=== PATIENT | female | born 1950 | race Caucasian/White ===

== ENCOUNTER 2018-04-07 12:29 | Emergency (ER) | payer MEDICARE, OTHER, SELFPAY ==
--- NOTE | 2018-04-07 | DI.RAD.S_ITS ---
PROCEDURE: XR WRIST LT 2V INDICATIONS: POST CLOSED REDUCTION left wrist TECHNIQUE: 3 views of the wrist were acquired. COMPARISON: [facility], CR, XR WRIST LT MIN 3V, 04/07/2018, 12:55. FINDINGS: Bones: Improved alignment, status post reduction of distal radial and ulnar fractures. There is residual loss of the normal volar angulation of the distal radial articular surface Soft tissues: No suspicious soft tissue calcifications. IMPRESSION: Improved alignment. Dictated by: Clement Cota M.D. on 04/07/2018 at 14:55 Approved by: Clement Cota M.D. on 04/07/2018 at 14:56
[2018-04-07 12:32] VITALS: BP 173/104; PULSE 100; RESP 18; TEMP 36.3; O2SAT 100; BMI 19.3
--- NOTE | 2018-04-07 12:36 | ED_ITS ---
HPI - Fall <Rut Llanos PA-C - Last Filed: 04/07/18 21:29> General Chief Complaint: Extremity Injury, Upper Stated Complaint: LT WRIST FELL Time Seen by Provider: 04/07/18 12:35 Source: patient Mode of arrival: ambulatory Limitations: no limitations History of Present Illness HPI Narrative: This 67-year-old female, right handed, slipped on some ice in her driveway and fell onto her left hand and wrist ( hand and wrist were behind her). She has had pain and swelling since then and concern for fracture as she has a history of osteoporotic fractures including scaphoid fracture in that hand. She denies any head contusion, LOC, or other injury. She took Tylenol at home with some water, other than that last PO 8 a.m. today Related Data Home Medications Medication Instructions Recorded Confirmed carbamazepine 400 mg PO Q12H #0 09/24/16 pramipexole 0.5 mg PO #0 09/24/16 valsartan 160 mg PO QDAY #0 09/24/16 Previous Rx's Medication Instructions Recorded hydrocodone-acetaminophen [Central] 1 tab PO Q4-6H PRN #10 tab 04/07/18 Allergies Allergy/AdvReac Type Severity Reaction Status Date / Time clindamycin [CLINDAMYCIN] Allergy Unknown Verified 04/07/18 12:36 cyclobenzaprine Allergy Unknown Verified 04/07/18 12:36 [CYCLOBENZAPRINE] iodine [IODINE] Allergy Unknown Verified 04/07/18 12:36 Penicillins [PENICILLINS] Allergy Unknown Verified 04/07/18 12:36 phenytoin [PHENYTOIN] Allergy Unknown Verified 04/07/18 12:36 Review of Systems <Rut Llanos PA-C - Last Filed: 04/07/18 21:29> Review of Systems ROS Unobtainable: All systems reviewed & are unremarkable except as noted in HPI and below Exam <Rut Llanos PA-C - Last Filed: 04/07/18 21:29> Narrative Exam Narrative: GENERAL APPEARANCE: Patient sitting comfortably, in no distress. LUNGS: Clear to auscultation bilaterally. HEART: Rate and rhythm regular without murmur, normal S1 and S2, no S3 or S4. MUSCULOSKELETAL: Left posterior wrist there is moderate effusion at the joint line which is tender. She is not able to move the wrist secondary to tenderness. She has mild tenderness in the left ulnar groove, no tenderness elsewhere over the forearm. Left 5th finger has flexion deformity. She otherwise has full range of motion of the left hand fingers with superintendent general and strength intact against resistance. She has tenderness in the left snuffbox, no tenderness elsewhere over the metacarpals or fingers. DERMATOLOGIC: Ecchymoses and hematoma left posterior wrist at the joint line NEUROVASCULAR: Left hand fingers are warm and pink with brisk cap refill, sensation grossly intact Initial Vital Signs Initial Vital Signs: Vital Signs Temperature 97.3 F L 04/07/18 12:32 Pulse Rate 100 H 04/07/18 12:32 Respiratory Rate 18 04/07/18 12:32 Blood Pressure 173/104 H 04/07/18 12:32 Pulse Oximetry 100 04/07/18 12:32 <Rae James DO - Last Filed: 04/08/18 07:23> Initial Vital Signs Initial Vital Signs: Vital Signs Temperature 97.3 F L 04/07/18 12:32 Pulse Rate 100 H 04/07/18 12:32 Respiratory Rate 18 04/07/18 12:32 Blood Pressure 173/104 H 04/07/18 12:32 Pulse Oximetry 100 04/07/18 12:32 PFSH <Rut Llanos PA-C - Last Filed: 04/07/18 21:29> Medical History Epilepsy (Chronic) H/O: HTN (hypertension) (Chronic) Osteoporosis (Chronic) Surgical History Status post decompression of ulnar nerve (Resolved) Family History Other No pertinent family history in first degree relatives Social History Smoking Status: Former smoker Family History Other No pertinent family history in first degree relatives Social History Smoking Status: Former smoker Course <Rut Llanos PA-C - Last Filed: 04/07/18 21:29> Additional Information: Dr. Thompson came to ED to evaluate patient. She did a hematoma block on the wrist, reduced the fracture and placed a splint herself. The fracture appeared well aligned on x-ray. Patient was placed in a sling and reported feeling much more comfortable. She will follow up with Dr. Thompson in her office Orders Ordered: Discontinued Medications Hydrocodone Bitart/Acetaminophen (Central 5/325) 1 tab PO NOW ONE Stop: 04/07/18 13:26 Last Admin: 04/07/18 13:52 Dose: 1 tab Vital Signs - 8 hr 04/07/18 12:32 Temperature 97.3 F L Pulse Rate 100 H Respiratory Rate 18 Blood Pressure 173/104 H Pulse Oximetry 100 <Rae James DO - Last Filed: 04/08/18 07:23> Orders Ordered: Discontinued Medications Hydrocodone Bitart/Acetaminophen (Central 5/325) 1 tab PO NOW ONE Stop: 04/07/18 13:26 Last Admin: 04/07/18 13:52 Dose: 1 tab Vital Signs - 8 hr 04/07/18 12:32 Temperature 97.3 F L Pulse Rate 100 H Respiratory Rate 18 Blood Pressure 173/104 H Pulse Oximetry 100 MDM - Fall <Rut Llanos PA-C - Last Filed: 04/07/18 21:29> Imaging Data hand and wrist: Radiologist's impression: [address] [address] XRay Report Signed Patient: Luz Koch EMR#: [id number] : 1950cct:[id number] Age/Sex: 67 / FDate of Service: 04/07/18 Loc: ED Accession Number: [id number] Procedure: XR hand LT min 3V Ordering Provider: Rut Llanos P.A-C PROCEDURE: XR HAND LT MIN 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 COMPARISON: [facility], [place], XR WRIST LT MIN 3V, 04/07/2018, 12:55. FINDINGS: Bones: First CMC and triscaphe joint degeneration. Chronic appearing deformity of the scaphoid presumably from clinic reported prior scaphoid fracture. There is acute impacted distal radial fracture as well as ulnar styloid fracture, better characterized on the comparison wrist radiographs dated same day Soft tissues: No suspicious soft tissue calcifications. IMPRESSION: No definite acute scaphoid fracture although chronic deformity from remote trauma. Impacted distal radial and ulnar styloid tip fracture Dictated by: Clement Cota M.D. on 04/07/2018 at 13:18 Approved by: Clement Cota M.D. on 04/07/2018 at 13:20 Chart Viewer Diagnostics Hx 04/07/18 13:21 Clement Cota 04/07/18 13:19 CotaKendrickClement Elpidio Kochia Nitin 67, F1950 REG ER, ED - Main ED: R07 160.02cm 49.442kg BMI: 19.3kg/m? Extremity Injury, Upper Search Chart ONSET Today 12:32 Gloria Kochricia Nitin 67 F 1950 [place] [address] XRay Report Signed Patient: Luz Koch EMR#: [id number] : 1950cct:[id number] Age/Sex: 67 / FDate of Service: 04/07/18 Loc: ED Accession Number: [id number] Procedure: XR wrist LT min 3V Ordering Provider: Rut Llanos P.A-C PROCEDURE: XR WRIST LT MIN 3V INDICATIONS: fall w/ left wrist pain. TECHNIQUE: 4 views of the wrist were acquired. COMPARISON: None. FINDINGS: Bones: Impacted fracture of the distal radial metaphysis with intra-articular extension. There is also minimally displaced ulnar styloid fracture Associated circumferential soft tissue swelling. IMPRESSION: Impacted intra-articular distal radial metaphyseal fracture. Ulnar styloid fracture. Dictated by: Clement Cota M.D. on 04/07/2018 at 13:17 Approved by: Clement Cota M.D. on 04/07/2018 at 13:18 Discharge Plan Departure Patient Disposition: Home Clinical Impression: Fracture of radius and ulna Qualifiers: Encounter type: initial encounter Fracture type: closed Laterality: left Qualified Code(s): S52.92XA - Unspecified fracture of left forearm, initial encounter for closed fracture Discharge Date/Time: 04/07/18 14:56 Interventions: ED Discharge Assessment Last Done: 04/07/18 14:55 Instructions: DI for Distal Radius Fracture Activity Restrictions/Additional Instructions: you have breaks at the ends of both of the bones in your forearm, and the radius ( on the thumb side) was impacted. Dr. Camara has reduced this today, and the alignment looks good. She will want you to call tomorrow and follow-up in her office next week, so please let them know that she saw you in the emergency room today and wants you to follow up in the office this week. Return right away if you have any acutely worsening pain or problems with the splint in the interim. You can take the hydrocodone /acetaminophen if you needed, but remember it can make you sleepy. You can change back to Tylenol when your pain is better (you may wish to try Tylenol arthritis Strength or 8 hr which is a lower dose and longer lasting ). You can wear the arm sling as needed for comfort and support until you follow up. It is okay to take that off as well, but make sure you leave the splint on at all times and keep it dry. Prescriptions: New hydrocodone-acetaminophen [Central] 5-325 mg tablet 1 tab PO Q4-6H PRN (Reason: wrist fracture pain) Qty: 10 RF: 0 No Action pramipexole 0.5 MG tablet 0.5 mg PO Qty: 0 RF: 0 carbamazepine 400 MG tablet extended release 12 hr 400 mg PO Q12H Qty: 0 RF: 0 valsartan 160 MG tablet 160 mg PO QDAY Qty: 0 RF: 0 Referrals: Kiley Thompson MD [Physician] - <Rae James DO - Last Filed: 04/08/18 07:23> [facility] I was immediately available in the department for consultation. This documentation has been reviewed and I agree with assessment and plan. Supervised by Rae James DO
--- NOTE | 2018-04-07 12:39 | DI.RAD.S_ITS ---
PROCEDURE: XR WRIST LT MIN 3V INDICATIONS: fall w/ left wrist pain. TECHNIQUE: 4 views of the wrist were acquired. COMPARISON: None. FINDINGS: Bones: Impacted fracture of the distal radial metaphysis with intra-articular extension. There is also minimally displaced ulnar styloid fracture Associated circumferential soft tissue swelling. IMPRESSION: Impacted intra-articular distal radial metaphyseal fracture. Ulnar styloid fracture. Dictated by: Clement Cota M.D. on 04/07/2018 at 13:17 Approved by: Clement Cota M.D. on 04/07/2018 at 13:18
--- NOTE | 2018-04-07 12:57 | DI.RAD.S_ITS ---
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 COMPARISON: [facility], CR, XR WRIST LT MIN 3V, 04/07/2018, 12:55. FINDINGS: Bones: First CMC and triscaphe joint degeneration. Chronic appearing deformity of the scaphoid presumably from clinic reported prior scaphoid fracture. There is acute impacted distal radial fracture as well as ulnar styloid fracture, better characterized on the comparison wrist radiographs dated same day Soft tissues: No suspicious soft tissue calcifications. IMPRESSION: No definite acute scaphoid fracture although chronic deformity from remote trauma. Impacted distal radial and ulnar styloid tip fracture Dictated by: Clement Cota M.D. on 04/07/2018 at 13:18 Approved by: Clement Cota M.D. on 04/07/2018 at 13:20
[2018-04-07] MEDS: HYDROCODONE/ACET 5/325 TABLET 1 TAB PO (13:52)
--- NOTE | 2018-04-07 15:07 | PM.CN ---
History of Present Illness Date Patient Seen: 04/07/18 Time Patient Seen: 14:30 Chief complaint: LT WRIST FELL Reason for consult: Wrist fracture Requesting provider: Rut Llanos Narrative: Marcos is a 67-year-old female that is right-hand dominant. She presents to the ER with left wrist pain and deformity after falling on the ice. The patient had just come back from a trip to [place] for 3 weeks last night when she fell on the ice and sustained immediate pain ecchymosis and deformity of her non dominant wrist. Patient was seen in the emergency room and found to have a displaced distal radius fracture with dorsal angulation. 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 She has had previous ulnar nerve surgeries by Dr. Marie and Dr. Cabral. She also has a previous history of a distal pole scaphoid fracture on the left side. Patient denies new numbness and tingling today has no evidence of acute carpal tunnel syndrome. He denies injury elsewhere on her body. She denies fevers or chills PFSH Medical History Epilepsy (Chronic) H/O: HTN (hypertension) (Chronic) Osteoporosis (Chronic) Surgical History Status post decompression of ulnar nerve (Resolved) Family History Other No pertinent family history in first degree relatives Social History Smoking Status: Former smoker Family History Other No pertinent family history in first degree relatives Social History Smoking Status: Former smoker Meds Home Medications Medication Instructions Recorded Confirmed Type carbamazepine 400 mg PO Q12H #0 09/24/16 History pramipexole 0.5 mg PO #0 09/24/16 History valsartan 160 mg PO QDAY #0 09/24/16 History hydrocodone-acetaminophen [[place]] 1 tab PO Q4-6H PRN #10 tab 04/07/18 Rx Allergies Allergy/AdvReac Type Severity Reaction Status Date / Time clindamycin [CLINDAMYCIN] Allergy Unknown Verified 04/07/18 12:36 cyclobenzaprine Allergy Unknown Verified 04/07/18 12:36 [CYCLOBENZAPRINE] iodine [IODINE] Allergy Unknown Verified 04/07/18 12:36 Penicillins [PENICILLINS] Allergy Unknown Verified 04/07/18 12:36 phenytoin [PHENYTOIN] Allergy Unknown Verified 04/07/18 12:36 Review of Systems Review of Systems All systems reviewed & are unremarkable except as noted in HPI and below Exam Vital Signs (past 8 hours): - 04/07/18 12:32 Temperature 97.3 F L Pulse Rate 100 H Respiratory Rate 18 Blood Pressure 173/104 H Pulse Oximetry 100 Oxygen Delivery Method Room Air Narrative Exam Narrative: General examination: Patient is alert and oriented female in no acute distress. HEENT exam: Normocephalic atraumatic Respiratory exam: Unlabored to room air Cardiovascular exam: Regular rate and rhythm Abdomen exam: Benign Musculoskeletal examination: Right upper extremity and both lower extremities show no gross deformity and full range of motion. Sensation grossly intact to light touch and normal strength. Demonstrates active wrist flexion extension elbow wrist flexion extension and ankle motion of the bilateral lower extremities. Left upper extremity demonstrates a deformity noted at the wrist with a dorsal moderate hematoma. Sensation grossly intact to light touch mild swelling no erythema no signs or symptoms of infection. No evidence of open fracture. She demonstrates full flexion extension of the elbow. No pain about the shoulder. Brisk capillary refill Objective Imaging X-ray left wrist: My impression: X-ray left wrist pre reduction demonstrate a dorsally impacted distal radius fracture with approximately 25? of dorsal angulation. Does appear to be a nondisplaced fracture line into the joint surface. There is also a very small ulnar styloid fracture. There is a deformity at the distal scaphoid consistent with her known history of previous trauma and moderate arthritic changes throughout the carpus. Radiologist's impression: IMPRESSION: Impacted intra-articular distal radial metaphyseal fracture. Ulnar styloid fracture. Dictated by: Clement Cota M.D. on 04/07/2018 at 13:17 Approved by: Clement Cota M.D. on 04/07/2018 at 13:18 X-ray left wrist postreduction: My impression: X-ray left wrist AP lateral including a lateral during the reduction procedure demonstrate improved alignment of the impacted distal radius fracture with dorsal tilt reduced to less than 10? in the final in splint x-rays. Reduction x-ray appears approximately neutral angulation. Radiologist's impression: IMPRESSION: Improved alignment. Dictated by: Clement Cota M.D. on 04/07/2018 at 14:55 Approved by: Clement Cota M.D. on 04/07/2018 at 14:56 Assessment & Plan Assessment Narrative: 1. Left distal radius and ulnar fractures intra-articular with dorsal displacement Time Spent With Patient Time with patient: 25 - 35 minutes
--- NOTE | 2018-04-07 15:18 | PM.PROC.1 ---
Procedures Date/Time Date of procedure: 04/07/18 Time of procedure: 14:30 Orthopedic Fracture Reduction Time out performed: Yes Side: left Fracture reduction location: radius Analgesia: hematoma block Technique: direct manipulation Post-reduction neuro exam: intact Post-reduction vascular exam: intact Splint applied: Yes Patient tolerated procedure: well Additional comments: After a verbal consent was obtained the patient underwent a hematoma block of the left wrist with 10 cc of a 50 50 mixture of 0.5% Marcaine and 2% lidocaine. The patient was then hung in traction from an IV pole with a 6 lb of weight for approximately 10 min for ligamentoaxis. Following this the with direct manipulation and standard 3 point mold manipulation to reduce the distal radius fracture this was held in position and x-rays were obtained showing improved angulation of the radius to approximately neutral while holding of the wrist in flexion. The wrist was then splinted in a sugar-tong style splint and post reduction x-rays were obtained. The patient tolerated the procedure well.
== END 2018-04-07 14:56 | disposition home or self-care (01) ==
PROVIDERS: Emergency Provider Internal Medicine
DX: S52.92XA Unspecified fracture of left forearm, initial encounter for closed fracture (principal); W01.0XXA Fall on same level from slipping, tripping and stumbling without subsequent striking against object, initial encounter
CPT/HCPCS: 73100; 73110; 73130; 99282; 99283

== ENCOUNTER 2018-05-03 10:41 | Day surgery (SDC) | payer MEDICARE, OTHER, SELFPAY ==
[2018-05-02 07:41] VITALS: BMI 20.5
[2018-05-03 11:30] VITALS: BMI 19.8
[2018-05-03 11:42] VITALS: BP 155/97; PULSE 80; RESP 16; TEMP 36.4; O2SAT 98
[2018-05-03] MEDS: LACTATED RINGERS 1,000 ML 42 ML IV (11:56)
--- NOTE | 2018-05-03 12:50 | PM.PREOP ---
Pre-operative Note Interval Note History & Physical reviewed/Exam performed by Physician: Yes Changes to H&P: No
[2018-05-03] MEDS: CEFAZOLIN 2 GM/100 ML FROZ.PIGGY IV (12:55)
--- NOTE | 2018-05-03 13:00 | P.OP_ITS ---
Operative Date/Time/Diagnoses Date of procedure: 05/03/18 Time of procedure: 13:15 Pre-op diagnosis: 1. closed intra-articular fracture left distal radius S52.572 2. closed displaced fracture ulnar styloid left S52.612 Post-op diagnosis: same Procedure & Clinicians Procedure: open reduction internal fixation left distal radius fracture CPT code 81312 Closed treatment left ulnar styloid fracture Same procedure as scheduled: Yes Indications: the patient is a 67-year-old female with a left distal radius and ulnar styloid fractures. She had a loss of reduction and increased dorsal angulation of approximately 25? which was increased significantly from a x-ray 2 weeks ago that was in a cast. She has been indicated for open reduction internal fixation due to significant cosmetic deformity and range of motion reduction. The patient is very active and wishes to have surgery. We discussed the older lower demand patients often do well with non operatively treated distal radius fractures however the deformity would remain and loss of motion would be expected. The patient would like to proceed with surgery. Discussed risks associated with surgery including infection, hardware irritation, Malunion, nonunion, nerve irritation, damage to vessels and tendons and risks of anesthesia including stroke paralysis and . The patient understands and like to proceed with surgery. informed consent was signed in the office. Surgeon: Kiley Thompson Legal Support Assistant: April Kwon Anesthesia Type: General and Local Operative Notes Findings: Dorsally angulated left distal radius fracture, dorsal comminution. moderate soft callus formation, Dorsally partly healed fracture volarly. Closure Type: primary Specimen(s): none sent Prosthetic devices, grafts, tissues, transplants, or devices: [employer] narrow standard plate left Estimated Blood Loss (mL): 10 Blood products transfused: none Tourniquet time (min): 73 Procedure in detail: The patient sustained a left displaced distal radius and ulnar styloid fractures, she initially had a hematoma block reduction and we had adequate alignment in a splint at 1 week postoperative visit so this was overwrapped. The patient refers turned for additional followup she is noted to have collapse of her fracture increased dorsal angulation and evolving malunion. Patient was indicated for operative reduction and internal fixation restore volar alignment and stability and present motion loss. Risks benefits alternatives of procedure were discussed at length patient and expressed her understanding these included but were not limited to bleeding, infection, damage to nerves, prominent hardware, pain, malunion, nonunion, blood clots, pulmonary embolus, cardiovascular risks associated with general anesthesia. Informed consent was signed in the office. Patient was seen and site of surgery was marked in the preoperative area. The patient was then brought to the operating room by the anesthesia team and placed on the operative table in a standard fashion the supine position with a hand table on the left side. General anesthesia was administered. These were on the legs and all bony prominences were padded. A nonsterile brachial tourniquet was placed. A formal time-out procedure was performed confirming the patient's side and site of surgery and administration of appropriate preoperative antibiotics. All personnel agreed. Implants were present. After formal sterile prep and draping the extended FCR approach was marked out on the wrist. Esmarch was then utilized for exsanguination the tourniquet raised to 250 mm of mercury and stayed there for 73 min. Extended FCR approach was undertaken a sharp dissection was taken to the skin. FCR was exposed and the sheath was opened. Tendon was retracted ulnar to protect the palmar cutaneous branch of the median nerve. The floor of the FCR was then opened to expose the deep muscles. FPL was retracted ulnarly and the pronator quadratus was released on the radial border and reflected ulnar to expose the distal radius and the distal fracture. Fracture was nearly healed volarly. The brachioradialis was released and the radial sheath was released exposing the 1st extensor compartment tendons. These were retracted to allow access to the dorsal cortex. Retractor was used to protect the extensor tendons while a curette was used to clean the fracture callus from the dorsal of the distal radius. Additionally a blade was used volarly to her mobilize the distal fragment. Once this was completed palmar flexion was completed to her restore the volar angulation of the distal radius. Next a standard narrow plate from the [employer] set was fit to the distal radius this was secured to the shaft with a 3.5 screw in the oblong hole. The proximal distal location of the plate was adjusted using fluoroscopy imaging. Once this was selected K-wire was placed through the proximal K-wire hole in the plate. Then the shaft screw was secured. Next to the ulnar proximal screw was placed and secured with a fully threaded peg. Next a fully threaded peg was placed in the a radial styloid screw hole. This was checked on x-ray and adequate alignment was determined there for the rest of the distal site filled with smooth locking pegs. Attention was returned to the shaft and 2 more bicortical screws were placed in the shaft. Final x-rays were obtained in the AP and lateral planes in additionally flexion extension views were taken to confirm range of motion and additional views were taken to confirm no intra-articular penetration of the screws. we were satisfied with the alignment. The tourniquet was released hemostasis was achieved and the pronator quadratus was closed over the plate using a of 3 0 Vicryl suture deep. Subcutaneous suture was completed with 4 0 Monocryl 3 0 Vicryl and 3 O nylon. Sterile dressings and a volar splint were applied. No immediate complications from this procedure noted. All surgical counts were correct. The patient tolerated the procedure well was taken to the recovery room good condition. Complications: none Condition: stable Disposition: PACU Plan for aftercare: Maintain splint clean and dry. patient is encouraged to move the fingers to avoid stiffness and help with swelling reduction. Ibuprofen and Tylenol as needed for pain control. May do finger range of motion and elbow range of motion as tolerated. 2 lb lifting restriction ( Lift no more than a coffee cup). Return to clinic in 2 weeks for splint removal suture removal and placement of removable wrist brace. Start physical therapy/hand therapy at 2 weeks postoperatively to work on wrist hand and elbow range of motion. Maintain 2 lb weight limit.
--- NOTE | 2018-05-03 13:19 | SUR.OPER ---
Supine on padded OR bed, head on pillow, RIGHT arm secured on padded arm board at <90 degrees abduction, LEFT ARM ON STERILE ARMBOARD legs uncrossed, safety belt at thigh, tape over blanket over lower legs.
[2018-05-03] MEDS: BUPIVACAINE 0.25% (PF) VIAL 30 ML INJ (13:24)
[2018-05-03 15:02] VITALS: BP 142/91; PULSE 86; RESP 15; TEMP 36.1; O2SAT 96
[2018-05-03 15:05] VITALS: BP 129/83; PULSE 78; RESP 16; O2SAT 96
[2018-05-03 15:10] VITALS: BP 154/94; PULSE 85; RESP 16; O2SAT 96
[2018-05-03] MEDS: fentaNYL 100 MCG/2 ML INJ 50 MCG IV ×2 (15:19→15:27)
[2018-05-03 15:25] VITALS: BP 165/97; PULSE 84; RESP 17; O2SAT 96
[2018-05-03] MEDS: HYDROCODONE/ACET 5/325 TABLET 1 TAB PO (15:47)
[2018-05-03 15:48] VITALS: BP 158/96; PULSE 80; RESP 16; TEMP 36.9; O2SAT 96
== END 2018-05-03 16:07 | disposition home or self-care (01) ==
PROVIDERS: PCP Family Medicine; Visit Provider Orthopaedic Surgery Foot and Ankle Surgery
PROC: (CPT 25608; principal; 2018-05-03 12:30)
DX: S52.572A Other intraarticular fracture of lower end of left radius, initial encounter for closed fracture (principal); S52.612A Displaced fracture of left ulna styloid process, initial encounter for closed fracture; W00.9XXA Unspecified fall due to ice and snow, initial encounter; M81.0 Age-related osteoporosis without current pathological fracture
CPT/HCPCS: 25608; J0690; J1100; J2405; J2704; J3010

== ENCOUNTER 2018-05-23 17:32 | Inpatient (IN) | payer MEDICARE, OTHER, SELFPAY ==
--- NOTE | 2018-05-23 | DI.RAD.S_ITS ---
PROCEDURE: XR CHEST 1V INDICATIONS: LEFT HIP PAIN TECHNIQUE: One view of the chest was acquired. COMPARISON: None. FINDINGS: Surgical changes and devices: None. Lungs and pleura: Lungs are clear except for a mild interstitial prominence, but the inspiratory volume is reduced which accentuates the lung markings. No pleural effusions or pneumothorax. Mediastinum: Mediastinal contours appear normal. Heart size is normal. Bones and chest wall: No suspicious bony lesions. Overlying soft tissues appear unremarkable. IMPRESSION: Reduced inspiratory volume, what appears to be a very mild degree of interstitial prominence is present but no acute disease or evidence of underlying infection or neoplasm is found. Dictated by: Agapito Knutson M.D. on 05/23/2018 at 18:44 Approved by: Agapito Knutson M.D. on 05/23/2018 at 18:45
[2018-05-23 17:47] VITALS: BP 182/110; PULSE 112; RESP 16; TEMP 36.9; O2SAT 98; BMI 19.5
--- NOTE | 2018-05-23 17:49 | DI.RAD.S_ITS ---
PROCEDURE: XR HIP W PEL IF DONE LT 2V INDICATIONS: pain fall TECHNIQUE: 2 views of the hip were acquired. COMPARISON: None. FINDINGS: Bones: No dislocations. No suspicious bony lesions. The visualized pelvic ring appears intact. There is a intertrochanteric left hip fracture, without additional injury to the pelvis. The left symphysis pubis is seen and on and may be slightly distorted. Soft tissues: No suspicious soft tissue calcifications or masses. Impression: Acute intertrochanteric left hip fracture, possible fracture the symphysis pubis on the left. A pelvic CT appears scheduled and would more accurately assess the area of the symphysis pubis. IMPRESSION: Dictated by: Agapito Knutson M.D. on 05/23/2018 at 18:36 Approved by: Agapito Knutson M.D. on 05/23/2018 at 18:38
[2018-05-23] MEDS: MORPHINE 2 MG/ML INJ IV (18:08)
--- NOTE | 2018-05-23 18:11 | DI.CT.S_ITS ---
PROCEDURE: CT PEL WO CON INDICATIONS: fracture left hip and pelvis TECHNIQUE: Noncontrast 3 mm axial sections acquired through the bony pelvis, with coronal and sagittal reformatting. COMPARISON: [facility], , L-SPINE 2-3 VIEWS, 09/01/2010, 15:51. FINDINGS: Image quality: Excellent. Bones: Definite acute intertrochanteric left hip fracture, angulated and mildly impacted. There is a distortion of the symphysis pubis on the left, and in this clinical circumstance it may reflect acute trauma but also could represent sequela of old fracture. Soft tissues: No hematoma found. IMPRESSION: Acute intertrochanteric left hip fracture. Possible acute versus subacute or chronic left symphysis pubis fracture-please correlate clinically. A point tenderness is currently present exactly at that site acute fracture would be presumed. Please note that MR scanning can easily differentiate between chronic versus acute injuries of the osseous structures of the pelvis. Dictated by: Agapito Knutson M.D. on 05/23/2018 at 18:58 Approved by: Agapito Knutson M.D. on 05/23/2018 at 19:00
[2018-05-23 18:53] VITALS: BP 172/101; PULSE 114; RESP 18; O2SAT 98
--- NOTE | 2018-05-23 19:25 | ED.FALL ---
HPI - Fall <BALTAZAR Barnhart - Last Filed: 05/23/18 22:04> General Chief Complaint: Fall Stated Complaint: GLF Time Seen by Provider: 05/23/18 17:49 Source: patient and EMS Mode of arrival: EMS Limitations: no limitations History of Present Illness HPI Narrative: 67-year-old female with history of hypertension and is a nonsmoker here for complaint of pain into her left hip. She had a ground level fall where she tripped over 1 of her rugs landing on her left hip area. She states that the pain is limited to her left hip/left upper leg area. She denies any head injury. She denies any abdominal pain. No other concerns or complaints at this timeframe. She is brought in by ambulance due to increased pain with ambulation. She has difficulty ambulating due to discomfort. MD complaint: fall Related Data Home Medications Medication Instructions Recorded Confirmed carbamazepine 400 mg PO Q12H #0 09/24/16 05/23/18 irbesartan 150 mg PO DAILY 05/03/18 05/23/18 Previous Rx's Medication Instructions Recorded hydrocodone-acetaminophen [[place]] 1 tab PO Q4-6H PRN #10 tab 04/07/18 Allergies Allergy/AdvReac Type Severity Reaction Status Date / Time clindamycin [CLINDAMYCIN] Allergy Unknown Gastrointestinal Verified 05/23/18 17:51 Upset, colitis cyclobenzaprine Allergy Unknown Unknown Verified 05/23/18 17:51 [CYCLOBENZAPRINE] iodine [IODINE] Allergy Unknown Hives Verified 05/23/18 17:51 Penicillins [PENICILLINS] Allergy Unknown Hives Verified 05/23/18 17:51 phenytoin [PHENYTOIN] Allergy Unknown Seizure Verified 05/23/18 17:51 Review of Systems <BALTAZAR Barnhart - Last Filed: 05/23/18 22:04> Constitutional Denies chills, Denies fever(s), Denies lethargy and Denies weakness Eyes Denies change in vision, Denies eye discharge, Denies irritation and Denies loss of vision ENT Ears, Nose, Mouth, and Throat: Denies change in voice, Denies neck pain and Denies sore throat Cardiovascular Denies chest pain, Denies irregular heart rhythm, Denies lightheadedness, Denies palpitations, Denies dyspnea, Denies dyspnea on exertion and Denies orthopnea Respiratory Denies cough, Denies dyspnea, Denies dyspnea on exertion and Denies wheezing Gastrointestinal Gastrointestinal: Denies abdominal pain, Denies change in bowel habits, Denies diarrhea, Denies nausea and Denies vomiting Genitourinary Denies hematuria, Denies flank pain, Denies urinary incontinence and Denies urinary urgency Musculoskeletal Denies neck pain Comments: Pain to left hip area after fall Integumentary/Breasts Denies pruritus, Denies erythema, Denies rash and Denies wounds Neurologic Denies loss of vision and Denies weakness Endocrine Denies palpitations Hematologic/Lymphatic Denies easy bruising Allergic/Immunologic Denies wheezing Exam <BALTAZAR Barnhart - Last Filed: 05/23/18 22:04> Initial Vital Signs Initial Vital Signs: Vital Signs Temperature 98.4 F 05/23/18 17:47 Pulse Rate 112 H 05/23/18 17:47 Respiratory Rate 16 05/23/18 17:47 Blood Pressure 182/110 H 05/23/18 17:47 Pulse Oximetry 98 05/23/18 17:47 Const General: cooperative and well developed Nutritional Appearance: well nourished Orientation: alert, awake, oriented x3 and not confused [facility] Mouth: oral mucosae normal and moist mucous membranes Eyes Conjunctivae: conjunctivae normal Sclera: sclerae normal Pupils: PERRL EOM: EOM intact bilaterally Resp Effort & Inspection: normal respiratory effort, able to speak in complete sentences, no respiratory distress and no use of accessory muscles Auscultation: clear to auscultation bilaterally, no rales, no rhonchi and no wheezes Cardio Rate: regular rate Rhythm: regular rhythm Heart Sounds: no click, no gallops, no murmurs and no rubs Pulses: normal peripheral pulses Skin General: no rashes or lesions noted, No jaundice and No petechiae Neuro General: alert, oriented x3, gait normal and no focal motor deficits Speech: speech normal Extrem Other: Left hip with no significant signs of trauma. No ecchymosis. No deformities. No erythema. No open lesions. Distal sensation is intact. Distal range of motion is intact. Distal pulses are intact. <Shahid Santos DO - Last Filed: 05/24/18 00:49> Initial Vital Signs Initial Vital Signs: Vital Signs Temperature 98.4 F 05/23/18 17:47 Pulse Rate 112 H 05/23/18 17:47 Respiratory Rate 16 05/23/18 17:47 Blood Pressure 182/110 H 05/23/18 17:47 Pulse Oximetry 98 05/23/18 17:47 PFSH <BALTAZAR Barnhart - Last Filed: 05/23/18 22:04> Medical History History of patellar fracture (Acute) History of pelvic fracture (Acute) History of wrist fracture (Acute) Osteoporosis with pathological fracture of multiple sites (Acute) Former smoker (Acute) HTN (hypertension) (Acute) Epilepsy (Chronic) Osteoporosis (Chronic) Surgical History H/O decompression of ulnar nerve (Acute) History of carpal tunnel release (Acute) Status post decompression of ulnar nerve (Resolved) Family History Other No pertinent family history in first degree relatives Social History household members: none Smoking Status: Former smoker alcohol intake: current Family History Mother Congestive heart failure Hypertension Father Congestive heart failure Sister Hypertension Scoliosis Other No pertinent family history in first degree relatives Social History household members: none Smoking Status: Former smoker alcohol intake: current Course <BALTAZAR Barnhart - Last Filed: 05/23/18 22:04> Orders Ordered: ED Orders 05/23/18 17:49 XR hip w pel if done LT 2V Stat 05/23/18 18:11 CT pelvis wo con Stat 05/23/18 19:32 XR femur LT min 2V Stat 05/23/18 23:20 Consult to Discharge Planning Routine Consult to Occupational Therapy Evaluate & Treat Consult to Physical Therapy Evaluate & Treat Consult to Physician Routine 05/23/18 23:50 Carbamazepine Tegretol Level Urgent Complete Blood Count AUTO DIFF Urgent Comprehensive Metabolic Panel Urgent 05/24/18 Basic Metabolic Panel Routine Complete Blood Count AUTO DIFF Routine Partial Thromboplastin Time Routine Prothrombin Time INR Routine Acetaminophen (Tylenol) 650 mg PO Q6HR PRN PRN Reason: As Needed for Fever/Mild Pain Bisacodyl (Dulcolax) 10 mg PO DAILY PRN PRN Reason: Constipation Carbamazepine (Tegretol Xr) 400 mg PO Q12H [facility] Last Admin: 05/24/18 00:34 Dose: Not Given Sodium Chloride (Normal Saline 0.9%) 1,000 mls @ 100 mls/hr IV CONT [facility] Last Admin: 05/24/18 00:33 Dose: 100 mls/hr Irbesartan (Avapro) 150 mg PO DAILY [facility] Morphine Sulfate (Morphine) 2 mg IV Q4HR PRN PRN Reason: Pain, Moderate (4-6) Morphine Sulfate (Morphine) 4 mg IV Q4HR PRN PRN Reason: Pain, Severe (7-10) Last Admin: 05/24/18 00:33 Dose: 4 mg Ondansetron HCl (Zofran) 4 mg IV Q8HR PRN PRN Reason: Nausea And Vomiting Pantoprazole Sodium (Protonix) 20 mg PO 0600 [facility] Last Admin: 05/24/18 00:36 Dose: Not Given Discontinued Medications Carbamazepine (Tegretol) 400 mg PO NOW ONE Stop: 05/23/18 21:18 Last Admin: 05/23/18 21:47 Dose: 400 mg Sodium Chloride (Normal Saline 0.9%) 1,000 mls @ 1,000 mls/hr IV BOLUS ONE Stop: 05/23/18 22:30 Last Admin: 05/23/18 21:40 Dose: 1,000 mls/hr Morphine Sulfate (Morphine) 2 mg IV NOW ONE Stop: 05/23/18 17:50 Last Admin: 05/23/18 18:08 Dose: 2 mg Morphine Sulfate (Morphine Sulfate) 4 mg IV NOW ONE Stop: 05/23/18 19:33 Last Admin: 05/23/18 19:40 Dose: 4 mg Vital Signs - 8 hr 05/23/18 17:47 05/23/18 18:53 05/23/18 20:51 Temperature 98.4 F 97.5 F L Pulse Rate 112 H 114 H 107 H Respiratory Rate 16 18 15 Blood Pressure 182/110 H Blood Pressure [Right Arm] 172/101 H 149/94 H Pulse Oximetry 98 98 95 05/23/18 21:50 05/24/18 00:00 Temperature 98.5 F 98.3 F Pulse Rate 113 H 106 H Respiratory Rate 18 18 Blood Pressure 157/99 H 153/84 H Blood Pressure [Right Arm] Pulse Oximetry 97 <Shahid Santos, DO - Last Filed: 05/24/18 00:49> Orders Ordered: ED Orders 05/23/18 17:49 XR hip w pel if done LT 2V Stat 05/23/18 18:11 CT pelvis wo con Stat 05/23/18 19:32 XR femur LT min 2V Stat 05/23/18 23:20 Consult to Discharge Planning Routine Consult to Occupational Therapy Evaluate & Treat Consult to Physical Therapy Evaluate & Treat Consult to Physician Routine 05/23/18 23:50 Carbamazepine Tegretol Level Urgent Complete Blood Count AUTO DIFF Urgent Comprehensive Metabolic Panel Urgent 05/24/18 Basic Metabolic Panel Routine Complete Blood Count AUTO DIFF Routine Partial Thromboplastin Time Routine Prothrombin Time INR Routine Acetaminophen (Tylenol) 650 mg PO Q6HR PRN PRN Reason: As Needed for Fever/Mild Pain Bisacodyl (Dulcolax) 10 mg PO DAILY PRN PRN Reason: Constipation Carbamazepine (Tegretol Xr) 400 mg PO Q12H [facility] Last Admin: 05/24/18 00:34 Dose: Not Given Sodium Chloride (Normal Saline 0.9%) 1,000 mls @ 100 mls/hr IV CONT [facility] Last Admin: 05/24/18 00:33 Dose: 100 mls/hr Irbesartan (Avapro) 150 mg PO DAILY [facility] Morphine Sulfate (Morphine) 2 mg IV Q4HR PRN PRN Reason: Pain, Moderate (4-6) Morphine Sulfate (Morphine) 4 mg IV Q4HR PRN PRN Reason: Pain, Severe (7-10) Last Admin: 05/24/18 00:33 Dose: 4 mg Ondansetron HCl (Zofran) 4 mg IV Q8HR PRN PRN Reason: Nausea And Vomiting Pantoprazole Sodium (Protonix) 20 mg PO 0600 [facility] Last Admin: 05/24/18 00:36 Dose: Not Given Discontinued Medications Carbamazepine (Tegretol) 400 mg PO NOW ONE Stop: 05/23/18 21:18 Last Admin: 05/23/18 21:47 Dose: 400 mg Sodium Chloride (Normal Saline 0.9%) 1,000 mls @ 1,000 mls/hr IV BOLUS ONE Stop: 05/23/18 22:30 Last Admin: 05/23/18 21:40 Dose: 1,000 mls/hr Morphine Sulfate (Morphine) 2 mg IV NOW ONE Stop: 05/23/18 17:50 Last Admin: 05/23/18 18:08 Dose: 2 mg Morphine Sulfate (Morphine Sulfate) 4 mg IV NOW ONE Stop: 05/23/18 19:33 Last Admin: 05/23/18 19:40 Dose: 4 mg Vital Signs - 8 hr 05/23/18 17:47 05/23/18 18:53 05/23/18 20:51 Temperature 98.4 F 97.5 F L Pulse Rate 112 H 114 H 107 H Respiratory Rate 16 18 15 Blood Pressure 182/110 H Blood Pressure [Right Arm] 172/101 H 149/94 H Pulse Oximetry 98 98 95 05/23/18 21:50 05/24/18 00:00 Temperature 98.5 F 98.3 F Pulse Rate 113 H 106 H Respiratory Rate 18 18 Blood Pressure 157/99 H 153/84 H Blood Pressure [Right Arm] Pulse Oximetry 97 MDM - Fall <BALTAZAR Barnhart - Last Filed: 05/23/18 22:04> Lab Data Result diagrams: 05/23/18 23:50 05/23/18 23:50 Lab Results 05/23/18 05/23/18 Range/Units 23:50 23:50 WBC 6.2 (4.5-11.0) X10^3/uL RBC 3.35 L (4.0-5.2) X10^6/uL Hgb 11.4 L (12.0-16.0) g/dL Hct 32.3 L (36-46) % MCV 96.3 (80-100) fL MCH 34.0 (26-34) PG MCHC 35.3 (30-36) % RDW 11.8 (11.6-14.8) % Plt Count 250 (150-400) X10^3/uL Neut % (Auto) 85.9 H (50-75) % Lymph % (Auto) 7.3 L (25-40) % Reynolds % (Auto) 6.3 (3-14) % Eos % (Auto) 0.1 L (2-4) % Baso % (Auto) 0.4 (0-2) % Neut # (Auto) 5300 (9089-4370) /uL Lymph # (Auto) 500 L (4301-7555) /uL Reynolds # (Auto) 400 (0-900) /uL Eos # (Auto) 0 (0-450) /uL Baso # (Auto) 0 (0-100) /uL Sodium 122 L (137-145) mmol/L Potassium 4.0 (3.4-5.1) mmol/L Chloride 88 L (98-107) mmol/L Carbon Dioxide 26 (22-32) mmol/L BUN 10 (7-17) mg/dL Creatinine 0.40 L (0.52-1.04) mg/dL Estimated GFR > 60.0 (>60) mL/min BUN/Creatinine Ratio 25.0 H (6-22) Glucose 139 H (80-110) mg/dL Calcium 8.9 (8.4-10.2) mg/dL Total Bilirubin 0.5 (0.2-1.3) mg/dL AST 27 (14-36) IU/L ALT 26 (9-52) IU/L Alkaline Phosphatase 66 (38-126) U/L Total Protein 7.0 (6.3-8.2) g/dL Albumin 4.2 (3.5-5.0) g/dL Globulin 2.8 (1.7-4.1) g/dL Albumin/Globulin Ratio 1.5 (1.0-2.8) Imaging Data Femur x-ray : Radiologist's impression: [address] [address] XRay Report Signed Patient: Luz Koch EMR#: [id number] : 3Acct:[id number] Age/Sex: 67 / FDate of Service: 05/23/18 Loc: ED Accession Number: [id number] Procedure: XR femur LT min 2V Ordering Provider: Librado Knapp PROCEDURE: XR FEMUR LT MIN 2V INDICATIONS: Pain to left femur ground after ground level fall TECHNIQUE: 3 views of the femur were acquired. COMPARISON: None. FINDINGS: Bones: No dislocations. No suspicious bony lesions. There is an intertrochanteric left hip fracture, and severe arthritis at the left knee but no fracture distally. Soft tissues: No suspicious soft tissue calcifications or masses. IMPRESSION: Acute intertrochanteric left hip fracture, severe osteoarthritis with [id number] articulation at the lateral compartment of the left knee. Dictated by: Agapito Knutson M.D. on 05/23/2018 at 20:26 Approved by: Agapito Knutson M.D. on 05/23/2018 at 20:27 CT hip and pelvis : Radiologist's impression: [address] [address] [address] Scan Report Signed Patient: Luz Koch EMR#: [id number] : 3Acct:[id number] Age/Sex: 67 / FDate of Service: 05/23/18 Loc: ED Accession Number: [id number] Procedure: CT pelvis wo con Ordering Provider: Nola Dobbs D.O. PROCEDURE: CT PEL WO CON INDICATIONS: fracture left hip and pelvis TECHNIQUE: Noncontrast 3 mm axial sections acquired through the bony pelvis, with coronal and sagittal reformatting. COMPARISON: [facility], , L-SPINE 2-3 VIEWS, 09/01/2010, 15:51. FINDINGS: Image quality: Excellent. Bones: Definite acute intertrochanteric left hip fracture, angulated and mildly impacted. There is a distortion of the symphysis pubis on the left, and in this clinical circumstance it may reflect acute trauma but also could represent sequela of old fracture. Soft tissues: No hematoma found. IMPRESSION: Acute intertrochanteric left hip fracture. Possible acute versus subacute or chronic left symphysis pubis fracture-please correlate clinically. A point tenderness is currently present exactly at that site acute fracture would be presumed. Please note that MR scanning can easily differentiate between chronic versus acute injuries of the osseous structures of the pelvis. Dictated by: Agapito Knutson M.D. on 05/23/2018 at 18:58 Approved by: Agapito Knutson M.D. on 05/23/2018 at 19:00 Hip x-ray : Radiologist's impression: [address] [address] XRay Report Signed Patient: Luz Koch EMR#: [id number] : 3Acct:[id number] Age/Sex: 67 / FDate of Service: 05/23/18 Loc: ED Accession Number: [id number] Procedure: XR hip w pel if done LT 2V Ordering Provider: Nola Dobbs D.O. PROCEDURE: XR HIP W PEL IF DONE LT 2V INDICATIONS: pain fall TECHNIQUE: 2 views of the hip were acquired. COMPARISON: None. FINDINGS: Bones: No dislocations. No suspicious bony lesions. The visualized pelvic ring appears intact. There is a intertrochanteric left hip fracture, without additional injury to the pelvis. The left symphysis pubis is seen and on and may be slightly distorted. Soft tissues: No suspicious soft tissue calcifications or masses. Impression: Acute intertrochanteric left hip fracture, possible fracture the symphysis pubis on the left. A pelvic CT appears scheduled and would more accurately assess the area of the symphysis pubis. IMPRESSION: Dictated by: Agapito Knutson M.D. on 05/23/2018 at 18:36 Approved by: Agapito Knutson M.D. on 05/23/2018 at 18:38 [facility] Narrative Medical decision making narrative: Imaging of the left hip shows an inner trochanter fracture to the left femur area. Discussed case with orthopedics Dr. Patino who consulted and will see patient tomorrow for surgery. Requested admission under medicine until then. She is admitted to inpatient services. Discussed case with BALTAZAR Altman who accepted patient. <Shahid Santos, DO - Last Filed: 05/24/18 00:49> Lab Data Lab Results 05/23/18 05/23/18 Range/Units 23:50 23:50 WBC 6.2 (4.5-11.0) X10^3/uL RBC 3.35 L (4.0-5.2) X10^6/uL Hgb 11.4 L (12.0-16.0) g/dL Hct 32.3 L (36-46) % MCV 96.3 (80-100) fL MCH 34.0 (26-34) PG MCHC 35.3 (30-36) % RDW 11.8 (11.6-14.8) % Plt Count 250 (150-400) X10^3/uL Neut % (Auto) 85.9 H (50-75) % Lymph % (Auto) 7.3 L (25-40) % Reynolds % (Auto) 6.3 (3-14) % Eos % (Auto) 0.1 L (2-4) % Baso % (Auto) 0.4 (0-2) % Neut # (Auto) 5300 (8371-2454) /uL Lymph # (Auto) 500 L (2815-5199) /uL Reynolds # (Auto) 400 (0-900) /uL Eos # (Auto) 0 (0-450) /uL Baso # (Auto) 0 (0-100) /uL Sodium 122 L (137-145) mmol/L Potassium 4.0 (3.4-5.1) mmol/L Chloride 88 L (98-107) mmol/L Carbon Dioxide 26 (22-32) mmol/L BUN 10 (7-17) mg/dL Creatinine 0.40 L (0.52-1.04) mg/dL Estimated GFR > 60.0 (>60) mL/min BUN/Creatinine Ratio 25.0 H (6-22) Glucose 139 H (80-110) mg/dL Calcium 8.9 (8.4-10.2) mg/dL Total Bilirubin 0.5 (0.2-1.3) mg/dL AST 27 (14-36) IU/L ALT 26 (9-52) IU/L Alkaline Phosphatase 66 (38-126) U/L Total Protein 7.0 (6.3-8.2) g/dL Albumin 4.2 (3.5-5.0) g/dL Globulin 2.8 (1.7-4.1) g/dL Albumin/Globulin Ratio 1.5 (1.0-2.8) Discharge Plan Departure Patient Disposition: Admitted As Inpatient Clinical Impression: Trochanteric fracture of left femur Qualifiers: Encounter type: initial encounter Fracture type: closed Qualified Code(s): S72.102A - Unspecified trochanteric fracture of left femur, initial encounter for closed fracture Discharge Date/Time: 05/23/18 21:45 Interventions: ED Discharge Assessment Last Done: 05/23/18 21:45 Referrals: Pamela Dennison MD [Primary Care Provider] - Admit Date/Time: 05/23/18 21:35 Admit Provider: Chadwick Altman
--- NOTE | 2018-05-23 19:32 | DI.RAD.S_ITS ---
PROCEDURE: XR FEMUR LT MIN 2V INDICATIONS: Pain to left femur ground after ground level fall TECHNIQUE: 3 views of the femur were acquired. COMPARISON: None. FINDINGS: Bones: No dislocations. No suspicious bony lesions. There is an intertrochanteric left hip fracture, and severe arthritis at the left knee but no fracture distally. Soft tissues: No suspicious soft tissue calcifications or masses. IMPRESSION: Acute intertrochanteric left hip fracture, severe osteoarthritis with [id number] articulation at the lateral compartment of the left knee. Dictated by: Agapito Knutson M.D. on 05/23/2018 at 20:26 Approved by: Agapito Knutson M.D. on 05/23/2018 at 20:27
[2018-05-23] MEDS: MORPHINE 5 MG/ML INJ 4 MG IV (19:40)
--- NOTE | 2018-05-23 20:35 | PC.NURSE ---
PT visitor at bedside out of room concerned about wait time and when pt is going to see a DR. [place]
[2018-05-23 20:51] VITALS: BP 149/94; PULSE 107; RESP 15; TEMP 36.4; O2SAT 95
--- NOTE | 2018-05-23 20:57 | PC.NURSE ---
2030 Pt visitor at bedside stepped out of room stating shes concerned that no Dr has been in room to see pt. AN update was explained that the pt primary provider today is BALTAZAR Valentin which has already been seeing pt. Pt then stated she concerned that he has not been in the room in quite some time and update was provided that not all radiology results have been received and is what he is waiting on to come in room to update pt. Aria Bertrand and Charge nurse aware of situation.
--- NOTE | 2018-05-23 21:36 | ED_ITS ---
HPI - Fall <BALTAZAR Barnhart - Last Filed: 05/23/18 22:04> General Chief Complaint: Fall Stated Complaint: GLF Time Seen by Provider: 05/23/18 17:49 Source: patient and EMS Mode of arrival: EMS Limitations: no limitations History of Present Illness HPI Narrative: 67-year-old female with history of hypertension and is a nonsmoker here for complaint of pain into her left hip. She had a ground level fall where she tripped over 1 of her rugs landing on her left hip area. She states that the pain is limited to her left hip/left upper leg area. She denies any head injury. She denies any abdominal pain. No other concerns or complaints at this timeframe. She is brought in by ambulance due to increased pain with ambulation. She has difficulty ambulating due to discomfort. MD complaint: fall Related Data Home Medications Medication Instructions Recorded Confirmed carbamazepine 400 mg PO Q12H #0 09/24/16 05/23/18 irbesartan 150 mg PO DAILY 05/03/18 05/23/18 Previous Rx's Medication Instructions Recorded hydrocodone-acetaminophen [[place]] 1 tab PO Q4-6H PRN #10 tab 04/07/18 Allergies Allergy/AdvReac Type Severity Reaction Status Date / Time clindamycin [CLINDAMYCIN] Allergy Unknown Gastrointestinal Verified 05/23/18 17:51 Upset, colitis cyclobenzaprine Allergy Unknown Unknown Verified 05/23/18 17:51 [CYCLOBENZAPRINE] iodine [IODINE] Allergy Unknown Hives Verified 05/23/18 17:51 Penicillins [PENICILLINS] Allergy Unknown Hives Verified 05/23/18 17:51 phenytoin [PHENYTOIN] Allergy Unknown Seizure Verified 05/23/18 17:51 Review of Systems <BALTAZAR Barnhart - Last Filed: 05/23/18 22:04> Constitutional Denies chills, Denies fever(s), Denies lethargy and Denies weakness Eyes Denies change in vision, Denies eye discharge, Denies irritation and Denies loss of vision ENT Ears, Nose, Mouth, and Throat: Denies change in voice, Denies neck pain and Denies sore throat Cardiovascular Denies chest pain, Denies irregular heart rhythm, Denies lightheadedness, Denies palpitations, Denies dyspnea, Denies dyspnea on exertion and Denies orthopnea Respiratory Denies cough, Denies dyspnea, Denies dyspnea on exertion and Denies wheezing Gastrointestinal Gastrointestinal: Denies abdominal pain, Denies change in bowel habits, Denies diarrhea, Denies nausea and Denies vomiting Genitourinary Denies hematuria, Denies flank pain, Denies urinary incontinence and Denies u rinary urgency Musculoskeletal Denies neck pain Comments: Pain to left hip area after fall Integumentary/Breasts Denies pruritus, Denies erythema, Denies rash and Denies wounds Neurologic Denies loss of vision and Denies weakness Endocrine Denies palpitations Hematologic/Lymphatic Denies easy bruising Allergic/Immunologic Denies wheezing Exam <BALATZAR Barnhart - Last Filed: 05/23/18 22:04> Initial Vital Signs Initial Vital Signs: Vital Signs Temperature 98.4 F 05/23/18 17:47 Pulse Rate 112 H 05/23/18 17:47 Respiratory Rate 16 05/23/18 17:47 Blood Pressure 182/110 H 05/23/18 17:47 Pulse Oximetry 98 05/23/18 17:47 Const General: cooperative and well developed Nutritional Appearance: well nourished Orientation: alert, awake, oriented x3 and not confused HENAK Mouth: oral mucosae normal and moist mucous membranes Eyes Conjunctivae: conjunctivae normal Sclera: sclerae normal Pupils: PERRL EOM: EOM intact bilaterally Resp Effort & Inspection: normal respiratory effort, able to speak in complete sentences, no respiratory distress and no use of accessory muscles Auscultation: clear to auscultation bilaterally, no rales, no rhonchi and no wheezes Cardio Rate: regular rate Rhythm: regular rhythm Heart Sounds: no click, no gallops, no murmurs and no rubs Pulses: normal peripheral pulses Skin General: no rashes or lesions noted, No jaundice and No petechiae Neuro General: alert, oriented x3, gait normal and no focal motor deficits Speech: speech normal Extrem Other: Left hip with no significant signs of trauma. No ecchymosis. No deformities. No erythema. No open lesions. Distal sensation is intact. Distal range of motion is intact. Distal pulses are intact. <Shahid Santos DO - Last Filed: 05/24/18 00:49> Initial Vital Signs Initial Vital Signs: Vital Signs Temperature 98.4 F 05/23/18 17:47 Pulse Rate 112 H 05/23/18 17:47 Respiratory Rate 16 05/23/18 17:47 Blood Pressure 182/110 H 05/23/18 17:47 Pulse Oximetry 98 05/23/18 17:47 PFSH <BALTAZAR Barnhart - Last Filed: 05/23/18 22:04> Medical History History of patellar fracture (Acute) History of pelvic fracture (Acute) History of wrist fracture (Acute) Osteoporosis with pathological fracture of multiple sites (Acute) Former smoker (Acute) HTN (hypertension) (Acute) Epilepsy (Chronic) Osteoporosis (Chronic) Surgical History H/O decompression of ulnar nerve (Acute) History of carpal tunnel release (Acute) Status post decompression of ulnar nerve (Resolved) Family History Other No pertinent family history in first degree relatives Social History household members: none Smoking Status: Former smoker alcohol intake: current Family History Mother Congestive heart failure Hypertension Father Congestive heart failure Sister Hypertension Scoliosis Other No pertinent family history in first degree relatives Social History household members: none Smoking Status: Former smoker alcohol intake: current Course <BALTAZAR Barnhart - Last Filed: 05/23/18 22:04> Orders Ordered: ED Orders 05/23/18 17:49 XR hip w pel if done LT 2V Stat 05/23/18 18:11 CT pelvis wo con Stat 05/23/18 19:32 XR femur LT min 2V Stat 05/23/18 23:20 Consult to Discharge Planning Routine Consult to Occupational Therapy Evaluate & Treat Consult to Physical Therapy Evaluate & Treat Consult to Physician Routine 05/23/18 23:50 Carbamazepine Tegretol Level Urgent Complete Blood Count AUTO DIFF Urgent Comprehensive Metabolic Panel Urgent 05/24/18 Basic Metabolic Panel Routine Complete Blood Count AUTO DIFF Routine Partial Thromboplastin Time Routine Prothrombin Time INR Routine Acetaminophen (Tylenol) 650 mg PO Q6HR PRN PRN Reason: As Needed for Fever/Mild Pain Bisacodyl (Dulcolax) 10 mg PO DAILY PRN PRN Reason: Constipation Carbamazepine (Tegretol Xr) 400 mg PO Q12H [facility] Last Admin: 05/24/18 00:34 Dose: Not Given Sodium Chloride (Normal Saline 0.9%) 1,000 mls @ 100 mls/hr IV CONT [facility] Last Admin: 05/24/18 00:33 Dose: 100 mls/hr Irbesartan (Avapro) 150 mg PO DAILY [facility] Morphine Sulfate (Morphine) 2 mg IV Q4HR PRN PRN Reason: Pain, Moderate (4-6) Morphine Sulfate (Morphine) 4 mg IV Q4HR PRN PRN Reason: Pain, Severe (7-10) Last Admin: 05/24/18 00:33 Dose: 4 mg Ondansetron HCl (Zofran) 4 mg IV Q8HR PRN PRN Reason: Nausea And Vomiting Pantoprazole Sodium (Protonix) 20 mg PO 0600 [facility] Last Admin: 05/24/18 00:36 Dose: Not Given Discontinued Medications Carbamazepine (Tegretol) 400 mg PO NOW ONE Stop: 05/23/18 21:18 Last Admin: 05/23/18 21:47 Dose: 400 mg Sodium Chloride (Normal Saline 0.9%) 1,000 mls @ 1,000 mls/hr IV BOLUS ONE Stop: 05/23/18 22:30 Last Admin: 05/23/18 21:40 Dose: 1,000 mls/hr Morphine Sulfate (Morphine) 2 mg IV NOW ONE Stop: 05/23/18 17:50 Last Admin: 05/23/18 18:08 Dose: 2 mg Morphine Sulfate (Morphine Sulfate) 4 mg IV NOW ONE Stop: 05/23/18 19:33 Last Admin: 05/23/18 19:40 Dose: 4 mg Vital Signs - 8 hr 05/23/18 17:47 05/23/18 18:53 05/23/18 20:51 Temperature 98.4 F 97.5 F L Pulse Rate 112 H 114 H 107 H Respiratory Rate 16 18 15 Blood Pressure 182/110 H Blood Pressure [Right Arm] 172/101 H 149/94 H Pulse Oximetry 98 98 95 05/23/18 21:50 05/24/18 00:00 Temperature 98.5 F 98.3 F Pulse Rate 113 H 106 H Respiratory Rate 18 18 Blood Pressure 157/99 H 153/84 H Blood Pressure [Right Arm] Pulse Oximetry 97 <Shahid Santos, DO - Last Filed: 05/24/18 00:49> Orders Ordered: ED Orders 05/23/18 17:49 XR hip w pel if done LT 2V Stat 05/23/18 18:11 CT pelvis wo con Stat 05/23/18 19:32 XR femur LT min 2V Stat 05/23/18 23:20 Consult to Discharge Planning Routine Consult to Occupational Therapy Evaluate & Treat Consult to Physical Therapy Evaluate & Treat Consult to Physician Routine 05/23/18 23:50 Carbamazepine Tegretol Level Urgent Complete Blood Count AUTO DIFF Urgent Comprehensive Metabolic Panel Urgent 05/24/18 Basic Metabolic Panel Routine Complete Blood Count AUTO DIFF Routine Partial Thromboplastin Time Routine Prothrombin Time INR Routine Acetaminophen (Tylenol) 650 mg PO Q6HR PRN PRN Reason: As Needed for Fever/Mild Pain Bisacodyl (Dulcolax) 10 mg PO DAILY PRN PRN Reason: Constipation Carbamazepine (Tegretol Xr) 400 mg PO Q12H [facility] Last Admin: 05/24/18 00:34 Dose: Not Given Sodium Chloride (Normal Saline 0.9%) 1,000 mls @ 100 mls/hr IV CONT [facility] Last Admin: 05/24/18 00:33 Dose: 100 mls/hr Irbesartan (Avapro) 150 mg PO DAILY [facility] Morphine Sulfate (Morphine) 2 mg IV Q4HR PRN PRN Reason: Pain, Moderate (4-6) Morphine Sulfate (Morphine) 4 mg IV Q4HR PRN PRN Reason: Pain, Severe (7-10) Last Admin: 05/24/18 00:33 Dose: 4 mg Ondansetron HCl (Zofran) 4 mg IV Q8HR PRN PRN Reason: Nausea And Vomiting Pantoprazole Sodium (Protonix) 20 mg PO 0600 [facility] Last Admin: 05/24/18 00:36 Dose: Not Given Discontinued Medications Carbamazepine (Tegretol) 400 mg PO NOW ONE Stop: 05/23/18 21:18 Last Admin: 05/23/18 21:47 Dose: 400 mg Sodium Chloride (Normal Saline 0.9%) 1,000 mls @ 1,000 mls/hr IV BOLUS ONE Stop: 05/23/18 22:30 Last Admin: 05/23/18 21:40 Dose: 1,000 mls/hr Morphine Sulfate (Morphine) 2 mg IV NOW ONE Stop: 05/23/18 17:50 Last Admin: 05/23/18 18:08 Dose: 2 mg Morphine Sulfate (Morphine Sulfate) 4 mg IV NOW ONE Stop: 05/23/18 19:33 Last Admin: 05/23/18 19:40 Dose: 4 mg Vital Signs - 8 hr 05/23/18 17:47 05/23/18 18:53 05/23/18 20:51 Temperature 98.4 F 97.5 F L Pulse Rate 112 H 114 H 107 H Respiratory Rate 16 18 15 Blood Pressure 182/110 H Blood Pressure [Right Arm] 172/101 H 149/94 H Pulse Oximetry 98 98 95 05/23/18 21:50 05/24/18 00:00 Temperature 98.5 F 98.3 F Pulse Rate 113 H 106 H Respiratory Rate 18 18 Blood Pressure 157/99 H 153/84 H Blood Pressure [Right Arm] Pulse Oximetry 97 MDM - Fall <BALTAZAR Barnhart - Last Filed: 05/23/18 22:04> Lab Data Result diagrams: 05/23/18 23:50 05/23/18 23:50 Lab Results 05/23/18 05/23/18 Range/Units 23:50 23:50 WBC 6.2 (4.5-11.0) X10^3/uL RBC 3.35 L (4.0-5.2) X10^6/uL Hgb 11.4 L (12.0-16.0) g/dL Hct 32.3 L (36-46) % MCV 96.3 (80-100) fL MCH 34.0 (26-34) PG MCHC 35.3 (30-36) % RDW 11.8 (11.6-14.8) % Plt Count 250 (150-400) X10^3/uL Neut % (Auto) 85.9 H (50-75) % Lymph % (Auto) 7.3 L (25-40) % [place] % (Auto) 6.3 (3-14) % Eos % (Auto) 0.1 L (2-4) % Baso % (Auto) 0.4 (0-2) % Neut # (Auto) 5300 (4218-6881) /uL Lymph # (Auto) 500 L (0934-2673) /uL [place] # (Auto) 400 (0-900) /uL Eos # (Auto) 0 (0-450) /uL Baso # (Auto) 0 (0-100) /uL Sodium 122 L (137-145) mmol/L Potassium 4.0 (3.4-5.1) mmol/L Chloride 88 L (98-107) mmol/L Carbon Dioxide 26 (22-32) mmol/L BUN 10 (7-17) mg/dL Creatinine 0.40 L (0.52-1.04) mg/dL Estimated GFR > 60.0 (>60) mL/min BUN/Creatinine Ratio 25.0 H (6-22) Glucose 139 H (80-110) mg/dL Calcium 8.9 (8.4-10.2) mg/dL Total Bilirubin 0.5 (0.2-1.3) mg/dL AST 27 (14-36) IU/L ALT 26 (9-52) IU/L Alkaline Phosphatase 66 (38-126) U/L Total Protein 7.0 (6.3-8.2) g/dL Albumin 4.2 (3.5-5.0) g/dL Globulin 2.8 (1.7-4.1) g/dL Albumin/Globulin Ratio 1.5 (1.0-2.8) Imaging Data Femur x-ray : Radiologist's impression: [address] [address] XRay Report Signed Patient: Luz Koch EMR#: [id number] : 3Acct:[id number] Age/Sex: 67 / FDate of Service: 05/23/18 Loc: ED Accession Number: [id number] Procedure: XR femur LT min 2V Ordering Provider: Librado Knapp PROCEDURE: XR FEMUR LT MIN 2V INDICATIONS: Pain to left femur ground after ground level fall TECHNIQUE: 3 views of the femur were acquired. COMPARISON: None. FINDINGS: Bones: No dislocations. No suspicious bony lesions. There is an intertrochanteric left hip fracture, and severe arthritis at the left knee but no fracture distally. Soft tissues: No suspicious soft tissue calcifications or masses. IMPRESSION: Acute intertrochanteric left hip fracture, severe osteoarthritis with [id number] articulation at the lateral compartment of the left knee. Dictated by: Agapito Knutson M.D. on 05/23/2018 at 20:26 Approved by: Agapito Knutson M.D. on 05/23/2018 at 20:27 CT hip and pelvis : Radiologist's impression: [address] [address] [address] Scan Report Signed Patient: Luz Koch EMR#: [id number] : 3Acct:[id number] Age/Sex: 67 / FDate of Service: 05/23/18 Loc: ED Accession Number: [id number] Procedure: CT pelvis wo con Ordering Provider: Nola Dobbs D.O. PROCEDURE: CT PEL WO CON INDICATIONS: fracture left hip and pelvis TECHNIQUE: Noncontrast 3 mm axial sections acquired through the bony pelvis, with coronal and sagittal reformatting. COMPARISON: [facility], , L-SPINE 2-3 VIEWS, 09/01/2010, 15:51. FINDINGS: Image quality: Excellent. Bones: Definite acute intertrochanteric left hip fracture, angulated and mildly impacted. There is a distortion of the symphysis pubis on the left, and in this clinical circumstance it may reflect acute trauma but also could represent sequela of old fracture. Soft tissues: No hematoma found. IMPRESSION: Acute intertrochanteric left hip fracture. Possible acute versus subacute or chronic left symphysis pubis fracture-please correlate clinically. A point tenderness is currently present exactly at that site acute fracture would be presumed. Please note that MR scanning can easily differentiate between chronic versus acute injuries of the osseous structures of the pelvis. Dictated by: Agapito Knutson M.D. on 05/23/2018 at 18:58 Approved by: Agapito Knutson M.D. on 05/23/2018 at 19:00 Hip x-ray : Radiologist's impression: [address] [address] XRay Report Signed Patient: Luz Koch EMR#: [id number] : 3Acct:[id number] Age/Sex: 67 / FDate of Service: 03/28/19 Loc: ED Accession Number: [id number] Procedure: XR hip w pel if done LT 2V Ordering Provider: Nola Dobbs D.O. PROCEDURE: XR HIP W PEL IF DONE LT 2V INDICATIONS: pain fall TECHNIQUE: 2 views of the hip were acquired. COMPARISON: None. FINDINGS: Bones: No dislocations. No suspicious bony lesions. The visualized pelvic ring appears intact. There is a intertrochanteric left hip fracture, without additional injury to the pelvis. The left symphysis pubis is seen and on and may be slightly distorted. Soft tissues: No suspicious soft tissue calcifications or masses. Impression: Acute intertrochanteric left hip fracture, possible fracture the symphysis pubis on the left. A pelvic CT appears scheduled and would more accurately assess the area of the symphysis pubis. IMPRESSION: Dictated by: Agapito Knutson M.D. on 05/23/2018 at 18:36 Approved by: Agapito Knutson M.D. on 05/23/2018 at 18:38 [facility] Narrative Medical decision making narrative: Imaging of the left hip shows an inner trochanter fracture to the left femur area. Discussed case with orthopedics Dr. Patino who consulted and will see patient tomorrow for surgery. Requested admission under medicine until then. She is admitted to inpatient services. Discussed case with BALTAZAR lAtman who accepted patient. <Shahid Santos, - Last Filed: 05/24/18 00:49> Lab Data Lab Results 05/23/18 05/23/18 Range/Units 23:50 23:50 WBC 6.2 (4.5-11.0) X10^3/uL RBC 3.35 L (4.0-5.2) X10^6/uL Hgb 11.4 L (12.0-16.0) g/dL Hct 32.3 L (36-46) % MCV 96.3 (80-100) fL MCH 34.0 (26-34) PG MCHC 35.3 (30-36) % RDW 11.8 (11.6-14.8) % Plt Count 250 (150-400) X10^3/uL Neut % (Auto) 85.9 H (50-75) % Lymph % (Auto) 7.3 L (25-40) % [place] % (Auto) 6.3 (3-14) % Eos % (Auto) 0.1 L (2-4) % Baso % (Auto) 0.4 (0-2) % Neut # (Auto) 5300 (3359-3958) /uL Lymph # (Auto) 500 L (3903-5426) /uL [place] # (Auto) 400 (0-900) /uL Eos # (Auto) 0 (0-450) /uL Baso # (Auto) 0 (0-100) /uL Sodium 122 L (137-145) mmol/L Potassium 4.0 (3.4-5.1) mmol/L Chloride 88 L (98-107) mmol/L Carbon Dioxide 26 (22-32) mmol/L BUN 10 (7-17) mg/dL Creatinine 0.40 L (0.52-1.04) mg/dL Estimated GFR > 60.0 (>60) mL/min BUN/Creatinine Ratio 25.0 H (6-22) Glucose 139 H (80-110) mg/dL Calcium 8.9 (8.4-10.2) mg/dL Total Bilirubin 0.5 (0.2-1.3) mg/dL AST 27 (14-36) IU/L ALT 26 (9-52) IU/L Alkaline Phosphatase 66 (38-126) U/L Total Protein 7.0 (6.3-8.2) g/dL Albumin 4.2 (3.5-5.0) g/dL Globulin 2.8 (1.7-4.1) g/dL Albumin/Globulin Ratio 1.5 (1.0-2.8) Discharge Plan Departure Patient Disposition: Admitted As Inpatient Clinical Impression: Trochanteric fracture of left femur Qualifiers: Encounter type: initial encounter Fracture type: closed Qualified Code(s): S72.102A - Unspecified trochanteric fracture of left femur, initial encounter for closed fracture Discharge Date/Time: 05/23/18 21:45 Interventions: ED Discharge Assessment Last Done: 05/23/18 21:45 Referrals: Pamela Dennison MD [Primary Care Provider] - Admit Date/Time: 05/23/18 21:35 Admit Provider: Chadwick Altman
[2018-05-23] MEDS: SODIUM CHLORIDE 0.9% 1,000 ML 1000 ML IV (21:40)
[2018-05-23] MEDS: carBAMazepine 200 MG TABLET 400 MG PO (21:47)
[2018-05-23 21:50] VITALS: BP 157/99; PULSE 113; RESP 18; TEMP 36.9
[2018-05-23 21:57] VITALS: BMI 19.5
--- NOTE | 2018-05-23 22:26 | P.CONS_ITS ---
History of Present Illness Date Patient Seen: 05/23/18 Time Patient Seen: 21:02 Chief complaint: GLF Reason for consult: Left hip fracture Requesting provider: Barbara Dennis Narrative: This is an unfortunate 67-year-old female with a history of severe osteoporosis with a history of multiple fractures. She recently sustained a left distal radius fracture which was treated by Dr. Alicea. She also has a history of left patella fracture treated by Dr. Marie. She has known osteoporosis and did have treatment with Fosamax in the past. She also has a history of spine to multiple spontaneous pelvic fractures. she fell today and noted the acute onset of left hip pain and was transported to [facility] for evaluation. she is accompanied by supportive neighbor. She is . [facility] Medical History Former smoker (Acute) HTN (hypertension) (Acute) Epilepsy (Chronic) Osteoporosis (Chronic) Surgical History History of carpal tunnel release (Acute) Status post decompression of ulnar nerve (Resolved) Family History Other No pertinent family history in first degree relatives Social History household members: none Smoking Status: Former smoker alcohol intake: current Family History Other No pertinent family history in first degree relatives Social History household members: none Smoking Status: Former smoker alcohol intake: current Meds Home Medications Medication Instructions Recorded Confirmed Type carbamazepine 400 mg PO Q12H #0 09/24/16 05/23/18 History hydrocodone-acetaminophen [[place]] 1 tab PO Q4-6H PRN #10 tab 04/07/18 05/23/18 Rx irbesartan 150 mg PO DAILY 05/03/18 05/03/18 History Allergies Allergy/AdvReac Type Severity Reaction Status Date / Time clindamycin [CLINDAMYCIN] Allergy Unknown Gastrointestinal Verified 05/23/18 17:51 Upset, colitis cyclobenzaprine Allergy Unknown Unknown Verified 05/23/18 17:51 [CYCLOBENZAPRINE] iodine [IODINE] Allergy Unknown Hives Verified 05/23/18 17:51 Penicillins [PENICILLINS] Allergy Unknown Hives Verified 05/23/18 17:51 phenytoin [PHENYTOIN] Allergy Unknown Seizure Verified 05/23/18 17:51 Review of Systems Review of Systems She has a known seizure disorder but she was not lightheaded or short of breath prior to her fall. She has had a seizure disorder for about 30 years but notes that it is well controlled and she has not had a recent seizure. She denies a history of recent chest pain headaches heart palpitations respiratory problems or GI problems. 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 She is not currently on Fosamax but she has been in the past. Exam Vital Signs (past 8 hours): - 05/23/18 17:47 05/23/18 18:53 05/23/18 20:51 Temperature 98.4 F 97.5 F L Pulse Rate 112 H 114 H 107 H Respiratory Rate 16 18 15 Blood Pressure 182/110 H Blood Pressure [Right Arm] 172/101 H 149/94 H Pulse Oximetry 98 98 95 Oxygen Delivery Method Room Air Narrative Exam Narrative: HEENT is benign, she is alert she is oriented her heads atraumatic her neck is supple her lungs are clear cor regular rate and rhythm abdomen soft and benign her left upper extremity is remarkable for a left wrist brace which is in place on their some slight swelling in the fingers it is not severe she has good range of motion into her left shoulder and elbow. Her left lower extremity is remarkable for obvious shortening of the left hip with some 80 duction of the leg she is able to fire her toe flexors and extensors and has a warm foot with palpable dorsalis pedis and posterior tibial pulses. She has dense numbness in bilateral lower extremities in a stocking distribution. Assessment & Plan Assessment & Plan narrative: Her x-rays show a left intertrochanteric hip fracture with significant deformity. I reviewed her left femur films her AP pelvis and lateral of the left hip as well as her CT scan and I had an extensive discussion with the patient. Her fracture pattern is intertrochanteric with some extension below the level of the greater trochanter. I think she is best treated with open reduction internal fixation with a cephalomedullary nail. I did consider the possibility of cemented hemiarthroplasty but she has comminution of her trochanter with minimal extension into the subtrochanteric region.
--- NOTE | 2018-05-23 22:52 | PC.NURSE ---
Pt arrived from the ER @ 2595. Awake, alert/oriented. Had a fall at home and admitted w/FX left hip. Pt states that six weeks ago she fell on the ice and Fx left wrist Had surgery on that wrist two weeks ago. IV infusing @ 21cc/hr ruma BALDWIN see. Call light w/in reach. bed alarm on for pt safety. Awaiting orders
[2018-05-24] VITALS (16 sets, daily range): BP systolic 101–172; BP diastolic 62–97; PULSE 82–106; RESP 12–24; TEMP 36.2–37.1; O2SAT 94–100
--- NOTE | 2018-05-24 | DI.RAD.S_ITS ---
PROCEDURE: XR HIP W PEL IF DONE LT 2V INDICATIONS: POST OPERATIVE LEFT HIP ORIF TECHNIQUE: AP pelvis with lateral view(s) of the left hip(s). COMPARISON: [facility], [place], XR HIP W PEL IF DONE LT 2V, 05/24/2018, 20:16. FINDINGS: Patient is immediate postop period is expected appearance post ORIF of a trochanteric fracture of the left hip. Overall alignment is near anatomic. There is no evidence of hardware failure or loosening. IMPRESSION: Expected immediate postoperative appearance, status post ORIF of a trochanteric fracture. Dictated by: Chase Sifuentes M.D. on 05/25/2018 at 9:12 Approved by: Chase Sifuentes M.D. on 05/25/2018 at 9:13
--- NOTE | 2018-05-24 | DI.RAD.S_ITS ---
PROCEDURE: XR HIP W PEL IF DONE LT 2V INDICATIONS: LEFT HIP FRACTURE TECHNIQUE: 3 operative views of the hip were acquired. COMPARISON: [facility], [place], XR HIP W PEL IF DONE LT 2V, 05/23/2018, 17:52. FINDINGS: 3 fluoroscopic images demonstrate performance of ORIF of a trochanteric fracture. There is no radiographic evidence of complications. IMPRESSION: Performance of ORIF of a trochanter fracture of the left hip. Dictated by: Chase Sifuentes M.D. on 05/25/2018 at 9:10 Approved by: Chase Sifuentes M.D. on 05/25/2018 at 9:11
[2018-05-24 00:04] LABS: Add Manual Diff / Slide Review NO; Basophils Absolute Auto 0 /uL (0-100); Basophils Percent Auto 0.4 % (0-2); Eosinophils Absolute Auto 0 /uL (0-450); Eosinophils Percent Auto 0.1 % (2-4); Hematocrit 32.3 % (36-46); Hemoglobin 11.4 g/dL (12.0-16.0); Lymphocytes Absolute Auto 500 /uL (1100-4500); Lymphocytes Percent Auto 7.3 % (25-40); Mean Corpuscular HGB Conc 35.3 % (30-36); Mean Corpuscular Volume 96.3 fL (80-100); Monocytes Absolute Auto 400 /uL (0-900); Monocytes Percent Auto 6.3 % (3-14); Neutrophils Absolute Auto 5300 /uL (1500-7000); Neutrophils Percent Auto 85.9 % (50-75); Platelet Count 250 X10^3/uL (150-400); Red Blood Cell Count 3.35 X10^6/uL (4.0-5.2); Red Cell Distribution Width 11.8 % (11.6-14.8); White Blood Cell Count 6.2 X10^3/uL (4.5-11.0)
[2018-05-24 00:17] LABS: Alanine Aminotransferase 26 IU/L (9-52); Albumin 4.2 g/dL (3.5-5.0); Albumin Globulin Ratio 1.5 (1.0-2.8); Alkaline Phosphatase 66 U/L (38-126); Aspartate Aminotransferase 27 IU/L (14-36); Bilirubin Total 0.5 mg/dL (0.2-1.3); Blood Urea Nitrogen 10 mg/dL (7-17); Calcium 8.9 mg/dL (8.4-10.2); Carbon Dioxide 26 mmol/L (22-32); Chloride 88 mmol/L (98-107); Estimated Glomerular Filt Rate > 60.0 mL/min (>60); Globulin 2.8 g/dL (1.7-4.1); Glucose 139 mg/dL (80-110); HEMOLYSIS < 15 (0-50); Sodium 122 mmol/L (137-145)
[2018-05-24] MEDS: MORPHINE 4 MG/ML INJ IV ×4 (00:33→16:48)
[2018-05-24] MEDS: SODIUM CHLORIDE 0.9% 1,000 ML 100 ML IV ×3 (00:33→19:07)
--- NOTE | 2018-05-24 00:53 | P.HP_ITS ---
History of Present Illness Date Patient Seen: 05/23/18 Time Patient Seen: 23:30 Chief complaint: GLF Narrative: This is a 67-year-old female patient with a history of severe osteoporosis, epilepsy and hypertension who presents to the ER today with left hip pain. the patient reports that her shoes were rubbing on her feet so she changed to flip flops and subsequently tripped on a rug sustaining a ground level fall onto her left hip. She had immediate pain and was nonambulatory following the event. She has sharp left hip pain with movement and dull aching at rest with shortening and external rotation. She also reports left knee pain on the lateral aspect. She denies striking her head, loss of consciousness, neck or back pain. the patient has sustained multiple pathological fractures including left wrist and stress fractures the pelvis and a patellar fracture. She does endorse a history of seizures for which she is taking carbamazepine. Her last seizure was 8 years ago which occurred related to an interaction with medication which dropped her Tegretol level. The patient reports no recent illness including fevers or chills, head congestion or sore throat. She has had no shortness of breath or cough. She denies chest pain or abdominal pain. She has no nausea vomiting, constipation or diarrhea. Imaging in the ER demonstrates a displaced intertrochanteric fracture of left hip. Chest x-ray was completed which shows normal cardiac silhouette but demonstrates in terstitial prominence but no mention of pulmonary vascular congestion or edema. No labs are drawn. Patient History Medical History History of patellar fracture (Acute) History of pelvic fracture (Acute) History of wrist fracture (Acute) Osteoporosis with pathological fracture of multiple sites (Acute) Former smoker (Acute) HTN (hypertension) (Acute) Epilepsy (Chronic) Osteoporosis (Chronic) Surgical History H/O decompression of ulnar nerve (Acute) History of carpal tunnel release (Acute) Status post decompression of ulnar nerve (Resolved) Family History Other No pertinent family history in first degree relatives Social History household members: none Smoking Status: Former smoker alcohol intake: current Family & Social History Family History Mother Congestive heart failure Hypertension Father Congestive heart failure Sister Hypertension Scoliosis Other No pertinent family history in first degree relatives Social History: household members none Prior Living Arrangements House Safety & Behavioral: Feels Safe in Current Yes Environment Been Physically Hurt or No Threatened By a Person Suicidal Ideation Description None Suicide Plan Description No Plan Tobacco & Substance use: Smoking Status Former smoker alcohol intake current alcohol intake frequency 0-2 drinks per day Substance Use Type does not use Comment: The patient lives alone in a single family home which is multilevel. Her parents are both with the father been having histor of cardiac disease and congestive heart failure and her mother hypertension and congestive heart failure. She has an older sister with scoliosis and hypertension. Smoking: Patient reports smoking 1 pack per day for 5 years when she was in her 20s Alcohol: Patient reports drinking a glass of wine most days Substance use: Patient denies recreation pharmaceuticals, herbal or cannabis products Advanced directives: Patient wishes to be a full code and designates her friend Jessy Galeano to be her surrogate decision maker. Meds Home Medications Medication Instructions Recorded Confirmed Type carbamazepine 400 mg PO Q12H #0 09/24/16 05/23/18 History hydrocodone-acetaminophen [[place]] 1 tab PO Q4-6H PRN #10 tab 04/07/18 05/23/18 Rx irbesartan 150 mg PO DAILY 05/03/18 05/23/18 History Allergies Allergy/AdvReac Type Severity Reaction Status Date / Time clindamycin [CLINDAMYCIN] Allergy Unknown Gastrointestinal Verified 05/23/18 17:51 Upset, colitis cyclobenzaprine Allergy Unknown Unknown Verified 05/23/18 17:51 [CYCLOBENZAPRINE] iodine [IODINE] Allergy Unknown Hives Verified 05/23/18 17:51 Penicillins [PENICILLINS] Allergy Unknown Hives Verified 05/23/18 17:51 phenytoin [PHENYTOIN] Allergy Unknown Seizure Verified 05/23/18 17:51 Review of Systems Review of Systems All systems reviewed & are unremarkable except as noted in HPI and below Exam Vital Signs (past 8 hours): - 05/23/18 17:47 05/23/18 18:53 05/23/18 20:51 Temperature 98.4 F 97.5 F L Pulse Rate 112 H 114 H 107 H Respiratory Rate 16 18 15 Blood Pressure 182/110 H Blood Pressure [Right Arm] 172/101 H 149/94 H Pulse Oximetry 98 98 95 05/23/18 21:50 Temperature 98.5 F Pulse Rate 113 H Respiratory Rate 18 Blood Pressure 157/99 H Blood Pressure [Right Arm] Pulse Oximetry Oxygen Delivery Method Room Air Narrative Exam Narrative: GENERAL APPEARANCE: well developed, slender, well nourished, BMI of 19.6, laying semi recumbent in moderate pain HEAD: Normocephalic, atraumatic, no scalp lesions. EYES: Wears contacts or glasses, pupils equal, round, reactive to light and accommodation, sclera non-icteric, extraocular movement intact . EARS: normal external structures, no ear pain NOSE: sinuses non tender to percussion, no rhinorrhea ORAL CAVITY: mucosa moist without lesions or exudate, palate normal, tongue in midline. THROAT: normal, no erythema, no exudate, pharynx normal, uvula midline. Twelve lead EKG, personally reviewed: Sinus tachycardia with ventricular rate of 106, no evidence of [place] or ischemia, no ectopy or block noted. prn full is 142 milliseconds, QRS interval is 80 milliseconds, QTC is 382 milliseconds. NECK/THYROID: neck supple, no jugular venous distention, no carotid bruit, no thyromegaly, trachea midline. LYMPH NODES: no cervical or supraclavicular lymphadenopathy. SKIN: warm and dry, no suspicious lesions, no rashes, good turgor. HEART: Slightly tachycardic rate with regular rhythm, S1-S2 without murmur, rubs, gallops, brisk capillary refill, no edema LUNGS: clear to auscultation bilaterally, no coarseness crackles or wheezing, no cough present CHEST: Symmetrical movement, no accessory muscle use, no pain to AP and lateral compression. ABDOMEN: Soft, no distention, no epigastric or abdominal tenderness on palpation, no guarding or peritoneal signs, no organomegaly, no flank or suprapubic tenderness BACK: nontender to palpation EXTREMITIES: Pain over left greater trochanter without evidence of bruising, mild effusion left knee with pain on palpation of the lateral joint line, patient unable to move the left leg related pain, right leg strength is 5/5, bilateral lower extremities are well perfused. NEUROLOGIC: AAO x4, no focal neurologic deficits, cranial nerves II-XII grossly intact , patient with slight numbness and tingling bilateral feet. PSYCH: alert, cognitive function intact, good eye contact, stable mood with congruent affect Objective Labs Result Diagrams: 05/23/18 23:50 05/23/18 23:50 Labs: Laboratory Results - last 24 hr 05/23/18 05/23/18 23:50 23:50 WBC 6.2 RBC 3.35 L Hgb 11.4 L Hct 32.3 L MCV 96.3 MCH 34.0 MCHC 35.3 RDW 11.8 Plt Count 250 Neut % (Auto) 85.9 H Lymph % (Auto) 7.3 L [place] % (Auto) 6.3 Eos % (Auto) 0.1 L Baso % (Auto) 0.4 Neut # (Auto) 5300 Lymph # (Auto) 500 L [place] # (Auto) 400 Eos # (Auto) 0 Baso # (Auto) 0 Sodium 122 L Potassium 4.0 Chloride 88 L Carbon Dioxide 26 BUN 10 Creatinine 0.40 L Estimated GFR > 60.0 BUN/Creatinine Ratio 25.0 H Glucose 139 H Calcium 8.9 Total Bilirubin 0.5 AST 27 ALT 26 Alkaline Phosphatase 66 Total Protein 7.0 Albumin 4.2 Globulin 2.8 Albumin/Globulin Ratio 1.5 Assessment & Plan Assessment & Plan narrative: 1. Pathological fracture left hip related to osteoporosis, acute -patient with intertrochanteric fracture left hip -Dr. Patino has been consulted was planning to take the patient to surgery tomorrow. -pain is managed with morphine 2-4 mg every 4 hours as needed -no labs were completed in the ER, CBC and CMP are ordered now with BMP and repeat CBC in the morning -will also obtain preoperative PT PTT and 12 lead EKG as noted above 2. Severe osteoporosis, chronic -patient with multiple pathological fractures including wrist patella and pelvis -Patient previously on Fosamax for 13 years which was discontinued 3 years ago for lack of improvement -patient takes calcium and vitamin-D supplementation -patient would be a likely candidate for Denosumab therapy 3. Epilepsy, chronic -seizure disorder has been well controlled on carbamazepine 400 mg twice daily -last seizure was 8 years ago triggered by medication interaction reducing her Tegretol level 4. Essential hypertension, chronic -patient with elevated blood pressure 182/110 upon arrival to the ER improved to 150 7/90 upon arrival to the floor both likely elevated in pain response -patient reports blood pressures been adequately controlled with irbesartan 150 mg daily which will be continued
--- NOTE | 2018-05-24 02:02 | PC.NURSE ---
Attempted to place jacobo with 2 RN's [address] due to anatomy. Provider notified. Pt agreeable to bedpan use.
[2018-05-24 06:09] LABS: WBC Urine None Seen (0-5/HPF)
[2018-05-24 06:18] LABS: Add Manual Diff / Slide Review NO; Basophils Absolute Auto 0 /uL (0-100); Basophils Percent Auto 0.7 % (0-2); Eosinophils Absolute Auto 0 /uL (0-450); Eosinophils Percent Auto 0.3 % (2-4); Hematocrit 32.5 % (36-46); Hemoglobin 11.2 g/dL (12.0-16.0); Lymphocytes Absolute Auto 1200 /uL (1100-4500); Lymphocytes Percent Auto 26.5 % (25-40); Mean Corpuscular HGB Conc 34.5 % (30-36); Mean Corpuscular Hemoglobin 33.7 PG (26-34); Mean Corpuscular Volume 97.6 fL (80-100); Monocytes Absolute Auto 500 /uL (0-900); Monocytes Percent Auto 11.7 % (3-14); Neutrophils Absolute Auto 2700 /uL (1500-7000); Neutrophils Percent Auto 60.8 % (50-75); Platelet Count 245 X10^3/uL (150-400); Red Blood Cell Count 3.32 X10^6/uL (4.0-5.2); Red Cell Distribution Width 12.2 % (11.6-14.8); White Blood Cell Count 4.4 X10^3/uL (4.5-11.0)
[2018-05-24 06:21] LABS: Prothrombin Time 11.1 SECONDS (10.1-12.7)
[2018-05-24 06:24] LABS: PTT Partial Thromboplastin Tim 33 SECONDS (26.4-36.2)
[2018-05-24 06:29] LABS: Blood Urea Nitrogen 8 mg/dL (7-17); Calcium 8.9 mg/dL (8.4-10.2); Carbon Dioxide 27 mmol/L (22-32); Chloride 92 mmol/L (98-107); Estimated Glomerular Filt Rate > 60.0 mL/min (>60); Glucose 119 mg/dL (80-110); HEMOLYSIS < 15 (0-50); Potassium 4.5 mmol/L (3.4-5.1); Sodium 126 mmol/L (137-145)
[2018-05-24] MEDS: MORPHINE 2 MG/ML INJ IV ×2 (06:46→14:42)
[2018-05-24 07:28] LABS: Appearance Urine UA CLEAR; Bilirubin Urine UA NEGATIVE (NEGATIVE); Color Urine UA YELLOW; Glucose Urine UA NEGATIVE (Negative); Ketones Urine UA 1+ (NEGATIVE); Leukocyte Esterase Urine UA NEGATIVE (NEGATIVE); Nitrite Urine UA NEGATIVE (Negative); Occult Blood Urine UA TRACE-INTACT (Negative); Protein Urine UA NEGATIVE (Negative); Urobilinogen Urine UA 0.2 E.U./dL (0.2); pH Urine UA 6.5 (4.5-8.0)
[2018-05-24 07:52] LABS: RBC Urine 0-1/HPF (0-5/HPF)
[2018-05-24 07:53] LABS: Bacteria Urine Occasional (0-1); Culture Indicated Urine Cult Not Indicated
--- NOTE | 2018-05-24 09:00 | PT.IPTN ---
Surgery Performed Operation Date: 05/24/18 16:00 <No data on this case meets the specified criteria> Physical Therapy Treatment Note M3 PT-IP Subjective Start: 05/24/18 12:25 Freq: NEEDED Status: Active Protocol: Document 05/24/18 09:00 DLM (Rec: 05/24/18 12:27 DLM [id number]) Subjective Physical Therapy Visit Type Type Patient Unavailable Notes Physical Therapy order received and chart reviewed. Noted the plan is for surgery today for left hip fracture. Will hold physical therapy evaluation until after surgery
[2018-05-24] MEDS: carBAMazepine XR 100 MG TAB 400 MG PO ×3 (09:02→20:35)
[2018-05-24 09:31] LABS: Other Crystals Urine Other Crystals:
--- NOTE | 2018-05-24 09:55 | OT.IP.TRT ---
Surgery Performed Operation Date: 05/24/18 16:00 <No data on this case meets the specified criteria> Occupational Therapy Treatment Note M3 OT- IP Subjective and Pain Start: 05/24/18 09:52 Freq: Status: Active Protocol: Document 05/24/18 09:52 CGR (Rec: 05/24/18 09:55 CGR [id number]) OT- Subjective Occupational Therapy Visit Type Notes Chart reviewed, pt planned for ORIF on 05/24 after GLF with acute L hip intertorchanteric fx. Will hold and continue to follow s/p sx.
--- NOTE | 2018-05-24 12:20 | CM.DPC ---
DCP Cont: Faxed referral to [facility], Attn: Kaylie at fax # [phone]. Fax confirmation scanned in. Rhonda Talbot, [employer]
--- NOTE | 2018-05-24 14:53 | PC.NURSE ---
SHIFT SUMMARY: PATIENT PLEASANT AND COOPERATIVE. MORPHINE IVP PRN FOR PAIN. TOLERATES WELL. CONTINUES TO PREFER BEDPAN OVER RE-ATTEMPT AT [place] INSERTION. VOIDING WELL. VSS, SAT UPPER 90'S RA ALL SHIFT. CLARIFIED PO MEDS TO GIVE VS HOLD W/ DR. BIANCHI THIS AM. IRBESARTAN HELD, TEGRATOL GIVEN. NPO SINCE MN.
--- NOTE | 2018-05-24 15:03 | CM.DPNOTE ---
Reviewed chart and spoke w/ Ortho EMMA Bergeron this morning; Pt is going to the OR this afternoon for repair of a hip fx sustained after GLF. Pt just had wrist fx repair two weeks ago and cannot bear weight on left wrist. Pt will need SNF and is agreeable. Reviewed DCP options w/pt this morning; provided Medicare SNF choice list. Pt requests [facility] as first SNF choice at this time. Referral faxed to [facility] by BHARTI Ellis Specialist, Kaylie has accepted for admission after 3 nights in the hospital. Following closely. Will plan to update pt Sunday. ENDY Angel
--- NOTE | 2018-05-24 19:26 | P.OP_ITS ---
Operative Date/Time/Diagnoses Date of procedure: 05/24/18 Time of procedure: 19:51 Pre-op diagnosis: left intertrochanteric fracture Post-op diagnosis: same Procedure & Clinicians Procedure: im nail left intertroch Same procedure as scheduled: Yes Indications: This 67-year-old female with known severe severe osteoporosis who fell and sustained a left hip fracture. she is brought to the operating room for repair is indicated. Surgeon: Gabby Patino Click Yes if Unassisted: Yes Anesthesia Type: General and Spinal Operative Notes Findings: Soft bone, good reduction, some comminution. Closure Type: primary Specimen(s): none sent Prosthetic devices, grafts, tissues, transplants, or devices: neil natural nail 11.5 Applied: implant(s) Estimated Blood Loss (mL): 200 Blood products transfused: none Procedure in detail: Patient brought to the operating room. She underwent induction of anesthesia. She was carefully transferred to the [place] fracture table and meticulously position. a time-out was performed confirming the left hip. She was given IV antibiotics. Her left lower extremities prepped draped standard sterile fashion. her fracture was meticulously reduced by combination of longitudinal traction as well as reduction maneuver to realign the proximal femur. the reduction was confirmed with fluoroscopic image AP and lateral. a lateral skin incision was made dissection was carried out through skin and subcutaneous tissues. fascia was incised. A pin was placed in the greater trochanter. It was advanced down into the greater trochanter. The proximal trochanter was reamed and then a guidewire was placed into the canal. hemostasis was achieved with Bovie cautery. The canal was reamed up to a 13 mm. A short neil natural nail was inserted. a guide pin was then placed in the center of the femoral head close to the articular surface. It was carefully measured and reamed. The screw was inserted without difficulty and compression was carefully performed in order to compact the fracture. the locking screw was then placed into the nail to allow sliding but not rotation. the guide was used to drill across the femur and 2 locking screws were placed. Final images confirmed acceptable reduction and position of the hardware. the wounds were meticulously irrigated with normal saline. Marcaine and Exparel were injected. Fascia was closed with interrupted Vicryl. skin was closed with skin chuy. The wound was dressed sterilely. Complications: none Condition: stable Disposition: Acute Care Plan for aftercare: OOB with therapy. partial weight bearing left lower extremity. D/C to SNF when stable.
--- NOTE | 2018-05-24 19:28 | PM.PN.1 ---
Subjective Date Patient Seen: 05/24/18 Interval history: Delightful female with a history of osteoporosis, multiple fractures here following a GLF with a Left Intertrochanteric Fracture. Patient notes morphine controlling her pain well. She denies shortness of breath or diarrhea. Of note she was previously on fosamax but discontinued after several additional fractures. Patient has plans to follow up with Endocrinology as an outpatient for evaluation and definitive treatment of her osteoporosis. She is awaiting surgical repair. Exam Vital Signs (past 8 hours): - 05/24/18 15:00 05/24/18 15:10 Temperature 98.8 F Pulse Rate 89 Respiratory Rate 16 Blood Pressure 135/80 Pulse Oximetry 99 99 Oxygen Delivery Method Room Air Oxygen Flow Rate 0 Narrative Exam Narrative: Pleasant female Lungs: clear to auscultation CV; RRR nl Sl S2 Abd: soft/ non tender/ non distended Ext: Left leg internally rotated and shorter than right, no edema Objective Labs Result Diagrams: 05/24/18 06:01 05/24/18 06:01 Labs: Laboratory Results - last 24 hr 05/23/18 05/23/18 05/24/18 23:50 23:50 06:00 WBC 6.2 RBC 3.35 L Hgb 11.4 L Hct 32.3 L MCV 96.3 MCH 34.0 MCHC 35.3 RDW 11.8 Plt Count 250 Neut % (Auto) 85.9 H Lymph % (Auto) 7.3 L [place] % (Auto) 6.3 Eos % (Auto) 0.1 L Baso % (Auto) 0.4 Neut # (Auto) 5300 Lymph # (Auto) 500 L [place] # (Auto) 400 Eos # (Auto) 0 Baso # (Auto) 0 PT INR APTT Sodium 122 L Potassium 4.0 Chloride 88 L Carbon Dioxide 26 BUN 10 Creatinine 0.40 L Estimated GFR > 60.0 BUN/Creatinine Ratio 25.0 H Glucose 139 H Calcium 8.9 Total Bilirubin 0.5 AST 27 ALT 26 Alkaline Phosphatase 66 Total Protein 7.0 Albumin 4.2 Globulin 2.8 Albumin/Globulin Ratio 1.5 Urine Color Yellow Urine Appearance Clear Urine pH 6.5 Ur Specific [place] 1.010 Urine Protein Negative Urine Glucose (UA) Negative Urine Ketones 1+ H Urine Occult Blood Trace-intact Urine Nitrate Negative Urine Bilirubin Negative Urine Urobilinogen 0.2 Ur Leukocyte Esterase Negative Urine RBC 0-1/hpf Urine WBC None seen Other Crystals Other crystals: Urine Bacteria Occasional (0-1) Ur Culture Indicated? Cult not indicated 05/24/18 05/24/18 05/24/18 06:01 06:01 06:01 WBC 4.4 L RBC 3.32 L Hgb 11.2 L Hct 32.5 L MCV 97.6 MCH 33.7 MCHC 34.5 RDW 12.2 Plt Count 245 Neut % (Auto) 60.8 D Lymph % (Auto) 26.5 [place] % (Auto) 11.7 Eos % (Auto) 0.3 L Baso % (Auto) 0.7 Neut # (Auto) 2700 Lymph # (Auto) 1200 [place] # (Auto) 500 Eos # (Auto) 0 Baso # (Auto) 0 PT 11.1 INR 1.0 APTT 33 Sodium 126 L Potassium 4.5 Chloride 92 L Carbon Dioxide 27 BUN 8 Creatinine 0.40 L Estimated GFR > 60.0 BUN/Creatinine Ratio 20.0 Glucose 119 H Calcium 8.9 Total Bilirubin AST ALT Alkaline Phosphatase Total Protein Albumin Globulin Albumin/Globulin Ratio Urine Color Urine Appearance Urine pH Ur Specific [place] Urine Protein Urine Glucose (UA) Urine Ketones Urine Occult Blood Urine Nitrate Urine Bilirubin Urine Urobilinogen Ur Leukocyte Esterase Urine RBC Urine WBC Other Crystals Urine Bacteria Ur Culture Indicated? Assessment & Plan (1) Trochanteric fracture of left femur: Problem details: Acute intertrochanteric fracture following GLF, secondary to osteoporosis, present on admission Anticipate definitive surgical repair tonight Qualifiers: Encounter type: initial encounter Fracture healing: Fracture type: closed Open fracture type: Qualified Code(s): S72.102A - Unspecified trochanteric fracture of left femur, initial encounter for closed fracture Current visit: Yes Status: Acute (2) Osteoporosis: Problem details: patient will continue VIt D/Calcium. She needs to start a bisphosphonate as well. Patient to follow up as an outpatient for further evaluation Present, on admission Current visit: Yes Status: Acute (3) Seizure disorder: Problem details: continue tegretol Current visit: Yes Status: Acute (4) Hypertension: Problem details: Chronic, will hold her irbesartan pending surgery and resume tomorrow Current visit: Yes Status: Acute (5) Hyponatremia: Problem details: Hyponatremia, acute, present on admission Will correct with fluids, consider fluid restriction postoperatively if still present Current visit: Yes Status: Acute
[2018-05-24] MEDS: ONDANSETRON 4 MG/2 ML INJ IV (20:37)
[2018-05-24] MEDS: LACTATED RINGERS 1,000 ML 42 ML IV ×2 (20:38→22:55)
[2018-05-24] MEDS: CEFAZOLIN 2 GM/100 ML FROZ.PIGGY IV (20:49)
--- NOTE | 2018-05-24 21:30 | PC.NURSE ---
Evening Shift Note Pt A&O, VSS, pt complaining of pain and nausea. This RN attempted to give pt Morphine and Zofran for nausea and pain around 2044. Pt also requesting to take her home Tegretol. At this moment RN from surgery arrived to floor to medicinal plant picker pt. Asked RN if okay to give pain and nausea and medication. Unable to give pt pain medication d/t possibility of consent for surgery changing and pt needing to revise and again sign consent. Pain medication open and wasted w/ RN on floor. Zofran given to surgery RN to give to pt but not scanned on APR. Pt Tegretol accidently scanned but not given. This RN attempted to undo unscheduled administration of med on APR but administration visible on APR. Tegretol given to surgery RN to give prior to surgery. RN from surgery administered medication to pt and also experiencing same situation on APR. called and expressed it as an IT issue not a pharmacy issue. Pt left to OR w/o questions or concerns.
--- NOTE | 2018-05-24 21:34 | SUR.OPER ---
Head on pillow. Supine on fracture table with bilateral legs secured in traction. Arms across chest, secured with sheet.
[2018-05-24] MEDS: BUPIVACAINE 0.5% W/ EPI (PF) VIAL 30 ML INJ (22:25)
--- NOTE | 2018-05-24 23:43 | SUR.HOLD ---
2031 400mg po tegretol given as scheduled order- unable to document this in the EMR.
--- NOTE | 2018-05-24 23:44 | SUR.PHASEI ---
pt transferred to room, no c/o pain or nausea, IV saline locked, left hip dressing remains dry and intact, foot warm with palpable pedal pulses. bedside report and hand off of care to INDERJIT Fletcher.
[2018-05-25] VITALS (9 sets, daily range): BP systolic 100–159; BP diastolic 52–90; PULSE 86–102; RESP 16–18; TEMP 36.6–37.4; O2SAT 95–100
[2018-05-25] MEDS: ASPIRIN EC 81 MG TABLET PO ×3 (00:30→20:16)
[2018-05-25] MEDS: DOCUSATE 100 MG CAPSULE PO ×3 (00:30→20:16)
[2018-05-25] MEDS: LACTATED RINGERS 1,000 ML 125 ML IV (00:30)
--- NOTE | 2018-05-25 01:05 | PC.NURSE ---
2335-Pt. came back from PACU awake, alert & denies any pain. LLE still numb & RLE also numb, baseline BLE neuropathy. Denies any pain & 1 liter of SPO2 98-100%. Turned of oxygen RA sat. 95-97%. Will cont. POC & monitor.
[2018-05-25] MEDS: ACETAMINOPHEN 325 MG TABLET 650 MG PO (04:50)
--- NOTE | 2018-05-25 05:10 | PC.NURSE ---
Voided 300 cc using the bed gil, bladder scanned 106 cc noted. C/O pain when moving to used the bed gil medicated with 650 mg. of Tylenol. Tried to give her Percocet, but she changed her mind & declined narcotic. Will cont. POC & monitor.
[2018-05-25] MEDS: PANTOPRAZOLE 20 MG TABLET PO ×2 (05:39→09:47)
[2018-05-25] MEDS: CEFAZOLIN 1 GM/50 ML FROZ.PIGGY IV (05:39)
[2018-05-25 05:45] LABS: Add Manual Diff / Slide Review NO; Basophils Absolute Auto 0 /uL (0-100); Basophils Percent Auto 0.5 % (0-2); Eosinophils Absolute Auto 0 /uL (0-450); Eosinophils Percent Auto 0.9 % (2-4); Hematocrit 27.3 % (36-46); Hemoglobin 9.3 g/dL (12.0-16.0); Lymphocytes Absolute Auto 900 /uL (1100-4500); Mean Corpuscular Hemoglobin 33.4 PG (26-34); Mean Corpuscular Volume 98.2 fL (80-100); Monocytes Absolute Auto 500 /uL (0-900); Monocytes Percent Auto 11.6 % (3-14); Neutrophils Absolute Auto 3200 /uL (1500-7000); Platelet Count 182 X10^3/uL (150-400); Red Blood Cell Count 2.79 X10^6/uL (4.0-5.2); Red Cell Distribution Width 11.7 % (11.6-14.8); White Blood Cell Count 4.7 X10^3/uL (4.5-11.0)
[2018-05-25 06:11] LABS: Blood Urea Nitrogen 4 mg/dL (7-17); Calcium 8.4 mg/dL (8.4-10.2); Carbon Dioxide 27 mmol/L (22-32); Chloride 95 mmol/L (98-107); Estimated Glomerular Filt Rate > 60.0 mL/min (>60); Glucose 106 mg/dL (80-110); HEMOLYSIS < 15 (0-50); Potassium 4.2 mmol/L (3.4-5.1); Sodium 128 mmol/L (137-145)
--- NOTE | 2018-05-25 06:49 | PC.NURSE ---
0539 Cefazolin 1 gm. was scanned but it not registered in the E-MAR. It was documented in the medication review will report to day INDERJIT.
--- NOTE | 2018-05-25 06:52 | P.PN_ITS ---
Subjective Date Patient Seen: 05/25/18 Interval history: Luz Koch is a 67-year-old female with a past medical history significant for severe osteoporosis, epilepsy and hypertension who presented for left hip pain after ground level fall and admitted for left hip fracture now status post ORIF. The patient is standing at bedside with physical therapy. She denies significant pain. Her pain is well controlled on narcotics. She denies headache, cough, shortness of breath, chest pain, abdominal pain, nausea, vomiting, fever, chills, dysuria, diarrhea or constipation. She is voiding without difficulty. She has not yet had a bowel movement since admission. She is up ambulating with assistance and PT. Exam Vital Signs (past 8 hours): - 05/24/18 22:53 05/24/18 22:58 05/24/18 23:03 Temperature 97.2 F L Pulse Rate 84 87 92 H Respiratory Rate 12 15 12 Blood Pressure 113/73 121/73 132/79 Pulse Oximetry 94 94 98 05/24/18 23:08 05/24/18 23:17 05/24/18 23:35 Temperature 98.4 F Pulse Rate 82 83 86 Respiratory Rate 15 12 16 Blood Pressure 129/83 141/87 H 162/97 H Pulse Oximetry 94 96 99 05/25/18 00:05 05/25/18 00:35 05/25/18 01:45 Temperature 98.4 F 98.4 F 99.3 F Pulse Rate 86 97 H 102 H Respiratory Rate 16 16 16 Blood Pressure 159/89 H 151/90 H 119/67 Pulse Oximetry 100 97 95 05/25/18 03:00 Temperature 99.3 F Pulse Rate 97 H Respiratory Rate 16 Blood Pressure 143/84 H Pulse Oximetry 100 Oxygen Delivery Method Nasal Cannula Oxygen Flow Rate 1 Narrative Exam Narrative: General: Older female standing in room and in no acute distress, well- developed, well-nourished, appropriately interactive. HEENT: Normocephalic, atraumatic. External ears without defect. Pupils equal, round, and reactive to light. Anicteric sclerae, moist conjunctivae, and no lid lag. Neck: Supple with full range of motion. No lymphadenopathy or thyromegaly. Cardiovascular: Regular rhythm, mild tachycardia, without murmurs, rubs, or gallops appreciated. Pulmonary: Clear to auscultation bilaterally without crackles, wheezes, or rhonchi. Normal respiratory effort with no use of accessory muscles. Abdomen: Soft, bowel sounds present, nontender, nondistended. No hepatosplenomegaly or masses appreciated. Extremities: No clubbing, cyanosis, or edema. Left hip with dressing in place C/D/I. Skin: Normal temperature, turgor, and texture; no rash, ulcers, or subcutaneous nodules appreciated. Neurological: Cranial nerves grossly intact. Psychiatric: Normal mood and affect. Alert and oriented to person, place, and time. Objective Labs Result Diagrams: 05/25/18 05:02 05/25/18 05:02 Labs: Laboratory Results - last 24 hr 05/24/18 05/25/18 05/25/18 06:00 05:02 05:02 WBC 4.7 RBC 2.79 L Hgb 9.3 L Hct 27.3 L MCV 98.2 MCH 33.4 MCHC 34.0 RDW 11.7 Plt Count 182 Neut % (Auto) 68.0 Lymph % (Auto) 19.0 L [place] % (Auto) 11.6 Eos % (Auto) 0.9 L Baso % (Auto) 0.5 Neut # (Auto) 3200 Lymph # (Auto) 900 L [place] # (Auto) 500 Eos # (Auto) 0 Baso # (Auto) 0 Sodium 128 L Potassium 4.2 Chloride 95 L Carbon Dioxide 27 BUN 4 L Creatinine 0.40 L Estimated GFR > 60.0 BUN/Creatinine Ratio 10.0 Glucose 106 Calcium 8.4 Urine Color Yellow Urine Appearance Clear Urine pH 6.5 Ur Specific [place] 1.010 Urine Protein Negative Urine Glucose (UA) Negative Urine Ketones 1+ H Urine Occult Blood Trace-intact Urine Nitrate Negative Urine Bilirubin Negative Urine Urobilinogen 0.2 Ur Leukocyte Esterase Negative Urine RBC 0-1/hpf Urine WBC None seen Other Crystals Other crystals: Urine Bacteria Occasional (0-1) Ur Culture Indicated? Cult not indicated Assessment & Plan Assessment & Plan narrative: Luz Koch is a 67-year-old female with a past medical history significant for severe osteoporosis, epilepsy and hypertension who presented for left hip pain after ground level fall and admitted for left hip fracture now status post ORIF. 1. Acute pathological fracture of left hip status post ORIF, secondary to osteoporosis, present on admission. Active. -Patient with intertrochanteric fracture left hip after GLF. -Dr. Patino has been consulted and we appreciate her time and care of the patient. Now status post ORIF. Continue postoperative pain and management per Ortho. -Continue PT and OT. 2. Severe osteoporosis, chronic, present on admission. Active. -Likely secondary to chronic antiepileptic therapy. -Patient with multiple pathological fractures including wrist, patella and pelvis. Patient previously on Fosamax for 13 years which was discontinued 3 years ago for lack of improvement. Patient takes calcium and vitamin-D supplementation -Patient is a candidate for Prolia or Forteo outpatient. 3. Epilepsy, chronic, present on admission. Stable. -Seizure disorder has been well controlled on carbamazepine 400 mg twice daily which is continued. -Last seizure was 8 years ago triggered by medication interaction reducing her Tegretol level. 4. Hypertension, chronic, present on admission. Stable. -Patient with hypertension with BP 182/110 secondary to pain response. -Continue irbesartan 150 mg daily. Disposition: Patient likely to discharge to group home facility once we have placement.
[2018-05-25] MEDS: IRBESARTAN 150 MG TABLET PO (09:47)
[2018-05-25] MEDS: carBAMazepine XR 100 MG TAB 400 MG PO ×2 (09:48→18:59)
[2018-05-25] MEDS: HYDROCODONE/ACET 5/325 TABLET 1 TAB PO ×4 (10:08→20:00)
--- NOTE | 2018-05-25 10:59 | P.PN_ITS ---
Subjective Date Patient Seen: 05/25/18 Time Patient Seen: 10:55 Interval history: Pain mild to moderate depend on activity level. Left knee soreness. No fever chills. No nausea vomiting. Otherwise without complaints. Exam Vital Signs (past 8 hours): - 05/25/18 03:00 05/25/18 08:00 Temperature 99.3 F 97.8 F Pulse Rate 97 H 100 H Respiratory Rate 16 18 Blood Pressure 143/84 H 112/52 L Pulse Oximetry 100 100 Oxygen Delivery Method Nasal Cannula Oxygen Flow Rate 1 Narrative Exam Narrative: Pleasant 67-year-old female sitting comfortably in bedside chair in no apparent distress. sensation is grossly intact distal left lower extremity. Motor functions intact distal left lower extremity. Left leg is warm and dry. the dressing is clean, dry and intact. mild generalized tenderness about the left knee. There may be a trace effusion. No erythema or ecchymosis noted. minimal pain with gentle range of motion. Objective Labs Result Diagrams: 05/25/18 05:02 05/25/18 05:02 Labs: Laboratory Results - last 24 hr 05/25/18 05/25/18 05:02 05:02 WBC 4.7 RBC 2.79 L Hgb 9.3 L Hct 27.3 L MCV 98.2 MCH 33.4 MCHC 34.0 RDW 11.7 Plt Count 182 Neut % (Auto) 68.0 Lymph % (Auto) 19.0 L [place] % (Auto) 11.6 Eos % (Auto) 0.9 L Baso % (Auto) 0.5 Neut # (Auto) 3200 Lymph # (Auto) 900 L [place] # (Auto) 500 Eos # (Auto) 0 Baso # (Auto) 0 Sodium 128 L Potassium 4.2 Chloride 95 L Carbon Dioxide 27 BUN 4 L Creatinine 0.40 L Estimated GFR > 60.0 BUN/Creatinine Ratio 10.0 Glucose 106 Calcium 8.4 PROCEDURE: XR FEMUR LT MIN 2V INDICATIONS: Pain to left femur ground after ground level fall TECHNIQUE: 3 views of the femur were acquired. COMPARISON: None. FINDINGS: Bones: No dislocations. No suspicious bony lesions. There is an intertrochanteric left hip fracture, and severe arthritis at the left knee but no fracture distally. Soft tissues: No suspicious soft tissue calcifications or masses. IMPRESSION: Acute intertrochanteric left hip fracture, severe osteoarthritis with boneon- bone articulation at the lateral compartment of the left knee. Assessment & Plan Post-op Postoperative Procedures Operation Date: 05/24/18 16:00 Actual Procedures Side Surgeon p ORIF Hip/Intramedullary Pako (proximal screws in head) Left Gabby Patino MD postop day 1 status post IM nail left intertrochanteric fracture. mobilize with physical therapy. Partial weight-bearing left lower extremity. Discharge to group home facility when medically stable per hospitalist.
--- NOTE | 2018-05-25 11:01 | PT.IIE ---
Current Diagnoses Hypo-osmolality and hyponatremia (05/23/18) Epilepsy, unspecified, not intractable, without status epilepticus (05/23/18) Essential (primary) hypertension (05/23/18) Other osteoporosis with current pathological fracture, left femur, initial encounter for fracture (05/23/18) Age-related osteoporosis without current pathological fracture (05/23/18) Unspecified trochanteric fracture of left femur, initial encounter for closed fracture (05/23/18) Surgery Performed Operation Date: 05/24/18 16:00 Actual Procedures p ORIF Hip/Intramedullary Pako (proximal screws in head)(Left) - Gabby Patino MD Surgical History (Last Reviewed 05/24/18 @ 00:34 by BALTAZAR Vu) H/O decompression of ulnar nerve (Acute) History of carpal tunnel release (Acute) Status post decompression of ulnar nerve (Resolved) Medical History (Last Reviewed 05/24/18 @ 00:34 by BALTAZAR Vu) History of patellar fracture (Acute) History of pelvic fracture (Acute) History of wrist fracture (Acute) Osteoporosis with pathological fracture of multiple sites (Acute) Former smoker (Acute) HTN (hypertension) (Acute) Epilepsy (Chronic) Osteoporosis (Chronic) Physical Therapy Inpatient Evaluation/Re-Eval M1 PT/OT-IP Prior Functional Status Start: 05/24/18 12:25 Freq: NEEDED Status: Active Protocol: Document 05/25/18 11:01 DLM (Rec: 05/25/18 13:22 DLM [id number]) Medical Review Prior Functional Status Medical History Reviewed Yes Diet/Fluid Consistency Regular Communication WNL Mobility and Gait Independent without device, hx of falls, ambulates community distances Activities of Daily Living and IADL's Independent at baseline, some difficulty since left wrist fx 6 weeks ago due to immobilized, she is right hand dominant Prior Functional Level (Other details) she drives, active in community Social History Household Members none Living Arrangements House Number of Stairs To Enter/Railing? 7 down, one rail Home Equipment Four Wheel Walker Quad Cane Employment Status Retired Additional Social History Comment she has stairs in multiple locations at her house, 7 steps is the minimum for her to enter the house M2 PT-IP Current Condition Start: 05/24/18 12:25 Freq: NEEDED Status: Active Protocol: Document 05/25/18 11:01 DLM (Rec: 05/25/18 13:22 [facility] [id number]) Physical Therapy Current Condition Current Condition Evaluation Date 05/25/18 Treatment Diagnosis left hip ORIF 05/24/18, fall with fx, impaired gait Onset Date 05/23/18 Precautions Brace left wrist splinted, ORIF left wrist 05/03/18 Other Precautions Limited weight bearing left wrist due to ORIF but no specific orders seen in chart. Partial weight bearing left hip following sx with IM nail 05/24/18. Weight Bearing Status Weight Bearing Status Partial Weight Bearing M3 PT-IP Subjective Start: 05/24/18 12:25 Freq: NEEDED Status: Active Protocol: Document 05/25/18 11:01 DL (Rec: 05/25/18 13:22 [facility] [id number]) Subjective Physical Therapy Visit Type Type Initial Evaluation Visit Start Time 10:10 Visit Stop Time 11:01 Total Visit Minutes 51 Number of STEWARD/STEWARDESS Visits 0 Physical Therapy Visit Comments Patient Comments She plans to go to [facility] at discharge for SNF rehab Patient Goals get better Therapy Pain Assessment Pain When Pain Assessed After Treatment Pain Present Pain Present Pain Reported Location Left Hip Intensity 2 Scale Used Numeric (1 - 10) Description Aching Pain Behaviors Facial Grimacing Guarding Pain Management Techniques Apply Cold Re-positioning M4 PT-IP Mobility and Gait Start: 05/24/18 12:25 Freq: NEEDED Status: Active Protocol: Document 05/25/18 11:01 DLM (Rec: 05/25/18 13:22 [facility] [id number]) PT-Bed Mobility Assessment Supine to Sit Supine to Sit Minimal Assistance Sit to Supine Sit to Supine Minimal Assistance Scooting Scooting to Edge of Bed Contact Guard Assistance PT-Transfer Assessment Sit to and From Stand Sit to and from Stand Contact Guard Assistance Minimal Assistance Use of Upper Extremities Equipment Transfer Assistive Device Gait Belt Platform Walker Transfers Transfer Destination Chair Bedside Commode Transfer Technique Stand Step Pivot Transfer Ability Level of Assist Contact Guard Assistance Minimal Assistance Use of Upper Extremities Comments Mobility Comments pt up to bedside commode to urinate then got up to recliner, pt left up in recliner with her Sister visiting and her call light close Gait Assessment Gait Gait Assistance Required: Minimum Assistance Distance (Feet) 2 Able to Maintain Weight Bearing Status Yes During Gait Assistive Devices Assistive Device Gait Belt Platform Walker Gait Deviations General Gait Pattern Antalgic Flexed Trunk Factors Limiting Gait Function Factors Limiting Gait Function Decreased Activity Tolerance Decreased Strength Pain Comments Gait Comments platform set up in the left side of FWW to manage her left wrist Stair Climbing Assessment Comments Stair Climbing Comments pt unable today PT-Balance Assessment Sitting Balance and Reactions Static Sitting Balance Ability Good Dynamic Sitting Balance Ability Good Standing Balance and Reactions Static Standing Balance Ability Fair Dynamic Standing Balance Ability Fair Device Used Platform FWW M5 PT-IP Objective Assessments Start: 05/24/18 12:25 Freq: NEEDED Status: Active Protocol: Document 05/25/18 11:01 DL (Rec: 05/25/18 13:22 [facility] [id number]) Orientation Orientation/Cognition Level of Alertness Alert Orientation Name Age Birthday Month Date Year Day of Week Place Situation Language Function Ability No Deficits Noted Safety Awareness Understands Safety Issues Memory Description No Deficits Noted Gross Range of Motion Upper Extremity ROM Assessment Left Impaired Impairments left wrist splinted and not tested due to ORIF 05/03/18 Lower Extremity ROM Assessment Left Impaired Impairments pain in left hip and knee areas which limits her motion Strength Upper Extremity Strength Assessment Left Impaired Wrist not tested due to ORIF Hand not tested, moves fingers actively Lower Extremity Strength Assessment Left Impaired Hip needs assist to move LE with pain Knee ext 2+/5 Ankle DF 4-/5 Comments Strength Comments strength limited by post-op pain Coordination Assessment Gross Coordination Gross Coordination WNL Sensation Assessment Sensation Gross Sensation Right LE Impaired Left LE Impaired Sensation Description Numbness Comments Sensation Comments hx of numbness in feet due to neuropathy Muscle Tone Muscle Tone WNL Yes M6 PT-IP Treatment Start: 05/24/18 12:25 Freq: NEEDED Status: Active Protocol: Document 05/25/18 11:01 DL (Rec: 05/25/18 13:22 [facility] [id number]) Physical Therapy Treatment Exercises Exercises Ankle Pumps Education Education Provided Precautions Weight Bearing Status Safety M7 PT-IP Assessment and Plan Start: 05/24/18 12:25 Freq: NEEDED Status: Active Protocol: Document 05/25/18 11:01 DLM (Rec: 05/25/18 13:22 [facility] [id number]) PT Summary Assessment and Plan Potential Rehabilitation Potential Good Status of Condition at Evaluation Evolving Summary Impairments Pain ROM Strength Balance Bed Mobility Transfers Gait Activity Tolerance Goals Bed Mobility Goal Contact Guard Assistance Transfer Goal Contact Guard Assistance Front Wheeled Walker Gait Goal Contact Guard Assistance Minimal Assistance Front Wheel Walker Gait Distance 30 feet Other Goals All mobility with platform FWW with platform for left UE, partial weight bearing left LE for gait Days to Meet Goals 4 Frequency of Treatment Frequency Of Treatment Twice a Day Treatment Plan Physical Therapy Treatment Plan Bed Mobility Training Transfer Training Gait Training Therapeutic Exercise Post Op Education Discharge Planning Hot or Cold Pack Other Recommendations and Next Treatment monitor left knee, pt voiced Focus concerns she twisted left knee when she fell (PA is aware) Recommendations To Nursing Amount of Assist Needed 1 Person Assist Discharge Recommendations PT Discharge Recommendations SNF Rehab
--- NOTE | 2018-05-25 14:46 | PT.IPTN ---
Current Diagnoses Hypo-osmolality and hyponatremia (05/23/18) Epilepsy, unspecified, not intractable, without status epilepticus (05/23/18) Essential (primary) hypertension (05/23/18) Other osteoporosis with current pathological fracture, left femur, initial encounter for fracture (05/23/18) Age-related osteoporosis without current pathological fracture (05/23/18) Unspecified trochanteric fracture of left femur, initial encounter for closed fracture (05/23/18) Surgery Performed Operation Date: 05/24/18 16:00 Actual Procedures p ORIF Hip/Intramedullary Pako (proximal screws in head)(Left) - Gabby Patino MD Physical Therapy Treatment Note M2 PT-IP Current Condition Start: 05/24/18 12:25 Freq: NEEDED Status: Active Protocol: Document 05/25/18 11:01 DLM (Rec: 05/25/18 13:22 DLM [id number]) Physical Therapy Current Condition Current Condition Evaluation Date 05/25/18 Treatment Diagnosis left hip ORIF 05/24/18, fall with fx, impaired gait Onset Date 05/23/18 Precautions Brace left wrist splinted, ORIF left wrist 05/03/18 Other Precautions Limited weight bearing left wrist due to ORIF but no specific orders seen in chart. Partial weight bearing left hip following sx with IM nail 05/24/18. Weight Bearing Status Weight Bearing Status Partial Weight Bearing M3 PT-IP Subjective Start: 05/24/18 12:25 Freq: NEEDED Status: Active Protocol: Document 05/25/18 14:39 SA (Rec: 05/25/18 14:46 SA [id number]) Subjective Physical Therapy Visit Type Type Treatment Note Visit Start Time 13:50 Visit Stop Time 14:20 Total Visit Minutes 30 Number of PLUMBING FOREMAN Visits 1 Physical Therapy Visit Comments Patient Comments Pt reports her L knee is more painful than L hip right now, agreeable to work with PT. Patient Goals D/C to SNF prior to home. Therapy Pain Assessment Pain When Pain Assessed During Mobility Pain Present Pain Present Pain Reported Location Left Hip Intensity 2 Scale Used Numeric (1 - 10) Description Aching Pain Behaviors Facial Grimacing Guarding Pain Management Techniques Apply Cold Re-positioning M4 PT-IP Mobility and Gait Start: 05/24/18 12:25 Freq: NEEDED Status: Active Protocol: Document 05/25/18 14:39 SA (Rec: 03/30/19 14:46 [id number]) PT-Bed Mobility Assessment Sit to Supine Sit to Supine Minimal Assistance Scooting Scooting to Edge of Bed Standby Assistance Scooting Up and Down in Bed Standby Assistance PT-Transfer Assessment Sit to and From Stand Sit to and from Stand Contact Guard Assistance 1 Person Assistance Equipment Transfer Assistive Device Gait Belt Platform Walker Orthotic/Prosthetic Devices or Brace: No Transfers Transfer Destination Bed Toilet Transfer Technique Stand Step Pivot Transfer Ability Level of Assist Contact Guard Assistance 1 Person Assistance Comments Mobility Comments Stnd pivot txs to BSC and back to bed with PFW and CGA, slow gaurded movements. Sit to supine with Min A. Gait Assessment Gait Gait Assistance Required: Contact Guard Assist 1 Person Assist Distance (Feet) 30 Able to Maintain Weight Bearing Status Yes During Gait Assistive Devices Assistive Device Gait Belt Platform Walker Gait Deviations General Gait Pattern Antalgic Flexed Trunk Factors Limiting Gait Function Factors Limiting Gait Function Decreased Activity Tolerance Decreased Strength Pain Comments Gait Comments Gait training in room: around bed to BSC and window and back to bed with PFW and CGA. Pt able to maintain partial WBing status well with PFW. Stair Climbing Assessment Comments Stair Climbing Comments pt unable today PT-Balance Assessment Sitting Balance and Reactions Static Sitting Balance Ability Good Dynamic Sitting Balance Ability Good Standing Balance and Reactions Static Standing Balance Ability Fair Dynamic Standing Balance Ability Fair Device Used Platform FWW M5 PT-IP Objective Assessments Start: 05/24/18 12:25 Freq: NEEDED Status: Active Protocol: Document 05/25/18 11:01 DL (Rec: 05/25/18 13:22 DL [id number]) Orientation Orientation/Cognition Level of Alertness Alert Orientation Name Age Birthday Month Date Year Day of Week Place Situation Language Function Ability No Deficits Noted Safety Awareness Understands Safety Issues Memory Description No Deficits Noted Gross Range of Motion Upper Extremity ROM Assessment Left Impaired Impairments left wrist splinted and not tested due to ORIF 05/03/18 Lower Extremity ROM Assessment Left Impaired Impairments pain in left hip and knee areas which limits her motion Strength Upper Extremity Strength Assessment Left Impaired Wrist not tested due to ORIF Hand not tested, moves fingers actively Lower Extremity Strength Assessment Left Impaired Hip needs assist to move LE with pain Knee ext 2+/5 Ankle DF 4-/5 Comments Strength Comments strength limited by post-op pain Coordination Assessment Gross Coordination Gross Coordination WNL Sensation Assessment Sensation Gross Sensation Right LE Impaired Left LE Impaired Sensation Description Numbness Comments Sensation Comments hx of numbness in feet due to neuropathy Muscle Tone Muscle Tone WNL Yes M6 PT-IP Treatment Start: 05/24/18 12:25 Freq: NEEDED Status: Active Protocol: Document 05/25/18 14:39 SA (Rec: 05/25/18 14:46 [id number]) Physical Therapy Treatment Exercises Exercises Ankle Pumps Education Education Provided Precautions Weight Bearing Status Safety M7 PT-IP Assessment and Plan Start: 05/24/18 12:25 Freq: NEEDED Status: Active Protocol: Document 05/25/18 14:39 SA (Rec: 05/25/18 14:46 [id number]) PT Summary Assessment and Plan Summary Assessment Summary Pt with limited activity tolerance, partial WBing and wrist splint requiring use of platform walker. Would benefit from continued therapy at SNF prior to returning home to improve strength, balance and functional mobility as she lives alone. Frequency of Treatment Frequency Of Treatment Twice a Day Treatment Plan Physical Therapy Treatment Plan Bed Mobility Training Transfer Training Gait Training Therapeutic Exercise Post Op Education Discharge Planning Hot or Cold Pack Other Recommendations and Next Treatment monitor left knee, pt voiced Focus concerns she twisted left knee when she fell (PA is aware) Recommendations To Nursing Amount of Assist Needed 1 Person Assist Discharge Recommendations PT Discharge Recommendations SNF Rehab
--- NOTE | 2018-05-25 16:25 | OT.IP.EVAL ---
Current Diagnoses Hypo-osmolality and hyponatremia (05/23/18) Epilepsy, unspecified, not intractable, without status epilepticus (05/23/18) Essential (primary) hypertension (05/23/18) Other osteoporosis with current pathological fracture, left femur, initial encounter for fracture (05/23/18) Age-related osteoporosis without current pathological fracture (05/23/18) Unspecified trochanteric fracture of left femur, initial encounter for closed fracture (05/23/18) Surgery Performed Operation Date: 05/24/18 16:00 Actual Procedures p ORIF Hip/Intramedullary Pako (proximal screws in head)(Left) - Gabby Patino MD Past Medical History (Last Reviewed 05/24/18 @ 00:34 by BALTAZAR Vu) History of patellar fracture (Acute) History of pelvic fracture (Acute) History of wrist fracture (Acute) Osteoporosis with pathological fracture of multiple sites (Acute) Former smoker (Acute) HTN (hypertension) (Acute) Epilepsy (Chronic) Osteoporosis (Chronic) Surgical History (Last Reviewed 05/24/18 @ 00:34 by BALTAZAR Vu) H/O decompression of ulnar nerve (Acute) History of carpal tunnel release (Acute) Status post decompression of ulnar nerve (Resolved) Occupational Therapy Inpatient Evaluation/Re-Eval M1 PT/OT-IP Prior Functional Status Start: 05/24/18 12:25 Freq: NEEDED Status: Active Protocol: Document 05/25/18 16:16 CGR (Rec: 05/25/18 16:25 CGR [id number]) Medical Review Prior Functional Status Medical History Reviewed Yes Diet/Fluid Consistency Regular Communication WNL Mobility and Gait Independent without device, hx of falls, ambulates community distances Activities of Daily Living and IADL's Independent at baseline, some difficulty since left wrist fx 6 weeks ago due to immobilized, she is right hand dominant Prior Functional Level (Other details) she drives, active in community Social History Household Members none Living Arrangements House Number of Stairs To Enter/Railing? 7 down, one rail Home Environment Standard Height Toilet Walk in Shower Home Equipment Four Wheel Walker Quad Cane Raised Toilet Seat w/Armrests Employment Status Retired Additional Social History Comment she has stairs in multiple locations at her house, 7 steps is the minimum for her to enter the house M2 OT-IP Current Condition Start: 05/24/18 09:52 Freq: Status: Active Protocol: Document 05/25/18 16:16 CGR (Rec: 05/25/18 16:25 CGR [id number]) Occupational Therapy Current Condition Current Condition Evaluation Date 05/25/18 Treatment Diagnosis GLF with L hip fx. now s/p IM nailing to the L hip Diagnosis Onset Date sx performed 05/24 Weight Bearing Status Weight Bearing Status Partial Weight Bearing M3 OT- IP Subjective and Pain Start: 05/24/18 09:52 Freq: Status: Active Protocol: Document 05/25/18 16:16 CGR (Rec: 05/25/18 16:25 CGR [id number]) OT- Subjective Occupational Therapy Visit Type Type Initial Evaluation Visit Start Time 14:30 Visit Stop Time 15:18 Total Visit Minutes 48 Occupational Therapy Visit Comments Patient Comments Pt agreeable to OT services. OT Pain Assessment Pain When Pain Assessed At Rest Pain Present Pain Present Pain Reported Location Left Hip Intensity 2 Scale Used Numeric (1 - 10) Description Aching Pain Behaviors Guarding Management Techniques Re-positioning Timing of Activity with Medications M4 OT- IP ADL's Start: 05/24/18 09:52 Freq: Status: Active Protocol: Document 05/25/18 16:16 CGR (Rec: 05/25/18 16:25 CGR [id number]) OT JUD-Bzly-Abpwebm General Evaluation Self-Feeding Ability Independent OT ADL-Grooming General Evaluation Grooming Ability Standby Assistance Areas Needing Assistance Combing/Brushing Hair Face Washing Comments OT Grooming Comments Standing at sink OT ADL-Oral Care General Eval Oral Care Ability Standby Assistance Areas of Assistance Brushing Teeth Comments Oral Care Comments Standing at sink OT ADL-Dressing Comments OT Dressing Comments Not performed d/t increasing pain OT ADL-Toileting General Evaluation Toileting Ability Standby Assistance Devices Toileting Assistive Devices Commode M5 OT- IP IADL's Start: 05/24/18 09:52 Freq: Status: Active Protocol: Document 05/25/18 16:16 CGR (Rec: 05/25/18 16:25 CGR [id number]) OT-Instrumental Activities of Daily Living Home Safety Awareness Awareness of Need for Assistance at Home Good Awareness Ability to Problem Solve Emergency Able to Problem Solve Situations M6 OT- IP Functional Cognition Start: 05/24/18 09:52 Freq: Status: Active Protocol: Document 05/25/18 16:16 CGR (Rec: 05/25/18 16:25 CGR [id number]) Cognitive Factors Limiting Selfcare Function Cognitive Ability Level of Alertness Alert Patient Orientation Name Age Birthday Month Date Year Day of Week Place Situation Attention Span Ability Capable of Focused Attention Ability to Follow Commands Able to Follow Multi-Step Commands Memory Description No Deficits Noted Safety Awareness No Deficits Noted Problem Solving Ability No deficits Noted Executive Function Ability No Deficits Noted Abstract Thinking Ability No Deficits Noted OT- Vision and Hearing OT- Hearing Assessment OT- Hearing Assessment WFL OT- Vision Assessment Visual Acuity Glasses All The Time Contact Lenses Visual Attentiveness WFL Occular Pursuits WFL Visual Convergence WFL Visual Castellanos WFL Diplopia Absent Visual Spacial Neglect Not Applicable M7 OT- IP Mobility and Balance Start: 05/24/18 09:52 Freq: Status: Active Protocol: Document 05/25/18 16:16 CGR (Rec: 05/25/18 16:25 CGR [id number]) OT- Bed Mobility Assessment Supine to Sit Supine to Sit Assist Minimal Assistance Sit to Supine Sit to Supine Assist Minimal Assistance Scooting Scooting to Edge of Bed Minimal Assistance Scooting Up and Down in Bed Contact Guard Assistance OT-Transfer Assessment Sit to and From Stand Sit to and from Stand Contact Guard Assistance Transfers Transfer Ability Contact Guard Assistance Technique Transfer Destination Bed Bedside Commode Devices Transfer Assistive Devices Front Wheeled Walker Orthotic/Prosthetic Devices or Brace: No Comments Mobility Comments with platform for the E OT- Gait Assessment Gait Gait Assistance Required: Contact Guard Assist Assistive Devices Assistive Device Front Wheeled Walker Comments Gait Ability Comments with platform for E OT- Balance Assessment Sitting Balance and Reactions Static Sitting Balance Ability Normal Dynamic Sitting Balance Ability Normal Standing Balance and Reactions Static Standing Balance Ability Good Dynamic Standing Balance Ability Good M8 OT- IP Objective Assessments Start: 05/24/18 09:52 Freq: Status: Active Protocol: Document 05/25/18 16:16 CGR (Rec: 05/25/18 16:25 CGR [id number]) OT Gross Range of Motion Upper Extremity Range of Motion Assessment Within Functional Limits OT Strength Upper Extremity Strength Assessment Within Functional Limits Comments Strength Comments L hand and wrist strength not tested d/t recetn fx and sx. OT- Coordination Assessment Upper Extremity Finger to Nose Test Within Functional Limits Finger Tapping Test Within Functional Limits OT Sensation Assessment Comments Summary Comments WFL, notes numbness to radial nerve patern on L hand. Pt states this is fci. Edema Edema Present Edema Comments Noted to LLE and compression glove to the LUE to decrease swelling. 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
[2018-05-25] MEDS: SODIUM CHLORIDE 0.9% 1,000 ML 100 ML IV (17:30)
[2018-05-25] MEDS: MAGNESIUM HYDROXIDE 30 ML UDC PO (20:16)
--- NOTE | 2018-05-25 23:08 | PC.NURSE ---
Shift note: Luz resting in bed, requests staff to let me sleep after she took last dose of pain medication. She reports I feel really wiped out, up with PT/OT at 1530 but has requested to use bedpan since then and has not wanted to get OOB. Denies nausea, tolerating general diet. Left hip with bulky drsg CDI, CMS intact, tonight reporting increased pain to operative leg and requested to have that SCD off for a while. SCD removed. IVF changed to NS per new order by Dr Downey, IV flushing & infusing with no difficulty. Pt remains Ox3, using call button appropriately, now sleeping. Requesting to be woken up at midnight when next pain meds are due, pain mgmt teaching given. Alarm active for safety for high risk.
--- NOTE | 2018-05-26 | DI.RAD.S_ITS ---
PROCEDURE: XR KNEE LT 1TO2V INDICATIONS: GLF, large effusion, h/o patella fx TECHNIQUE: The 2 views of the knee were acquired. COMPARISON: [facility], , KNEE 3V LEFT, 02/18/2016, 13:02. FINDINGS: Bones: Moderate tricompartment osteoarthritis is seen. No gross acute left knee fracture or dislocation is seen. No significant patellar subluxation. No suspicious bony lesions. Soft tissues: Large suprapatellar joint effusion is seen.. No suspicious soft tissue calcifications. IMPRESSION: Large left knee joint effusion. Mild to moderate tricompartment osteoarthritis. No definite acute fracture or dislocation. Dictated by: Eh Camara M.D. on 05/26/2018 at 12:37 Approved by: Eh Camara M.D. on 05/26/2018 at 12:39
[2018-05-26] MEDS: HYDROCODONE/ACET 5/325 TABLET 1 TAB PO ×2 (00:13→02:50)
[2018-05-26] MEDS: CEFAZOLIN 1 GM/50 ML FROZ.PIGGY IV (00:41)
[2018-05-26 03:24] VITALS: BP 145/86; PULSE 89; RESP 16; TEMP 37.2; O2SAT 100
[2018-05-26] MEDS: SODIUM CHLORIDE 0.9% 1,000 ML 100 ML IV (04:12)
[2018-05-26 06:06] LABS: BUN Creatinine Ratio 12.5 (6-22); Blood Urea Nitrogen 5 mg/dL (7-17); Calcium 7.7 mg/dL (8.4-10.2); Carbon Dioxide 28 mmol/L (22-32); Chloride 97 mmol/L (98-107); Estimated Glomerular Filt Rate > 60.0 mL/min (>60); Glucose 94 mg/dL (80-110); HEMOLYSIS < 15 (0-50); Magnesium 2.2 mg/dL (1.6-2.3); Potassium 4.2 mmol/L (3.4-5.1); Sodium 130 mmol/L (137-145)
[2018-05-26] MEDS: PANTOPRAZOLE 20 MG TABLET PO (06:13)
[2018-05-26] MEDS: HYDROCODONE/ACET 5/325 TABLET 2 TAB PO ×4 (06:31→21:12)
[2018-05-26] MEDS: carBAMazepine XR 100 MG TAB 400 MG PO ×2 (06:52→18:57)
--- NOTE | 2018-05-26 08:06 | PM.PN.1 ---
Subjective Date Patient Seen: 05/26/18 Interval history: Luz Koch is a 67-year-old female with a past medical history significant for severe osteoporosis, epilepsy and hypertension who presented for left hip pain after ground level fall and admitted for left hip fracture now status post ORIF. The patient is resting in bed comfortably. She endorses significant pain last night after physical therapy that is now controlled with narcotics. She also points out that her left knee is significantly swollen limiting her mobility. She is somewhat emotionally labile. Reassured her that she will have good and bad days in regard to physical therapy and to take it a day at a time and at her own pace. She denies headache, cough, shortness of breath, chest pain, abdominal pain, nausea, vomiting, fever, chills, dysuria, diarrhea or constipation. She is voiding without difficulty. She has not yet had a bowel movement since admission. She is up ambulating with assistance and PT. Exam Vital Signs (past 8 hours): - 05/26/18 03:24 Temperature 98.9 F Pulse Rate 89 Respiratory Rate 16 Blood Pressure 145/86 H Pulse Oximetry 100 Oxygen Delivery Method Room Air Oxygen Flow Rate 1 Narrative Exam Narrative: General: Older female lying in bed and in no acute distress, well-developed, well-nourished, appropriately interactive. HEENT: Normocephalic, atraumatic. External ears without defect. Pupils equal, round, and reactive to light. Anicteric sclerae, moist conjunctivae, and no lid lag. Neck: Supple with full range of motion. No lymphadenopathy or thyromegaly. Cardiovascular: Regular rhythm, mild tachycardia, without murmurs, rubs, or gallops appreciated. Pulmonary: Clear to auscultation bilaterally without crackles, wheezes, or rhonchi. Normal respiratory effort with no use of accessory muscles. Abdomen: Soft, bowel sounds present, nontender, nondistended. No hepatosplenomegaly or masses appreciated. Extremities: No clubbing, cyanosis, or edema. Left hip with dressing in place C/D/I no surrounding erythema. Large effusion of left knee. Skin: Normal temperature, turgor, and texture; no rash, ulcers, or subcutaneous nodules appreciated. Neurological: Cranial nerves grossly intact. Psychiatric: Normal mood and affect. Alert and oriented to person, place, and time. Objective Labs Result Diagrams: 05/25/18 05:02 05/26/18 05:25 Labs: Laboratory Results - last 24 hr 05/26/18 05:25 Sodium 130 L Potassium 4.2 Chloride 97 L Carbon Dioxide 28 BUN 5 L Creatinine 0.40 L Estimated GFR > 60.0 BUN/Creatinine Ratio 12.5 Glucose 94 Calcium 7.7 L Magnesium 2.2 Assessment & Plan Assessment & Plan narrative: Luz Koch is a 67-year-old female with a past medical history significant for severe osteoporosis, epilepsy and hypertension who presented for left hip pain after ground level fall and admitted for left hip fracture now status post ORIF. 1. Acute pathological fracture of left hip status post ORIF, secondary to osteoporosis, present on admission. Active. -Patient with intertrochanteric fracture left hip after GLF. -Dr. Patino has been consulted and we appreciate her time and care of the patient. Now status post ORIF. Continue postoperative pain and management per Ortho. -Continue PT and OT. 2. Acute traumatic large left knee effusion, present on admission. Active. -Patient reports decreased mobility due to large left knee effusion. -Ordered left knee x-ray which demonstrates large effusion without patellar or other fracture. -Discussed with Dr. Patino who will possibly drain the effusion. 3. Severe osteoporosis, chronic, present on admission. Active. -Likely secondary to chronic antiepileptic therapy. -Patient with multiple pathological fractures including wrist, patella and pelvis. Patient previously on Fosamax for 13 years which was discontinued 3 years ago for lack of improvement. Patient takes calcium and vitamin-D supplementation -Recommend Prolia or Forteo outpatient. 4. Epilepsy, chronic, present on admission. Stable. -Seizure disorder has been well controlled on carbamazepine 400 mg twice daily which is continued. -Last seizure was 8 years ago triggered by medication interaction reducing her Tegretol level. -Carbamazepine level pending. 5. Hypertension, chronic, present on admission. Stable. -Patient with hypertension with BP 182/110 secondary to pain response. -Continue irbesartan 150 mg daily. Disposition: [facility].
[2018-05-26] MEDS: IRBESARTAN 150 MG TABLET PO (09:09)
[2018-05-26] MEDS: ASPIRIN EC 81 MG TABLET PO ×2 (09:09→21:13)
[2018-05-26] MEDS: DOCUSATE 100 MG CAPSULE PO ×2 (09:09→21:13)
[2018-05-26 09:45] VITALS: BP 134/85; PULSE 97; RESP 20; TEMP 36.7; O2SAT 99
--- NOTE | 2018-05-26 11:08 | PM.PN.1 ---
Exam Vital Signs (past 8 hours): - 05/26/18 03:24 05/26/18 09:45 Temperature 98.9 F 98.1 F Pulse Rate 89 97 H Respiratory Rate 16 20 Blood Pressure 145/86 H 134/85 Pulse Oximetry 100 99 Oxygen Delivery Method Room Air Oxygen Flow Rate 1 Objective Labs Result Diagrams: 05/25/18 05:02 05/26/18 05:25 Labs: Laboratory Results - last 24 hr 05/26/18 05:25 Sodium 130 L Potassium 4.2 Chloride 97 L Carbon Dioxide 28 BUN 5 L Creatinine 0.40 L Estimated GFR > 60.0 BUN/Creatinine Ratio 12.5 Glucose 94 Calcium 7.7 L Magnesium 2.2 Assessment & Plan Assessment & Plan narrative: Patient is admitted after surgery. Patient has been stable and progressing with physical therapy. Patient is neurovascularly intact on exam. Patient has no signs or symptoms of DVT. Patient's dressing is clean dry and intact. L hip dressing clean and dry. Continue mobility training. Possible discharge tomorrow.
--- NOTE | 2018-05-26 11:11 | PT.IPTN ---
Current Diagnoses Hypo-osmolality and hyponatremia (05/23/18) Epilepsy, unspecified, not intractable, without status epilepticus (05/23/18) Essential (primary) hypertension (05/23/18) Other osteoporosis with current pathological fracture, left femur, initial encounter for fracture (05/23/18) Age-related osteoporosis without current pathological fracture (05/23/18) Unspecified trochanteric fracture of left femur, initial encounter for closed fracture (05/23/18) Surgery Performed Operation Date: 05/24/18 16:00 Actual Procedures p ORIF Hip/Intramedullary Pako (proximal screws in head)(Left) - Gabby Patino MD Physical Therapy Treatment Note M2 PT-IP Current Condition Start: 05/24/18 12:25 Freq: NEEDED Status: Active Protocol: Document 05/25/18 11:01 DLM (Rec: 05/25/18 13:22 DLM [id number]) Physical Therapy Current Condition Current Condition Evaluation Date 05/25/18 Treatment Diagnosis left hip ORIF 05/24/18, fall with fx, impaired gait Onset Date 05/23/18 Precautions Brace left wrist splinted, ORIF left wrist 05/03/18 Other Precautions Limited weight bearing left wrist due to ORIF but no specific orders seen in chart. Partial weight bearing left hip following sx with IM nail 05/24/18. Weight Bearing Status Weight Bearing Status Partial Weight Bearing M3 PT-IP Subjective Start: 05/24/18 12:25 Freq: NEEDED Status: Active Protocol: Document 05/26/18 11:11 DLM (Rec: 05/26/18 13:14 DLM [id number]) Subjective Physical Therapy Visit Type Type Treatment Note Visit Start Time 10:30 Visit Stop Time 11:11 Total Visit Minutes 41 Number of WINDOW SASH INSTALLER Visits 0 Physical Therapy Visit Comments Patient Comments She was very tired and sore last night, left wrist was sore also Patient Goals Go to SNF then home. Therapy Pain Assessment Pain When Pain Assessed During Mobility Pain Present Pain Present Pain Reported Location Left Hip Intensity 5 Scale Used Numeric (1 - 10) Description Aching Pain Behaviors Facial Grimacing Guarding Pain Management Techniques Apply Cold Re-positioning M4 PT-IP Mobility and Gait Start: 05/24/18 12:25 Freq: NEEDED Status: Active Protocol: Document 05/26/18 11:11 DLM (Rec: 05/26/18 13:14 [facility] [id number]) PT-Bed Mobility Assessment Supine to Sit Supine to Sit Standby Assistance Scooting Scooting to Edge of Bed Independent PT-Transfer Assessment Sit to and From Stand Sit to and from Stand Contact Guard Assistance Use of Upper Extremities Equipment Transfer Assistive Device Gait Belt Platform Walker Transfers Transfer Destination Chair Transfer Technique Stand Step Pivot Transfer Ability Level of Assist Contact Guard Assistance 1 Person Assistance Comments Mobility Comments cuing to avoid pushing with left wrist Gait Assessment Gait Gait Assistance Required: Contact Guard Assist 1 Person Assist Distance (Feet) 20 Able to Maintain Weight Bearing Status Yes During Gait Assistive Devices Assistive Device Gait Belt Platform Walker Gait Deviations General Gait Pattern Antalgic Flexed Trunk Factors Limiting Gait Function Factors Limiting Gait Function Decreased Activity Tolerance Decreased Strength Pain Comments Gait Comments Gait training in room, very cuing for UE support on platform FWW to manage partial weight bearing Stair Climbing Assessment Comments Stair Climbing Comments pt unable today PT-Balance Assessment Sitting Balance and Reactions Static Sitting Balance Ability Good Dynamic Sitting Balance Ability Good Standing Balance and Reactions Static Standing Balance Ability Good Dynamic Standing Balance Ability Fair Device Used Platform FWW M5 PT-IP Objective Assessments Start: 05/24/18 12:25 Freq: NEEDED Status: Active Protocol: Document 05/25/18 11:01 [facility] (Rec: 05/25/18 13:22 [facility] [id number]) Orientation Orientation/Cognition Level of Alertness Alert Orientation Name Age Birthday Month Date Year Day of Week Place Situation Language Function Ability No Deficits Noted Safety Awareness Understands Safety Issues Memory Description No Deficits Noted Gross Range of Motion Upper Extremity ROM Assessment Left Impaired Impairments left wrist splinted and not tested due to ORIF 05/03/18 Lower Extremity ROM Assessment Left Impaired Impairments pain in left hip and knee areas which limits her motion Strength Upper Extremity Strength Assessment Left Impaired Wrist not tested due to ORIF Hand not tested, moves fingers actively Lower Extremity Strength Assessment Left Impaired Hip needs assist to move LE with pain Knee ext 2+/5 Ankle DF 4-/5 Comments Strength Comments strength limited by post-op pain Coordination Assessment Gross Coordination Gross Coordination WNL Sensation Assessment Sensation Gross Sensation Right LE Impaired Left LE Impaired Sensation Description Numbness Comments Sensation Comments hx of numbness in feet due to neuropathy Muscle Tone Muscle Tone WNL Yes M6 PT-IP Treatment Start: 05/24/18 12:25 Freq: NEEDED Status: Active Protocol: Document 05/26/18 11:11 DLM (Rec: 05/26/18 13:14 DLM [id number]) Physical Therapy Treatment Exercises Exercises Ankle Pumps Gluteal Sets Quad Sets Seated Knee Flexion/Extension Education Education Provided Precautions Weight Bearing Status Safety Other Treatments Other Treatment Performed edema in left thigh and knee M7 PT-IP Assessment and Plan Start: 05/24/18 12:25 Freq: NEEDED Status: Active Protocol: Document 05/26/18 11:11 DLM (Rec: 05/26/18 13:14 DLM [id number]) PT Summary Assessment and Plan Summary Impairments Pain ROM Strength Balance Bed Mobility Transfers Gait Activity Tolerance Progress Towards Goals Progressing Toward Goals Assessment Summary Shanda is alert and motivated to participate in physical therapy. She needs reminders to avoid pushing with left wrist during functional mobility. She is able to use PWB on left LE during gait with platform fWW with verbal cues. She is concerned about being able to manage her pain. Edema continues in left knee as well as thigh area today. Continue to plan for SNF rehab at discharge. Goals Bed Mobility Goal Contact Guard Assistance Transfer Goal Contact Guard Assistance Front Wheeled Walker Gait Goal Contact Guard Assistance Minimal Assistance Front Wheel Walker Gait Distance 30 feet Other Goals All mobility with platform FWW with platform for left UE, partial weight bearing left LE for gait Days to Meet Goals 4 Frequency of Treatment Frequency Of Treatment Twice a Day Treatment Plan Physical Therapy Treatment Plan Bed Mobility Training Transfer Training Gait Training Therapeutic Exercise Post Op Education Discharge Planning Hot or Cold Pack Other Recommendations and Next Treatment monitor left knee, pt voiced Focus concerns she twisted left knee when she fell ([place] is aware) Recommendations To Nursing Amount of Assist Needed 1 Person Assist Discharge Recommendations PT Discharge Recommendations SNF Rehab
[2018-05-26] MEDS: diphenhydrAMINE 50 MG/ML VIAL 25 MG IV (11:54)
[2018-05-26 14:29] VITALS: BP 116/78; PULSE 102; RESP 16; TEMP 36.8; O2SAT 100
--- NOTE | 2018-05-26 14:52 | PT.IPTN ---
Current Diagnoses Hypo-osmolality and hyponatremia (05/23/18) Epilepsy, unspecified, not intractable, without status epilepticus (05/23/18) Essential (primary) hypertension (05/23/18) Other osteoporosis with current pathological fracture, left femur, initial encounter for fracture (05/23/18) Age-related osteoporosis without current pathological fracture (05/23/18) Unspecified trochanteric fracture of left femur, initial encounter for closed fracture (05/23/18) Surgery Performed Operation Date: 05/24/18 16:00 Actual Procedures p ORIF Hip/Intramedullary Pako (proximal screws in head)(Left) - Gabby Patino MD Physical Therapy Treatment Note M2 PT-IP Current Condition Start: 05/24/18 12:25 Freq: NEEDED Status: Active Protocol: Document 05/25/18 11:01 DLM (Rec: 05/25/18 13:22 DLM [id number]) Physical Therapy Current Condition Current Condition Evaluation Date 05/25/18 Treatment Diagnosis left hip ORIF 05/24/18, fall with fx, impaired gait Onset Date 05/23/18 Precautions Brace left wrist splinted, ORIF left wrist 05/03/18 Other Precautions Limited weight bearing left wrist due to ORIF but no specific orders seen in chart. Partial weight bearing left hip following sx with IM pako 05/24/18. Weight Bearing Status Weight Bearing Status Partial Weight Bearing M3 PT-IP Subjective Start: 05/24/18 12:25 Freq: NEEDED Status: Active Protocol: Document 05/26/18 14:52 DLM (Rec: 05/26/18 16:21 DLM [id number]) Subjective Physical Therapy Visit Type Type Treatment Note Visit Start Time 14:20 Visit Stop Time 14:52 Total Visit Minutes 32 Number of MARINE PHOTOGRAPHER Visits 0 Physical Therapy Visit Comments Patient Comments Her left knee feels better/ looser after doing the exercises this AM, left wrist feels better this afternoon Patient Goals Go to SNF then home. Therapy Pain Assessment Pain When Pain Assessed During Mobility Pain Present Pain Present Pain Reported Location Left Hip Intensity 4 Scale Used Numeric (1 - 10) Description Aching Pain Behaviors Facial Grimacing Guarding Pain Management Techniques Apply Cold Re-positioning M4 PT-IP Mobility and Gait Start: 05/24/18 12:25 Freq: NEEDED Status: Active Protocol: Document 05/26/18 14:52 DLM (Rec: 05/26/18 16:21 [facility] [id number]) PT-Bed Mobility Assessment Supine to Sit Supine to Sit Independent Scooting Scooting to Edge of Bed Independent PT-Transfer Assessment Sit to and From Stand Sit to and from Stand Standby Assistance Contact Guard Assistance Use of Upper Extremities Equipment Transfer Assistive Device Gait Belt Platform Walker Transfers Transfer Destination Bed Toilet Transfer Technique Stand Step Pivot Transfer Ability Level of Assist Contact Guard Assistance 1 Person Assistance Comments Mobility Comments cuing to avoid pushing with left wrist, pt placing left UE onto platform attachment before standing to help her recall wrist restrictions Gait Assessment Gait Gait Assistance Required: Contact Guard Assist Distance (Feet) 30 Able to Maintain Weight Bearing Status Yes During Gait Assistive Devices Assistive Device Gait Belt Platform Walker Gait Deviations General Gait Pattern Antalgic Flexed Trunk Factors Limiting Gait Function Factors Limiting Gait Function Decreased Activity Tolerance Decreased Strength Pain Comments Gait Comments Gait training in room and out to balderas, verbal cuing for UE support on platform FWW to manage partial weight bearing PT-Balance Assessment Sitting Balance and Reactions Static Sitting Balance Ability Normal Dynamic Sitting Balance Ability Normal Standing Balance and Reactions Static Standing Balance Ability Good Dynamic Standing Balance Ability Fair Device Used Platform FWW M5 PT-IP Objective Assessments Start: 05/24/18 12:25 Freq: NEEDED Status: Active Protocol: Document 05/25/18 11:01 [facility] (Rec: 05/25/18 13:22 [facility] [id number]) Orientation Orientation/Cognition Level of Alertness Alert Orientation Name Age Birthday Month Date Year Day of Week Place Situation Language Function Ability No Deficits Noted Safety Awareness Understands Safety Issues Memory Description No Deficits Noted Gross Range of Motion Upper Extremity ROM Assessment Left Impaired Impairments left wrist splinted and not tested due to ORIF 05/03/18 Lower Extremity ROM Assessment Left Impaired Impairments pain in left hip and knee areas which limits her motion Strength Upper Extremity Strength Assessment Left Impaired Wrist not tested due to ORIF Hand not tested, moves fingers actively Lower Extremity Strength Assessment Left Impaired Hip needs assist to move LE with pain Knee ext 2+/5 Ankle DF 4-/5 Comments Strength Comments strength limited by post-op pain Coordination Assessment Gross Coordination Gross Coordination WNL Sensation Assessment Sensation Gross Sensation Right LE Impaired Left LE Impaired Sensation Description Numbness Comments Sensation Comments hx of numbness in feet due to neuropathy Muscle Tone Muscle Tone WNL Yes M6 PT-IP Treatment Start: 05/24/18 12:25 Freq: NEEDED Status: Active Protocol: Document 05/26/18 14:52 DLM (Rec: 05/26/18 16:21 DLM [id number]) Physical Therapy Treatment Exercises Exercises Ankle Pumps Gluteal Sets Quad Sets Heel Slides Seated Knee Flexion/Extension Knee ROM Measurement 0-90 left knee AROM Education Education Provided Precautions Weight Bearing Status Safety Other Treatments Other Treatment Performed edema in left thigh and knee M7 PT-IP Assessment and Plan Start: 05/24/18 12:25 Freq: NEEDED Status: Active Protocol: Document 05/26/18 14:52 DLM (Rec: 05/26/18 16:21 DLM [id number]) PT Summary Assessment and Plan Summary Impairments Pain ROM Strength Balance Bed Mobility Transfers Gait Activity Tolerance Progress Towards Goals Progressing Toward Goals Assessment Summary Shanda continues to progress in therapy. She needs intermittent verbal reminders to slow down during mobility. She is having less left wrist pain with strict reminders to avoid pushing/pulling with left hand during mobility. She reports improved pain management over-all this afternoon. Her left knee ROM improved with gentle active ROM exercises and icing. Continue to plan for discharge to SNF rehab. Goals Bed Mobility Goal Independent Transfer Goal Standby Assistance Front Wheeled Walker Gait Goal Contact Guard Assistance Front Wheel Walker Gait Distance 50 feet Other Goals All mobility with platform FWW with platform for left UE, partial weight bearing left LE for gait Days to Meet Goals 3 Frequency of Treatment Frequency Of Treatment Twice a Day Treatment Plan Physical Therapy Treatment Plan Bed Mobility Training Transfer Training Gait Training Therapeutic Exercise Post Op Education Discharge Planning Hot or Cold Pack Other Recommendations and Next Treatment monitor left knee, pt voiced Focus concerns she twisted left knee when she fell (PA is aware) Recommendations To Nursing Amount of Assist Needed 1 Person Assist Discharge Recommendations PT Discharge Recommendations SNF Rehab Other Discharge Recommendations a barrier to returning home is her 7 steps to enter the house Equipment Needed for Home Before defer to SNF Discharge
--- NOTE | 2018-05-26 15:05 | CM.DPNOTE ---
Addendum entered by ENDY Angel 05/26/18 15:10: PASRR completed. Original Note: Discussed DCP options again w/pt, reviewed SNF options, she would like referral faxed to [facility] and would prefer this SNF especially if they have a private rm. Faxed referral to [facility] and spoke to Opal in admissions this w/e. They can accept pt Sunday and have a private rm available. Transportation is being arranged today for p/u Sunday at approx 1330. Reviewed w/pt and she remains agreeable to this plan. Pt has many questions about her DC and the transition to [facility]. This PAPER PRODUCTION ENGINEER attempted to address some questions and concerns but had to step out in order for PT to begin their work. This PAPER PRODUCTION ENGINEER unable to return to , it's likely the scheduled DC product planner Sunday could address additional questions and concerns as they arise. P: DC likely Sunday, [facility] via cabulance (still awaiting p/u time) ENDY Angel
[2018-05-26 15:39] VITALS: BP 115/72; PULSE 100; RESP 18; TEMP 37.1; O2SAT 100
[2018-05-26] MEDS: HYDROCORTISONE 1% CREAM 28 GM 1 APPLIC TOP (18:09)
[2018-05-26 19:53] VITALS: BP 120/69; PULSE 95; RESP 16; TEMP 37; O2SAT 97
--- NOTE | 2018-05-26 20:02 | PC.NURSE ---
Pt c/o pain in hip 06/05, medicated Q3 hrs with Hydrocodone 2 . States she would like to continue to be medicated w/ pain meds tonight around the clock to stay on top of pain. Lung sounds clear bilaterally, VSS. Left lower leg edema and knee swelling, ice for knee swelling seems to be helping. Pt has 2 Aquacell dressings on surgical site, clean dry and intact. Has large rash on bottom and coccyx area, Dr. Downey ordered hydrocortisone cream TID as needed, pt. felt relief w/ cream. Pt had shower this afternoon, and will be ready to discharge tomorrow to [facility].
[2018-05-26] MEDS: MAGNESIUM HYDROXIDE 30 ML UDC PO (21:12)
[2018-05-26] MEDS: SODIUM CHLORIDE 0.9% FLUSH 10 ML IV (21:51)
[2018-05-27] MEDS: HYDROCODONE/ACET 5/325 TABLET 2 TAB PO ×3 (01:48→13:51)
[2018-05-27] MEDS: HYDROCORTISONE 1% CREAM 28 GM 1 APPLIC TOP ×2 (01:55→08:43)
[2018-05-27 01:57] VITALS: BP 143/88; PULSE 103; RESP 17; TEMP 36.7; O2SAT 98
[2018-05-27 05:41] LABS: Add Manual Diff / Slide Review NO; Basophils Absolute Auto 0 /uL (0-100); Basophils Percent Auto 0.5 % (0-2); Eosinophils Absolute Auto 300 /uL (0-450); Eosinophils Percent Auto 7.7 % (2-4); Hematocrit 23.5 % (36-46); Lymphocytes Absolute Auto 900 /uL (1100-4500); Lymphocytes Percent Auto 25.7 % (25-40); Mean Corpuscular Hemoglobin 33.7 PG (26-34); Mean Corpuscular Volume 98.9 fL (80-100); Monocytes Absolute Auto 400 /uL (0-900); Monocytes Percent Auto 11.3 % (3-14); Neutrophils Absolute Auto 1900 /uL (1500-7000); Neutrophils Percent Auto 54.8 % (50-75); Platelet Count 162 X10^3/uL (150-400); Red Blood Cell Count 2.37 X10^6/uL (4.0-5.2); Red Cell Distribution Width 11.9 % (11.6-14.8); White Blood Cell Count 3.4 X10^3/uL (4.5-11.0)
[2018-05-27 05:43] VITALS: BP 114/60; PULSE 92; RESP 17; TEMP 36.8; O2SAT 98
[2018-05-27 05:44] LABS: Blood Urea Nitrogen 8 mg/dL (7-17); Calcium 8.1 mg/dL (8.4-10.2); Carbon Dioxide 29 mmol/L (22-32); Chloride 96 mmol/L (98-107); Estimated Glomerular Filt Rate > 60.0 mL/min (>60); Glucose 102 mg/dL (80-110); HEMOLYSIS < 15 (0-50); Potassium 4.6 mmol/L (3.4-5.1); Sodium 129 mmol/L (137-145)
--- NOTE | 2018-05-27 06:13 | PC.NURSE ---
Pt able to sleep, rates pain 5/10 good relief from two [place] 5/325 mg po. Voiding qs clear yellow, VSS,
--- NOTE | 2018-05-27 06:14 | PC.NURSE ---
Pt able to sleep this shift. Rates pain 5/10 with good relief from two [place] 5/325 mg po. Voiding qs clear yellow, states she has passed gas. S1, S2, LS clear. VSS.
[2018-05-27] MEDS: POLYETHYLENE GLYCOL 3350 17 GM POWD.PACK PO (08:43)
[2018-05-27] MEDS: IRBESARTAN 150 MG TABLET PO (08:43)
[2018-05-27] MEDS: BISACODYL 5 MG TABLET 10 MG PO (08:44)
[2018-05-27] MEDS: carBAMazepine XR 100 MG TAB 400 MG PO (08:44)
[2018-05-27] MEDS: ASPIRIN EC 81 MG TABLET PO (08:44)
[2018-05-27] MEDS: SODIUM CHLORIDE 0.9% FLUSH 10 ML IV (08:44)
[2018-05-27] MEDS: DOCUSATE 100 MG CAPSULE PO (08:45)
[2018-05-27 10:00] VITALS: BP 112/67; PULSE 101; RESP 16; TEMP 36.7; O2SAT 95
--- NOTE | 2018-05-27 10:08 | CM.DPC ---
Addendum entered by ENDY Monahan 05/27/18 11:28: ADD: Per MD, pt is medically stable for d/c to SNF today. SW met bedside with pt and explained role and pt confirms that she is agreeable to [facility] today. SW discussed the process of w/c van transport and general rehab at SNF and answered pt's questions. Pt very appreciative of her care here at the hospital and states that her family and friends are fully aware of the d/c plan of [facility] and she will update them on the d/c time of 1415 today. JACKSON updated RN and FITTER HELPER and CC Rhonda kindly faxing d/c packet to [facility] when available. PASRR already faxed. ENDY Monahan Original Note: DCP Discharge to SNF Per MD, will round on pt this morning to confirm she is stable for d/c to SNF today. SW called [facility] and confirmed that they can accept the pt today and they have w/c van transport scheduled for 1415 today. JACKSON faxed [facility] the PAS[facility] to review and will fax the d/c packet when MD discharges pt. JACKSON updated RN on tentative time. Plan: SW to follow for likely pt d/c to [facility] today. ENDY Monahan
--- NOTE | 2018-05-27 10:26 | PM.DS.1 ---
History of Present Illness Date Patient Seen: 05/27/18 Chief complaint: GLF Narrative: This is a 67-year-old female patient with a history of severe osteoporosis, epilepsy and hypertension who presents to the ER today with left hip pain. the patient reports that her shoes were rubbing on her feet so she changed to flip flops and subsequently tripped on a rug sustaining a ground level fall onto her left hip. She had immediate pain and was nonambulatory following the event. She has sharp left hip pain with movement and dull aching at rest with shortening and external rotation. She also reports left knee pain on the lateral aspect. She denies striking her head, loss of consciousness, neck or back pain. the patient has sustained multiple pathological fractures including left wrist and stress fractures the pelvis and a patellar fracture. She does endorse a history of seizures for which she is taking carbamazepine. Her last seizure was 8 years ago which occurred related to an interaction with medication which dropped her Tegretol level. The patient reports no recent illness including fevers or chills, head congestion or sore throat. She has had no shortness of breath or cough. She denies chest pain or abdominal pain. She has no nausea vomiting, constipation or diarrhea. Imaging in the ER demonstrates a displaced intertrochanteric fracture of left hip. Chest x-ray was completed which shows normal cardiac silhouette but demonstrates interstitial prominence but no mention of pulmonary vascular congestion or edema. No labs are drawn. Discharge Providers Date of admission: 05/23/18 21:35 Discharge Date: 05/27/18 Primary care physician: Pamela Dennison MD Consults: 05/23/18 23:20 Consult to Discharge Planning Routine Comment: Consult to Occupational Therapy Evaluate & Treat Comment: GLF, fracture left hip, osteoporosis Physician Instructions: Evaluate and treat Consult to Physical Therapy Evaluate & Treat Comment: GLF, fracture left hip, osteoporosis Physician Instructions: Evaluate and Treat Consult to Physician Routine Comment: Consulting Provider: Gabby Patino Reason for consultation: Left intertrochanteric fracture Has provider been notified: Yes 05/24/18 23:55 Consult to Discharge Planning Routine Comment: ecf Consult to Physical Therapy Evaluate & Treat Comment: pwb 100 lbs LLE, platform walker Physician Instructions: Evaluate and Treat Consult to Respiratory Therapy Evaluate & Treat Comment: Physician Instructions: Evaluate and treat Discharge provider: Barbara Dennis MD Summary Discharge Diagnosis: Left hip fracture following ground level fall secondary to Osteoporosis Left Hip intertrochanteric fracture s/p ORIF, present on admission Left knee swelling, s/p fall Acute Blood loss Anemia Hypertension History of seizures Hyponatremia Hospital Course: Patient was admitted to the hospital for treatment of her left hip fracture. She undewent surgical repair without incident. The patient developed swelling of the left knee, xray was negative. She made excellent progress. Patient was found to be anemic but did not require transfusion. She will be started on Prolia for osteoporosis. She will continue her calcium and vit D. Her blood pressure was elevated then improved. She was deemed appropriate for transfer to [facility] for ongoing rehabilitation. Status at Discharge Cognitive/behavioral status at discharge: oriented Functional status at discharge: uses cane/walker Overall status at discharge: patient is not back to baseline Time Spent with Patient Less than 30 minutes Exam Vital Signs (past 8 hours): - 05/27/18 05:43 05/27/18 10:00 Temperature 98.3 F 98.1 F Pulse Rate 92 H 101 H Respiratory Rate 17 16 Blood Pressure 114/60 112/67 Pulse Oximetry 98 95 Oxygen Delivery Method Room Air Oxygen Flow Rate 0 Narrative Exam Narrative: Delightful female in no acute distress Lungs: clear to auscultation CV: RRR nl Sl s2 2/6 VALERIANO Abd: soft/ nontender/ nondistended Ext: left hip with dressing in place, left knee boggy with some fluid, no warmth or erthema , no pain with palpation Objective Labs Result Diagrams: 05/27/18 05:07 05/27/18 05:07 Labs: Laboratory Results - last 24 hr 05/27/18 05/27/18 05:07 05:07 WBC 3.4 L RBC 2.37 L Hgb 8.0 L Hct 23.5 L MCV 98.9 MCH 33.7 MCHC 34.0 RDW 11.9 Plt Count 162 Neut % (Auto) 54.8 Lymph % (Auto) 25.7 [place] % (Auto) 11.3 Eos % (Auto) 7.7 H Baso % (Auto) 0.5 Neut # (Auto) 1900 Lymph # (Auto) 900 L [place] # (Auto) 400 Eos # (Auto) 300 Baso # (Auto) 0 Sodium 129 L Potassium 4.6 Chloride 96 L Carbon Dioxide 29 BUN 8 Creatinine 0.40 L Estimated GFR > 60.0 BUN/Creatinine Ratio 20.0 Glucose 102 Calcium 8.1 L Discharge Plan Discharge Plan Discharge Problem: Trochanteric fracture of left femur Patient Disposition: SNF Transfer to: [facility] Transportation: [facility] I certify the postop hospital snf care is medically necessary on a continuing basis for any conditions for which he/ she received care during this hospitalization.: Yes The receiving facility has agreed to accept transfer and provide medical treatment.: Yes Discharge Med Rec/Prescriptions Prescriptions: New hydrocodone-acetaminophen 5-325 mg Tablet 2 tab PO Q4H PRN (Reason: Pain, Severe (7-10)) Qty: 20 RF: 0 docusate sodium 100 mg Capsule 100 mg PO BID 30 Days Qty: 60 RF: 0 calcium carbonate [Calcium 500] 500 mg calcium (1,250 mg) tablet 500 mg PO BID MDD 1000 mg 30 Days Qty: 60 RF: 0 cholecalciferol (vitamin D3) [Vitamin D3] 400 unit tablet 800 unit PO DAILY 30 Days RF: 0 Prolia 60 mg/mL syringe 60 mg SUBCUT [id number] Qty: 1 RF: 0 ferrous sulfate [iron] 325 mg (65 mg iron) tablet 325 mg PO BID Qty: 60 RF: 0 hydrocortisone 1 % Cream 1 applic topical TID PRN (Reason: Itching) 20 Days RF: 0 Continued carbamazepine 400 MG tablet extended release 12 hr 400 mg PO Q12H Qty: 0 RF: 0 irbesartan 150 mg Tablet 150 mg PO DAILY RF: 0 Discontinued hydrocodone-acetaminophen [[place]] 5-325 mg tablet 1 tab PO Q4-6H PRN (Reason: wrist fracture pain) Qty: 10 RF: 0 Follow up/Referrals: Pamela Dennison MD [Primary Care Provider] - Provider Discharge Instructions Diet: Low-sodium Liquid consistency: Normal/Thin Food texture: Regular [facility] Reason for rehabilitation: Post-operative therapy Rehab type: Physical therapy and Occupational therapy Restrictions to mobility: Weight bearing as tolerating Discharge Data Primary Care Provider: Pamela Dennison Attending Provider: Chadwick Altman Admit Date/Time: 05/23/18 21:35
--- NOTE | 2018-05-27 10:33 | P.DS_ITS ---
History of Present Illness Date Patient Seen: 05/27/18 Chief complaint: GLF Narrative: This is a 67-year-old female patient with a history of severe osteoporosis, epilepsy and hypertension who presents to the ER today with left hip pain. the patient reports that her shoes were rubbing on her feet so she changed to flip flops and subsequently tripped on a rug sustaining a ground level fall onto her left hip. She had immediate pain and was nonambulatory following the event. She has sharp left hip pain with movement and dull aching at rest with shortening and external rotation. She also reports left knee pain on the lateral aspect. She denies striking her head, loss of consciousness, neck or back pain. the patient has sustained multiple pathological fractures including left wrist and stress fractures the pelvis and a patellar fracture. She does endorse a history of seizures for which she is taking carbamazepine. Her last seizure was 8 years ago which occurred related to an interaction with medication which dropped her Tegretol level. The patient reports no recent illness including fevers or chills, head congestion or sore throat. She has had no shortness of breath or cough. She denies chest pain or abdominal pain. She has no nausea vomiting, constipation or diarrhea. Imaging in the ER demonstrates a displaced intertrochanteric fracture of left hip. Chest x-ray was completed which shows normal cardiac silhouette but demonstrates interstitial prominence but no mention of pulmonary vascular congestion or edema. No labs are drawn. Discharge Providers Date of admission: 05/23/18 21:35 Discharge Date: 05/27/18 Primary care physician: Pamela Dennison MD Consults: 05/23/18 23:20 Consult to Discharge Planning Routine Comment: Consult to Occupational Therapy Evaluate & Treat Comment: GLF, fracture left hip, osteoporosis Physician Instructions: Evaluate and treat Consult to Physical Therapy Evaluate & Treat Comment: GLF, fracture left hip, osteoporosis Physician Instructions: Evaluate and Treat Consult to Physician Routine Comment: Consulting Provider: Gabby Patino Reason for consultation: Left intertrochanteric fracture Has provider been notified: Yes 05/24/18 23:55 Consult to Discharge Planning Routine Comment: ecf Consult to Physical Therapy Evaluate & Treat Comment: pwb 100 lbs LLE, platform walker Physician Instructions: Evaluate and Treat Consult to Respiratory Therapy Evaluate & Treat Comment: Physician Instructions: Evaluate and treat Discharge provider: Barbara Dennis MD Summary Discharge Diagnosis: Left hip fracture following ground level fall secondary to Osteoporosis Left Hip intertrochanteric fracture s/p ORIF, present on admission Left knee swelling, s/p fall Acute Blood loss Anemia Hypertension History of seizures Hyponatremia Hospital Course: Patient was admitted to the hospital for treatment of her left hip fracture. She undewent surgical repair without incident. The patient developed swelling of the left knee, xray was negative. She made excellent progress. Patient was found to be anemic but did not require transfusion. She will be started on Prolia for osteoporosis. She will continue her calcium and vit D. Her blood pressure was elevated then improved. She was deemed appropriate for transfer to [facility] for ongoing rehabilitation. Status at Discharge Cognitive/behavioral status at discharge: oriented Functional status at discharge: uses cane/walker Overall status at discharge: patient is not back to baseline Time Spent with Patient Less than 30 minutes Exam Vital Signs (past 8 hours): - 05/27/18 05:43 05/27/18 10:00 Temperature 98.3 F 98.1 F Pulse Rate 92 H 101 H Respiratory Rate 17 16 Blood Pressure 114/60 112/67 Pulse Oximetry 98 95 Oxygen Delivery Method Room Air Oxygen Flow Rate 0 Narrative Exam Narrative: Delightful female in no acute distress Lungs: clear to auscultation CV: RRR nl Sl s2 2/6 VALERIANO Abd: soft/ nontender/ nondistended Ext: left hip with dressing in place, left knee boggy with some fluid, no warmth or erthema , no pain with palpation Objective Labs Result Diagrams: 05/27/18 05:07 05/27/18 05:07 Labs: Laboratory Results - last 24 hr 05/27/18 05/27/18 05:07 05:07 WBC 3.4 L RBC 2.37 L Hgb 8.0 L Hct 23.5 L MCV 98.9 MCH 33.7 MCHC 34.0 RDW 11.9 Plt Count 162 Neut % (Auto) 54.8 Lymph % (Auto) 25.7 [place] % (Auto) 11.3 Eos % (Auto) 7.7 H Baso % (Auto) 0.5 Neut # (Auto) 1900 Lymph # (Auto) 900 L [place] # (Auto) 400 Eos # (Auto) 300 Baso # (Auto) 0 Sodium 129 L Potassium 4.6 Chloride 96 L Carbon Dioxide 29 BUN 8 Creatinine 0.40 L Estimated GFR > 60.0 BUN/Creatinine Ratio 20.0 Glucose 102 Calcium 8.1 L Discharge Plan Discharge Plan Discharge Problem: Trochanteric fracture of left femur Patient Disposition: SNF Transfer to: [facility] Transportation: [facility] I certify the postop hospital mcfp care is medically necessary on a continuing basis for any conditions for which he/ she received care during this hospitalization.: Yes The receiving facility has agreed to accept transfer and provide medical treatment.: Yes Discharge Med Rec/Prescriptions Prescriptions: New hydrocodone-acetaminophen 5-325 mg Tablet 2 tab PO Q4H PRN (Reason: Pain, Severe (7-10)) Qty: 20 RF: 0 docusate sodium 100 mg Capsule 100 mg PO BID 30 Days Qty: 60 RF: 0 calcium carbonate [Calcium 500] 500 mg calcium (1,250 mg) tablet 500 mg PO BID MDD 1000 mg 30 Days Qty: 60 RF: 0 cholecalciferol (vitamin D3) [Vitamin D3] 400 unit tablet 800 unit PO DAILY 30 Days RF: 0 Prolia 60 mg/mL syringe 60 mg SUBCUT [id number] Qty: 1 RF: 0 ferrous sulfate [iron] 325 mg (65 mg iron) tablet 325 mg PO BID Qty: 60 RF: 0 hydrocortisone 1 % Cream 1 applic topical TID PRN (Reason: Itching) 20 Days RF: 0 Continued carbamazepine 400 MG tablet extended release 12 hr 400 mg PO Q12H Qty: 0 RF: 0 irbesartan 150 mg Tablet 150 mg PO DAILY RF: 0 Discontinued hydrocodone-acetaminophen [[place]] 5-325 mg tablet 1 tab PO Q4-6H PRN (Reason: wrist fracture pain) Qty: 10 RF: 0 Follow up/Referrals: Pamela Dennison MD [Primary Care Provider] - Provider Discharge Instructions Diet: Low-sodium Liquid consistency: Normal/Thin Food texture: Regular [facility] Reason for rehabilitation: Post-operative therapy Rehab type: Physical therapy and Occupational therapy Restrictions to mobility: Weight bearing as tolerating Discharge Data Primary Care Provider: Pamela Dennison Attending Provider: Chadwick Altman Admit Date/Time: 05/23/18 21:35
[2018-05-27 11:41] LABS: Carbamazepine Tegretol Level 6.4 mg/L (4.0-12.0)
--- NOTE | 2018-05-27 12:36 | PC.NURSE ---
Addendum entered by Carlee Jarvis R.N. 05/27/18 14:10: report called to alix at [facility]- all questions answered and awaiting transportation Original Note: preparing pt for discharge to [facility] this afternoon, she is comfortable with current dosing of hydrocodone 5/325 (1-2) every 4-6 hours as needed for pain- she has not moved bowels yet but has taken both po docusate as well as miralax this am and feels it wont be long until this occurs- dressings cdi, + cms and using platform walker for ambulation due to left wrist surgery approx 2 weeks ago
--- NOTE | 2018-05-27 12:43 | CM.DPC ---
DCP Cont: Sent discharge info to [facility] at fax # [phone]. Fax confirmation scanned in. [facility] Contact [facility]
== END 2018-05-27 15:04 | DRG 481 ==
LOC: ED 21:34 → AC 21:38
PROVIDERS: Internal Medicine; Orthopaedic Surgery; Admitting Provider Nurse Practitioner Adult Health; Emergency Provider Nurse Practitioner Family; PCP Family Medicine; Visit Provider Nurse Practitioner Adult Health
PROC: 0QS706Z Reposition Left Upper Femur with Intramedullary Internal Fixation Device, Open Approach (ICD-10-PCS; CPT 27245; principal; 2018-05-24 16:00)
DX: M80.852A Other osteoporosis with current pathological fracture, left femur, initial encounter for fracture (principal); E87.1 Hypo-osmolality and hyponatremia; D62 Acute posthemorrhagic anemia; G40.909 Epilepsy, unspecified, not intractable, without status epilepticus; I10 Essential (primary) hypertension; W18.30XA Fall on same level, unspecified, initial encounter; Z87.891 Personal history of nicotine dependence; M25.462 Effusion, left knee
CPT/HCPCS: 36415; 36591; 71045; 72192; 73502; 73552; 73560; 76000; 80048; 80053; 80156; 81001; 83735; 85025; 85610; 85730; 93005; 94762; 96374; 96376; 97110; 97116; 97162; 97167; 97530; 97535; 99283; 99284; J0690; J1200; J2250; J2270; J2274; J2405; J2704; J3010

== ENCOUNTER 2018-06-21 09:45 | Inpatient (IN) | payer MEDICARE, OTHER, SELFPAY ==
[2018-06-18 14:32] VITALS: BMI 20.5
[2018-06-21] VITALS (12 sets, daily range): BP systolic 95–164; BP diastolic 65–104; PULSE 87–122; RESP 10–18; TEMP 36.2–36.9; O2SAT 96–100; BMI 20.5
--- NOTE | 2018-06-21 | DI.RAD.S_ITS ---
PROCEDURE: XR HIP W PEL IF DONE LT 2V INDICATIONS: post operative total left hip TECHNIQUE: AP pelvis and lateral view of the left hip acquired. COMPARISON: None. FINDINGS: Bones: Patient is status post left hip arthroplasty, with hardware components in expected positions. The hip joint appears congruent. The visualized bony structures appear intact. Soft tissues: Overlying postoperative changes are noted. No suspicious soft tissue densities. IMPRESSION: Expected postsurgical change for left hip arthroplasty. Dictated by: Reyna Rehman MD, PhD on 06/21/2018 at 19:53 Approved by: Reyna Rehman MD, PhD on 06/21/2018 at 19:54
[2018-06-21] MEDS: LACTATED RINGERS 1,000 ML 42 ML IV ×2 (10:47→16:55)
--- NOTE | 2018-06-21 11:09 | DI.RAD.S_ITS ---
PROCEDURE: XR HIP W PEL IF DONE LT 2V INDICATIONS: intraoperative total left hip TECHNIQUE: 2 view(s) of the hip acquired. COMPARISON: [facility], ANNEL, XR HIP W PEL IF DONE LT 2V, 05/24/2018, 23:01. FINDINGS: Bones: Patient is status post left hip arthroplasty, with hardware components in expected positions. The hip joint appears congruent. The visualized bony structures appear intact. Soft tissues: Overlying postoperative changes are noted. No suspicious soft tissue densities. IMPRESSION: Expected postsurgical change for left hip arthroplasty. Dictated by: Reyna Rehman MD, PhD on 06/21/2018 at 19:23 Approved by: Reyna Rehman MD, PhD on 06/21/2018 at 19:23
[2018-06-21] MEDS: ACETAMINOPHEN 325 MG TABLET 975 MG PO ×2 (11:10→21:22)
[2018-06-21] MEDS: PREGABALIN 75 MG CAPSULE PO (11:12)
[2018-06-21] MEDS: CELECOXIB 200 MG CAPSULE PO (11:12)
[2018-06-21] MEDS: VANCOMYCIN 1,000 MG/200 ML FROZ.PIGGY 200 MG IV (14:05)
--- NOTE | 2018-06-21 14:29 | PM.PREOP ---
Pre-operative Note Interval Note History & Physical reviewed/Exam performed by Physician: Yes Changes to H&P: No H&P completed within 30 days and has changed as indicated here:: see note from this sunday. failed ORIF needs ISABEL
--- NOTE | 2018-06-21 14:32 | P.OP_ITS ---
Operative Date/Time/Diagnoses Date of procedure: 06/21/18 Time of procedure: 14:54 Pre-op diagnosis: Failed internal fixation with a cephalomedullary nail with a left intertrochanteric hip fracture and left hip osteoarthritis posttraumatic Post-op diagnosis: same Procedure & Clinicians Procedure: Left total hip arthroplasty, removal of internal fixation left hip, ORIF trochanteric fracture Same procedure as scheduled: Yes Indications: This is a pleasant unfortunate 67-year-old female with severe osteoporosis. She has a history of a left proximal femur fracture which was noted to be intertrochanteric with minimal subtrochanteric extension. She previously underwent a cephalomedullary nail. Unfortunately with her severe osteoporosis she had cut out of the proximal screw and failure of fixation with posttraumatic arthritis in her acetabulum. she is brought the operating room for removal of internal fixation, left total hip arthroplasty and fixation of her trochanters as needed. Surgeon: Gabby Patino Associate Music Professor: Elyssa Galvez Anesthesia Type: General and Spinal Operative Notes Findings: Soft bone, acceptable overall alignment and stability Closure Type: primary Prosthetic devices, grafts, tissues, transplants, or devices: Prema Biomet Foss revision hip stem 36 mm head -3.5 neck, size 16 by 225 mm, 50 cup with a 36 mm liner, 1 screw, 1 cerclage wire cobalt chrome Applied: drain(s) Estimated Blood Loss (mL): 350 Blood products transfused: none Procedure in detail: The patient was seen in the pre-operative area, where the patient identified the left hip as the operative site and this was marked with my initials. The patient received pre-operative antibiotics and was taken to the operating room and placed on the operative table in the right lateral decubitus position after satisfactory anesthesia. A time study observer out was performed. The left leg was prepared from the ankle to the iliac crest with ChloroPrep in the usual fashion and draped through sterile drapes. The hip was approached through an approximately 24 cm incision centered over the greater trochanter and curving gently posteriorly as it went proximally. This was carried sharply to the fascia sonal, which was divided and retracted with a self retaining retractor. The trochanteric bursa was excised with care being taken to avoid the sciatic nerve, which was identified and protected throughout the case. an incision was made along the more distal aspect of the femur in the region of the interlocking screws. Gelpi retractor was placed. Dissection was carried out through skin and subcutaneous tissues the fascia was incised and dissection was carried out down to the screws. I did use fluoroscopy for helping localizes screws both screws were removed without difficulty. Extensive posterolateral incision was made and a gelpi retractor as well as a Charnley was placed. Proximally the proximal screw was identified and the soft tissue was carefully cleaned around it. I released the short external rotators from the trochanter and incised the superior aspect of the capsule. The short external rotators and capsule were both tagged. The head was exposed and I resected a portion of the labrum. The screw had migrated through the head which was posteriorly and inferiorly shifted. Attention was then directed to removing the maryjo and unlocking the proximal aspect of the maryjo bony awl was placed in the proximal aspect of the femoral maryjo and then an incision was made in the abductors dissection was carried out down to the broad on the locking screw was removed and then the screw in the femoral head was carefully removed and then the maryjo was removed without difficulty. The hip was dislocated, and a femoral neck osteotomy performed approximately 15 mm above the level of the lesser trochanter region. both the greater trochanter and lesser trochanter were noted to be displaced and somewhat comminuted. A cerclage wire was passed around the proximal femur in order to provide stability for the lesser and greater trochanter and was gently tightened. Retractors were placed to expose the acetabulum. The labrum and central soft tissues were removed. there was a defect in the anterior lateral aspect of the acetabulum. the bony been worn away by the proximal screw. bone from the femoral head was harvested and eventually a small amount was packed into this defect. Reaming was performed initially going up in 2 mm increments, then 1 mm increments until good bite was obtained with an odd sized reamer. The cup 1 mm larger than the last reamer was then inserted using the appropriate anteversion guides. She had very soft bone and a single screw was used for additional stabilization of the cup. A trial neutral liner was placed. A small centralizing Reamer was used to define the canal and fluoroscopy was used to confirm an intramedullary position. the femur was then sequentially reamed with Foss reamers up to a 16 which had good quality bite. The trial stem was placed in the canal. A trial head was then placed and the hip relocated and checked for leg length and stability. An intraoperative fluoro confirmed the component position and no evidence of fracture and adequate appearing fixation. the distal screw holes were visualized and it was opted to go with a 220 mm stem in order to bypass the distal screw holes. Reaming was performed in order to allow adequate seating of the 16 mm longer Foss stem. The patient was stable in the position of sleep, of squatting, and could be put through a range of motion with 45 degrees internal rotation without dislocation. At 90 degrees flexion, internal rotation to 70 was possible before dislocation. This was felt to be satisfactory and the appropriate components were opened, and the trials were removed. The acetabular liner was impacted into position. The final stem was then impacted into the prepared femoral canal. The hip was meticulously irrigated with normal saline. Finally the femoral head was impacted onto the stem. The acetabulum was cleared of all material and the hip relocated one final time. the cerclage wire was meticulously tightened and a final fluoroscopic view confirmed acceptable positioning of the components cerclage wire, fracture and acetabulum. The capsulomuscular flap was then repaired to the greater trochanter using the tag sutures. The short external rotators were repaired with a nonabsorbable polyester. A deep drain was placed and brought out anteriorly. The fascia sonal was closed with Vicryl. The subcutaneous layer was closed with barbed sutures and skin clips. An aura dressing was applied and the patient was taken to recovery having tolerated the procedure well. Complications: none Condition: stable Disposition: Acute Care Plan for aftercare: The patient will be maintained on a standard total hip replacement protocol with weight bearing as tolerated and posterior hip precautions. No hip abduction strengthening. The patient will receive Aspirin and sequential compression devices for DVT prophylaxis. The patient will be discharged home when safe for the home environment.
[2018-06-21] MEDS: CEFAZOLIN 2 GM/100 ML FROZ.PIGGY IV ×2 (15:01→21:21)
--- NOTE | 2018-06-21 15:32 | SUR.OPER ---
Lateral on padded OR bed, head on pillow, gel axillary roll in place, bottom leg bent with gel pad under knee to foot, upper leg straight and supported with pillows. Upper arm supported by pillows and secured over bottom arm to padded arm board. Safety belt at hip, tape over blanket lower legs.
[2018-06-21] MEDS: BUPIVACAINE LIPOSOME 266 MG/20 ML VIAL INJ (15:43)
[2018-06-21] MEDS: SODIUM CHLORIDE IRRIG SOLUTION 250 ML, EPINEPHrine 1 MG IRR (15:44)
[2018-06-21] MEDS: BUPIVACAINE 0.25% W/ EPI 30 ML VIAL 60 ML INJ (15:45)
[2018-06-21 17:59] LABS: Add Manual Diff / Slide Review NO; Basophils Absolute Auto 0 /uL (0-100); Basophils Percent Auto 0.5 % (0-2); Eosinophils Absolute Auto 100 /uL (0-450); Hemoglobin 10.1 g/dL (12.0-16.0); Lymphocytes Absolute Auto 700 /uL (1100-4500); Lymphocytes Percent Auto 11.1 % (25-40); Mean Corpuscular HGB Conc 34.7 % (30-36); Mean Corpuscular Hemoglobin 33.9 PG (26-34); Mean Corpuscular Volume 97.5 fL (80-100); Monocytes Absolute Auto 200 /uL (0-900); Monocytes Percent Auto 2.8 % (3-14); Neutrophils Absolute Auto 5300 /uL (1500-7000); Neutrophils Percent Auto 84.6 % (50-75); Platelet Count 359 X10^3/uL (150-400); Red Blood Cell Count 2.97 X10^6/uL (4.0-5.2); Red Cell Distribution Width 13.1 % (11.6-14.8); White Blood Cell Count 6.3 X10^3/uL (4.5-11.0)
[2018-06-21] MEDS: CEFAZOLIN 1 GM VIAL IRR (18:45)
[2018-06-21] MEDS: LACTATED RINGERS 1,000 ML 125 ML IV (20:53)
--- NOTE | 2018-06-21 21:01 | SUR.PHASEI ---
Post op transfer note: Per verbal order Dr. Patino, In and out Cath attempted x 2 in PACU Labia swollen. unsuccessful. VSS. Patient transfered to IP room 209. Verbal report given to Ondina JANSEN. In and out cath reattempt x 2 with assistance, unsuccessful.
[2018-06-21] MEDS: ASPIRIN EC 81 MG TABLET PO (21:22)
[2018-06-21] MEDS: DOCUSATE 100 MG CAPSULE PO (21:22)
[2018-06-21] MEDS: FERROUS SULFATE 325 MG TABLET PO (21:22)
[2018-06-21] MEDS: carBAMazepine XR 100 MG TAB 400 MG PO (21:23)
[2018-06-21] MEDS: ONDANSETRON 4 MG/2 ML INJ IV (21:42)
--- NOTE | 2018-06-21 22:29 | PC.NURSE ---
2039: arrived from PACU, A&Ox3. 97%RA. pt unable to void. bladder scan over 800cc. In and out cath output 975cc. pt felt slightly nauseous, administered zofran. dressing cdi. Hemovac compressed. oriented pt to the room. call light in reach.
[2018-06-22] VITALS (20 sets, daily range): BP systolic 77–138; BP diastolic 43–86; PULSE 70–111; RESP 15–17; TEMP 36.4–37.6; O2SAT 97–100
[2018-06-22] MEDS: CEFAZOLIN 2 GM/100 ML FROZ.PIGGY IV (05:04)
[2018-06-22] MEDS: LACTATED RINGERS 1,000 ML 125 ML IV ×3 (05:05→20:34)
[2018-06-22 05:25] LABS: Hematocrit 22.9 % (36-46)
--- NOTE | 2018-06-22 06:35 | PC.NURSE ---
NOC Shift: Pt POD 1 ORIF left hip w/previous hardware removal. Pt AAOX3, denies pain most of shift unless moving. Will require pain med when OOB later today. Has regained sensation to left foot, ankle, lower leg. Continues to have numbness to inner upper thigh. Aquaseal dsg CDI w/RAYMOND drain functioning WNL, hemovac w/sanquinous drainage. Started on IS pt able to perform well, states it wears her out. Sats stable. SBP low 90's to 100's, will leave LR running this AM pt not taking much po fluids. Had difficulty urinating post op, straight cathed on eves for large amt. As of 0500 no urge to urinate, bladder scanned for only 212. Has not gotten up OOB yet, will get up with PT this AM.
[2018-06-22] MEDS: HYDROCODONE/ACET 5/325 TABLET 1 TAB PO ×3 (08:13→20:36)
[2018-06-22] MEDS: CHOLECALCIFEROL (VITAMIN D3) 400 UNIT TABLET 800 UNIT PO (08:14)
[2018-06-22] MEDS: ASPIRIN EC 81 MG TABLET PO ×2 (08:14→20:35)
[2018-06-22] MEDS: DOCUSATE 100 MG CAPSULE PO ×2 (08:15→20:35)
[2018-06-22] MEDS: carBAMazepine XR 100 MG TAB 400 MG PO ×2 (08:15→20:34)
[2018-06-22] MEDS: FERROUS SULFATE 325 MG TABLET PO ×2 (08:15→20:35)
[2018-06-22] MEDS: SODIUM CHLORIDE 0.9% FLUSH 10 ML IV ×2 (08:16→20:34)
--- NOTE | 2018-06-22 08:53 | CM.DANOTE ---
Addendum entered by Ashley Donato R.N. 06/22/18 10:13: Called and left a message with admissions at [facility] in [facility], regarding days of Medicare coverage, since she has been at facility. Also has [employer], which is secondary. Will inquire on this as well. Will also discuss transportation, since patient could be discharged tomorrow. Original Note: DCP: Case received, EMR reviewed ad met with patient. Introduced self and role. Sister, Altagracia, was in room as well. DCP template completed with current information. Patient is a 67 year old female who admitted yesterday morning to the care of the surgical team. PCP: Dr. Dennison. Payer: confirmed: Medicare/[employer]etna. Patient came to hospital for surgical procedure. She recently had hip surgery done, and has been at [facility] in [facility]. She then developed problems with a screw in her hip, so she had to have another surgery yesterday. Patient had failed internal fixation nail with left intertrochanter hip fracture. Patient had left total hip arthroplasty. Met with patient in her room. Pleasant. She stated that [facility] is holding her room, for she gave them down payment to do this. She has been there for the last couple of weeks due to recent hip surgery. Prior to surgery, independent. She stated, she had a fall at home, which is why she originally had the surgery. She also has history of osteoporosis. She lives in [facility] alone, and is a . P:DCP to continue to follow. Could possibly be discharged Sunday, and will continue to update [facility]. Ashley Donato RN/[employer]ated [employer] Driver
--- NOTE | 2018-06-22 09:25 | PT.IIE ---
Current Diagnoses Age-related osteoporosis with current pathological fracture, left femur, subsequent encounter for fracture with malunion (06/21/18) Displaced intertrochanteric fracture of left femur, initial encounter for closed fracture (06/21/18) Surgery Performed Operation Date: 06/21/18 12:15 Actual Procedures p Removal HW s/p ORIF to Total(Left) - Gabby Patino MD Surgical History (Last Reviewed 05/24/18 @ 00:34 by BALTAZAR Vu) H/O decompression of ulnar nerve (Acute) History of carpal tunnel release (Acute) Status post decompression of ulnar nerve (Resolved) Medical History (Last Updated 06/18/18 @ 14:42 by Malinda Adame RN) Falls frequently (Acute) Former smoker (Acute) HTN (hypertension) (Acute) Hip fracture, left (Acute 05/24/18) History of patellar fracture (Acute) History of pelvic fracture (Acute) History of wrist fracture (Acute 05/03/18) Osteoporosis with pathological fracture of multiple sites (Acute) Epilepsy (Chronic) Osteoporosis (Chronic) Physical Therapy Inpatient Evaluation/Re-Eval M1 PT/OT-IP Prior Functional Status Start: 06/22/18 12:14 Freq: NEEDED Status: Active Protocol: Document 06/22/18 09:25 AB (Rec: 06/22/18 12:45 AB [id number]) Medical Review Prior Functional Status Medical History Reviewed Yes Communication able to make needs known Mobility and Gait pt stated that prior to first hospitalization ~ 4weeks ago: she is independent with all mobilities and ambulation without AD Prior Functional Level (Other details) pt hospitalized 05/23 s/p fall s/p L hip fx s/p ORIF. pt d/c 'd to SNF afterwards but due to ORIF hardware failure, underwent L ISABEL posterior approach 06/21/18. Social History Household Members none Living Arrangements House Number of Floors (Floors) One Floor Number of Stairs To Enter/Railing? 7 steps with R rail descending Home Environment Standard Height Toilet Walk in Shower Home Equipment Four Wheel Walker Quad Cane Raised Toilet Seat w/Armrests Shower Seat with Backrest Hand Held Shower M2 PT-IP Current Condition Start: 06/22/18 12:14 Freq: NEEDED Status: Active Protocol: Document 06/22/18 09:25 AB (Rec: 06/22/18 12:45 AB [id number]) Physical Therapy Current Condition Current Condition Evaluation Date 06/22/18 Treatment Diagnosis s/p L ISABEL posterior approach; difficulty in walkiing Onset Date 06/21/18 Precautions Posterior Hip Precautions No Hip Flexion > 90 degrees No Hip Internal Rotation No Hip Adduction Other Precautions pt with h/o L wrist ORIF 05/03. stated that Dr. gillespie told her that she cannot use L hand too much but can lift ~ 5# Weight Bearing Status Weight Bearing Status Weight Bear as Tolerated Allowed Weight Bearing Amount (enter % WBAT on LLE or #) (%) limited weight bearing on LUE per pt M3 PT-IP Subjective Start: 06/22/18 12:14 Freq: NEEDED Status: Active Protocol: Document 06/22/18 09:25 AB (Rec: 06/22/18 12:45 AB [id number]) Subjective Physical Therapy Visit Type Type Initial Evaluation Visit Start Time 09:25 Visit Stop Time 10:19 Total Visit Minutes 54 Number of DIRECTOR INFORMATION Visits 0 Physical Therapy Visit Comments Patient Comments pt agreeable to do PT Patient Goals plans to go back to SNF and then home Therapy Pain Assessment Pain When Pain Assessed At Rest Pain Present Pain Present Pain Reported Location Left Hip Scale Used pain scale not stated Pain Management Techniques Apply Cold Re-positioning Timing of Activity with Medications M4 PT-IP Mobility and Gait Start: 06/22/18 12:14 Freq: NEEDED Status: Active Protocol: Document 06/22/18 09:25 AB (Rec: 06/22/18 12:45 AB [id number]) PT-Bed Mobility Assessment Supine to Sit Supine to Sit Standby Assistance Scooting Scooting to Edge of Bed Standby Assistance PT-Transfer Assessment Sit to and From Stand Sit to and from Stand Minimal Assistance 1 Person Assistance Use of Upper Extremities Equipment Transfer Assistive Device Gait Belt Platform Walker Orthotic/Prosthetic Devices or Brace: Yes Comments Mobility Comments pt completed supine to sit SBA with cues for L hip precautions. pt educated on sit <> stand and completed requiring min A and cues. pt without c/o dizziness/ lightheadedness. BP in sitting 110/57. pt ambulated towards the toilet using L PFW but after ~ 10 ft of ambulation, c/o dizziness and feeling hot/sweaty. positioned chair behind pt and instructed pt to sit down. BP checked: 87/43. nurse informed. elevated pt's LE. BP checked again: 77/48. Reclined pt in the chair. BP checked again 94/52. nurse in pt's room. left pt with call light and table within reach. Gait Assessment Gait Gait Assistance Required: Minimum Assistance Distance (Feet) 10 Able to Maintain Weight Bearing Status Yes During Gait Assistive Devices Assistive Device Gait Belt Front Wheeled Walker Orthotic/Prosthetic Devices or Brace: Yes Gait Deviations General Gait Pattern Antalgic Decreased Stride Length Decreased Feet Clearance Factors Limiting Gait Function Factors Limiting Gait Function Decreased Activity Tolerance Decreased Strength Limited Range of Motion Pain Poor Balance PT-Balance Assessment Sitting Balance and Reactions Static Sitting Balance Ability Good Dynamic Sitting Balance Ability Good Standing Balance and Reactions Static Standing Balance Ability Fair Dynamic Standing Balance Ability Fair Device Used PFW M5 PT-IP Objective Assessments Start: 06/22/18 12:14 Freq: NEEDED Status: Active Protocol: Document 06/22/18 09:25 AB (Rec: 06/22/18 12:45 AB [id number]) Orientation Orientation/Cognition Level of Alertness Alert Orientation Name Age Birthday Month Date Year Day of Week Place Situation Language Function Ability No Deficits Noted Safety Awareness Understands Safety Issues Memory Description No Deficits Noted Gross Range of Motion Lower Extremity ROM Assessment Within Functional Limits Strength Lower Extremity Strength Assessment Left Impaired Knee 3+/5 Coordination Assessment Gross Coordination Gross Coordination WNL Muscle Tone Muscle Tone WNL Yes M6 PT-IP Treatment Start: 06/22/18 12:14 Freq: NEEDED Status: Active Protocol: Document 06/22/18 09:25 AB (Rec: 06/22/18 12:45 AB [id number]) Physical Therapy Treatment Education Education Provided Precautions Weight Bearing Status Post-Op Packet Safety Other Treatments Other Treatment Performed educated on posterior hip precautions M7 PT-IP Assessment and Plan Start: 06/22/18 12:14 Freq: NEEDED Status: Active Protocol: Document 06/22/18 09:25 AB (Rec: 06/22/18 12:45 AB [id number]) PT Summary Assessment and Plan Potential Rehabilitation Potential Good Status of Condition at Evaluation Evolving Summary Impairments Pain ROM Strength Balance Coordination Bed Mobility Transfers Gait Activity Tolerance Assessment Summary pt requiring min A with mobility and unable to tolerate much activity this morning due to decrease in BP. pt will benefit from SNF rehab to improve strength and functional independence prior to d/c home. Goals Bed Mobility Goal Independent Transfer Goal Standby Assistance Front Wheeled Walker Gait Goal Standby Assistance Front Wheel Walker Gait Distance 150 Other Goals improve transfers and ambulation using L PFW SBA Days to Meet Goals 5 Frequency of Treatment Frequency Of Treatment Twice a Day Treatment Plan Physical Therapy Treatment Plan Bed Mobility Training Transfer Training Gait Training Therapeutic Exercise Balance Retraining Post Op Education Discharge Planning Hot or Cold Pack Neuromuscular Re-ed Coordination Retraining Manual Therapy Other Recommendations and Next Treatment ambulation Focus Recommendations To Nursing Amount of Assist Needed 1 Person Assist Discharge Recommendations PT Discharge Recommendations SNF Rehab
--- NOTE | 2018-06-22 10:53 | PM.PNPO.1 ---
Subjective Date Patient Seen: 06/22/18 Time Patient Seen: 08:54 Interval history: Patient is a 67 year old female who is POD#1 s/p left total hip arthroplasty with removal of internal fixation and ORIF trochanteric fracture with Dr. Patino. Her pain has been well controlled. She attempted to get up with PT today but became light headed, dizzy, and hypotensive and was returned to bed. She has not yet voided independently and had straight cath last night. Patient denies urge to void at this time and bladder scan reveals <300ml. Denies nausea, chest pain or shortness of breath. Exam Vital Signs (past 8 hours): - 06/22/18 05:20 06/22/18 07:35 06/22/18 09:58 Temperature 97.5 F L 98.0 F Pulse Rate 70 86 103 H Respiratory Rate 16 15 Blood Pressure 92/59 L 87/49 L 110/57 L Pulse Oximetry 99 97 06/22/18 10:11 06/22/18 10:13 06/22/18 10:15 Temperature Pulse Rate 94 H 95 H 99 H Respiratory Rate Blood Pressure 87/43 L 77/48 L 94/52 L Pulse Oximetry 06/22/18 10:18 06/22/18 10:31 06/22/18 10:47 Temperature Pulse Rate 93 H 95 H Respiratory Rate Blood Pressure 84/47 L 90/60 Pulse Oximetry 100 Oxygen Delivery Method Room Air Oxygen Flow Rate 0 Narrative Exam Narrative: Pleasant 67 year old female resting comfortably in bed. RAYMOND dressing in place is clean, dry, and intact with minimal shadow drainage. Drain in place, output overnight was 160cc. Sensation intact in distal extremity. Full active ROM in the ankle. Intact distal pulses. Objective Labs Result Diagrams: 06/22/18 05:05 Labs: Laboratory Results - last 24 hr 06/21/18 06/21/18 06/22/18 17:32 17:32 05:05 WBC 6.3 RBC 2.97 L Hgb 10.1 L 8.0 L Hct 29.0 L 22.9 L MCV 97.5 MCH 33.9 MCHC 34.7 RDW 13.1 Plt Count 359 Neut % (Auto) 84.6 H Lymph % (Auto) 11.1 L Christian % (Auto) 2.8 L Eos % (Auto) 1.0 L Baso % (Auto) 0.5 Neut # (Auto) 5300 Lymph # (Auto) 700 L Christian # (Auto) 200 Eos # (Auto) 100 Baso # (Auto) 0 Blood Type AB Positive Antibody Screen Negative Assessment & Plan Post-op Postoperative Procedures Operation Date: 06/21/18 12:15 Actual Procedures Side Surgeon p Removal HW s/p ORIF to Total Left Gabby A MD Sukumar Patient remains symptomatic with mild tachycardia and hypotension, risks vs benefits of transfusion discussed. Transfusing 2 units PBC today. Patient is to mobilize with PT once lightheadedness resolves. Continue present pain management. Drain removed today. Order in place for straight cath if urinary issue persists.
--- NOTE | 2018-06-22 11:24 | CM.DPC ---
DCP Cont: Was able to get in contact with Librado in admissions at [facility] in [facility]. He stated that patient has approximately 75 days left of Medicare. Confirmed that she also has secondary insurance, A[employer]na. Asked Librado if they can provide picker / packer transportation in case she is discharged tomorrow. He stated that he would look into this and call this telephonic nurse case manager back. P: DCP to continue to follow closely. Could potentially be discharged tomorrow. Will continue to consult with [facility]. Ashley Donato RN/[employer]ifying Plant Operator
--- NOTE | 2018-06-22 13:55 | PT.IPTN ---
Current Diagnoses Age-related osteoporosis with current pathological fracture, left femur, subsequent encounter for fracture with malunion (06/21/18) Displaced intertrochanteric fracture of left femur, initial encounter for closed fracture (06/21/18) Surgery Performed Operation Date: 06/21/18 12:15 Actual Procedures p Removal HW s/p ORIF to Total(Left) - Gabby Patino MD Physical Therapy Treatment Note M2 PT-IP Current Condition Start: 06/22/18 12:14 Freq: NEEDED Status: Active Protocol: Document 06/22/18 09:25 AB (Rec: 06/22/18 12:45 AB [id number]) Physical Therapy Current Condition Current Condition Evaluation Date 06/22/18 Treatment Diagnosis s/p L ISABEL posterior approach; difficulty in walkiing Onset Date 06/21/18 Precautions Posterior Hip Precautions No Hip Flexion > 90 degrees No Hip Internal Rotation No Hip Adduction Other Precautions pt with h/o L wrist ORIF 05/03. stated that Dr. gillespie told her that she cannot use L hand too much but can lift ~ 5# Weight Bearing Status Weight Bearing Status Weight Bear as Tolerated Allowed Weight Bearing Amount (enter % WBAT on LLE or #) (%) limited weight bearing on LUE per pt M3 PT-IP Subjective Start: 06/22/18 12:14 Freq: NEEDED Status: Active Protocol: Document 06/22/18 13:55 GGD (Rec: 06/22/18 13:55 GGD [email or web address]) Subjective Physical Therapy Visit Type Type Administrative Note Notes Hold per RN, pt has low BP and receiving blood. M
[2018-06-22] MEDS: OXYCODONE IR 5 MG TABLET PO (16:53)
[2018-06-22] MEDS: ACETAMINOPHEN 325 MG TABLET 975 MG PO (20:35)
[2018-06-22 21:24] LABS: Hematocrit 32.9 % (36-46); Hemoglobin 11.5 g/dL (12.0-16.0)
--- NOTE | 2018-06-23 | DI.US.S_ITS ---
PROCEDURE: US PERIPH VENOUS LOW EXTREM BI INDICATIONS: calf pain left --immobliization hip fracture. r/o dvt TECHNIQUE: Real-time imaging, as well as color and pulse Doppler interrogation, were performed of the deep veins of both legs from the inguinal ligament to the popliteal fossa. COMPARISON: None. FINDINGS: Right: The common femoral, femoral and popliteal veins are normally compressible, and free of intraluminal thrombus. Color and pulse Doppler demonstrate normal phasic intravascular flow. There is normal augmentation response to distal compression maneuver. Left: The common femoral, femoral and popliteal veins are normally compressible, and free of intraluminal thrombus. Color and pulse Doppler demonstrate normal phasic intravascular flow. There is normal augmentation response to distal compression maneuver. IMPRESSION: No evidence of bilateral lower extremity DVT. Dictated by: Prashanth Macdonald M.D. on 06/23/2018 at 11:07 Approved by: Prashanth Macdonald M.D. on 06/23/2018 at 11:07
[2018-06-23 00:50] VITALS: BP 130/95; PULSE 109; RESP 16; TEMP 37.2; O2SAT 98
[2018-06-23] MEDS: HYDROCODONE/ACET 5/325 TABLET 1 TAB PO ×6 (00:57→22:43)
[2018-06-23 04:32] VITALS: BP 132/80; PULSE 102; RESP 16; TEMP 36.8; O2SAT 99
[2018-06-23 07:17] LABS: Hematocrit 33.8 % (36-46); Hemoglobin 11.3 g/dL (12.0-16.0)
[2018-06-23 08:00] VITALS: BP 144/81; PULSE 101; RESP 18; TEMP 37.1; O2SAT 98
[2018-06-23] MEDS: carBAMazepine XR 100 MG TAB 400 MG PO ×2 (08:36→22:06)
[2018-06-23] MEDS: DOCUSATE 100 MG CAPSULE PO ×2 (08:36→22:06)
[2018-06-23] MEDS: CHOLECALCIFEROL (VITAMIN D3) 400 UNIT TABLET 800 UNIT PO (08:37)
[2018-06-23] MEDS: ASPIRIN EC 81 MG TABLET PO ×2 (08:37→22:06)
[2018-06-23] MEDS: FERROUS SULFATE 325 MG TABLET PO ×2 (08:37→22:06)
[2018-06-23] MEDS: IRBESARTAN 150 MG TABLET PO (08:37)
[2018-06-23] MEDS: ACETAMINOPHEN 325 MG TABLET 975 MG PO (08:37)
[2018-06-23] MEDS: SODIUM CHLORIDE 0.9% FLUSH 10 ML IV ×2 (08:38→22:06)
--- NOTE | 2018-06-23 08:51 | PM.PNPO.1 ---
Subjective Date Patient Seen: 06/23/18 Time Patient Seen: 08:51 Interval history: Postop day 2 status post conversion, left hip fracture a fixation to total hip arthroplasty with Dr. Patino. Patient had symptomatic acute blood-loss anemia and was transfused 2 units yesterday. Hemoglobin responded appropriately to transfusion. Patient vital signs stable and feeling better this morning. Does complain of left calf pain. states this is actually been present for a week to week and a half for so. Describes the feeling of a cramp or AMOS horse, which bothers her more than her hip. patient does feel stronger and able to help mobilize to the bedside commode better than yesterday. Exam Vital Signs (past 8 hours): - 06/23/18 04:32 Temperature 98.2 F Pulse Rate 102 H Respiratory Rate 16 Blood Pressure 132/80 Pulse Oximetry 99 Oxygen Delivery Method Room Air Oxygen Flow Rate 0 Narrative Exam Narrative: General: Alert oriented female in no acute distress vital signs stable afebrile. Eating breakfast HEENT exam: Normocephalic atraumatic Respiratory exam: Unlabored room cv: Regular rate and rhythm Extremity: Left lower extremity with dressing in place. drain was removed yesterday. Dressing clean. Thigh soft. No erythema Calf is soft without obvious swelling. mild tenderness with palpation. sHe demonstrates 5/5 dorsiflexion plantar flexion. sensation grossly intact to light touch. SCDs were not on at the time of the examination S patient states they were bothering her calf that she took them off at night. Objective Labs Result Diagrams: 06/23/18 07:05 Labs: Laboratory Results - last 24 hr 06/21/18 06/22/18 06/23/18 17:32 21:15 07:05 Hgb 11.5 L 11.3 L Hct 32.9 L 33.8 L Blood Type AB Positive Antibody Screen Negative Crossmatch See Detail Assessment & Plan Post-op Postoperative Procedures Operation Date: 06/21/18 12:15 Actual Procedures Side Surgeon p Removal HW s/p ORIF to Total Left Gabby Patino MD 1. Postop day 2 status post left hip arthroplasty ORIF proximal femur. standard postoperative hip replacement precautions. Posterior hip precautions. 2. Acute blood loss anemia resolved after transfusion 3. Left calf pain: Clinical examination low probability DVT -no swelling- however patient has been immobilized/and had orthopedic surgery and has complained of symptoms with persistent calf cramping that will not go away. We will obtain bilateral lower extremity venous Doppler to rule out DVT this may change patient's anticoagulation level, and anticipate continued barriers to mobilization. Patient currently on b.i.d. 81 mg aspirin and SCDs for DVT prophylaxis. will also try small prescription Valium for cramping. 4. Anticipate Discharge to snf when stable Quality VTE Deep Vein Thrombosis/Pulmonary Embolism Present on Admission: No
--- NOTE | 2018-06-23 08:57 | P.PN_ITS ---
Subjective Date Patient Seen: 06/23/18 Time Patient Seen: 08:51 Interval history: Postop day 2 status post conversion, left hip fracture a fixation to total hip arthroplasty with Dr. Patino. Patient had symptomatic acute blood-loss anemia and was transfused 2 units yesterday. Hemoglobin re sponded appropriately to transfusion. Patient vital signs stable and feeling better this morning. Does complain of left calf pain. states this is actually been present for a week to week and a half for so. Describes the feeling of a cramp or AMOS horse, which bothers her more than her hip. patient does feel stronger and able to help mobilize to the bedside commode better than yesterday. Exam Vital Signs (past 8 hours): - 06/23/18 04:32 Temperature 98.2 F Pulse Rate 102 H Respiratory Rate 16 Blood Pressure 132/80 Pulse Oximetry 99 Oxygen Delivery Method Room Air Oxygen Flow Rate 0 Narrative Exam Narrative: General: Alert oriented female in no acute distress vital signs stable afebrile. Eating breakfast HEENT exam: Normocephalic atraumatic Respiratory exam: Unlabored room cv: Regular rate and rhythm Extremity: Left lower extremity with dressing in place. drain was removed yesterday. Dressing clean. Thigh soft. No erythema Calf is soft without obvious swelling. mild tenderness with palpation. sHe demonstrates 5/5 dorsiflexion plantar flexion. sensation grossly intact to lig ht touch. SCDs were not on at the time of the examination S patient states they were bothering her calf that she took them off at night. Objective Labs Result Diagrams: 06/23/18 07:05 Labs: Laboratory Results - last 24 hr 06/21/18 06/22/18 06/23/18 17:32 21:15 07:05 Hgb 11.5 L 11.3 L Hct 32.9 L 33.8 L Blood Type AB Positive Antibody Screen Negative Crossmatch See Detail Assessment & Plan Post-op Postoperative Procedures Operation Date: 06/21/18 12:15 Actual Procedures Side Surgeon p Removal HW s/p ORIF to Total Left Gabby Basil Patino MD 1. Postop day 2 status post left hip arthroplasty ORIF proximal femur. standard postoperative hip replacement precautions. Posterior hip precautions. 2. Acute blood loss anemia resolved after transfusion 3. Left calf pain: Clinical examination low probability DVT -no swelling- however patient has been immobilized/and had orthopedic surgery and has complained of symptoms with persistent calf cramping that will not go away. We will obtain bilateral lower extremity venous Doppler to rule out DVT this may change patient's anticoagulation level, and anticipate continued barriers to mobilization. Patient currently on b.i.d. 81 mg aspirin and SCDs for DVT prophylaxis. will also try small prescription Valium for cramping. 4. Anticipate Discharge to snf when stable Quality VTE Deep Vein Thrombosis/Pulmonary Embolism Present on Admission: No
[2018-06-23] MEDS: diazePAM 2 MG TABLET PO ×4 (09:51→22:43)
--- NOTE | 2018-06-23 10:34 | PT.IPTN ---
Current Diagnoses Age-related osteoporosis with current pathological fracture, left femur, subsequent encounter for fracture with malunion (06/21/18) Displaced intertrochanteric fracture of left femur, initial encounter for closed fracture (06/21/18) Surgery Performed Operation Date: 06/21/18 12:15 Actual Procedures p Removal HW s/p ORIF to Total(Left) - Gabby Patino MD Physical Therapy Treatment Note M2 PT-IP Current Condition Start: 06/22/18 12:14 Freq: NEEDED Status: Active Protocol: Document 06/22/18 09:25 AB (Rec: 06/22/18 12:45 AB [id number]) Physical Therapy Current Condition Current Condition Evaluation Date 06/22/18 Treatment Diagnosis s/p L ISABEL posterior approach; difficulty in walkiing Onset Date 06/21/18 Precautions Posterior Hip Precautions No Hip Flexion > 90 degrees No Hip Internal Rotation No Hip Adduction Other Precautions pt with h/o L wrist ORIF 05/03. stated that Dr. gillespie told her that she cannot use L hand too much but can lift ~ 5# Weight Bearing Status Weight Bearing Status Weight Bear as Tolerated Allowed Weight Bearing Amount (enter % WBAT on LLE or #) (%) limited weight bearing on LUE per pt M3 PT-IP Subjective Start: 06/22/18 12:14 Freq: NEEDED Status: Active Protocol: Document 06/23/18 09:40 CLB (Rec: 06/23/18 10:34 CLB [id number]) Subjective Physical Therapy Visit Type Type Treatment Note Visit Start Time 09:40 Visit Stop Time 10:15 Total Visit Minutes 25 Number of HAUL DRIVER Visits 2 Physical Therapy Visit Comments Patient Comments pt agreeable to do PT, needing to use BSC. Therapy Pain Assessment Pain When Pain Assessed During Mobility Pain Present Pain Present Pain Reported Location Left Hip Intensity 6 Pain Management Techniques Apply Cold Re-positioning Timing of Activity with Medications M4 PT-IP Mobility and Gait Start: 06/22/18 12:14 Freq: NEEDED Status: Active Protocol: Document 06/23/18 09:40 CLB (Rec: 06/23/18 10:34 CLB [id number]) PT-Bed Mobility Assessment Supine to Sit Supine to Sit Minimal Assistance Head of Bed Elevated Scooting Scooting to Edge of Bed Standby Assistance PT-Transfer Assessment Sit to and From Stand Sit to and from Stand Contact Guard Assistance 1 Person Assistance Use of Upper Extremities Equipment Transfer Assistive Device Gait Belt Platform Walker Orthotic/Prosthetic Devices or Brace: Yes Comments Mobility Comments Pt required Min A of LLE during supine to sit. Pt able to perform own pericare with SBA. Gait Assessment Gait Gait Assistance Required: Minimum Assistance Distance (Feet) 10 Able to Maintain Weight Bearing Status Yes During Gait Assistive Devices Assistive Device Gait Belt Front Wheeled Walker Gait Deviations General Gait Pattern Antalgic Decreased Stride Length Decreased Feet Clearance Factors Limiting Gait Function Factors Limiting Gait Function Decreased Activity Tolerance Decreased Strength Limited Range of Motion Pain Poor Balance Comments Gait Comments Pt ambulated ~10ft from left side of bed to chair on right side of bed. Pt required Min A for walker management. M5 PT-IP Objective Assessments Start: 06/22/18 12:14 Freq: NEEDED Status: Active Protocol: Document 06/22/18 09:25 AB (Rec: 06/22/18 12:45 AB [id number]) Orientation Orientation/Cognition Level of Alertness Alert Orientation Name Age Birthday Month Date Year Day of Week Place Situation Language Function Ability No Deficits Noted Safety Awareness Understands Safety Issues Memory Description No Deficits Noted Gross Range of Motion Lower Extremity ROM Assessment Within Functional Limits Strength Lower Extremity Strength Assessment Left Impaired Knee 3+/5 Coordination Assessment Gross Coordination Gross Coordination WNL Muscle Tone Muscle Tone WNL Yes M6 PT-IP Treatment Start: 06/22/18 12:14 Freq: NEEDED Status: Active Protocol: Document 06/23/18 09:40 CLB (Rec: 06/23/18 10:34 CLB [id number]) Physical Therapy Treatment Exercises Exercises Gluteal Sets Quad Sets Education Education Provided Precautions Weight Bearing Status Safety Other Treatments Other Treatment Performed educated on posterior hip precautions M7 PT-IP Assessment and Plan Start: 06/22/18 12:14 Freq: NEEDED Status: Active Protocol: Document 06/23/18 09:40 CLB (Rec: 06/23/18 10:34 CLB [id number]) PT Summary Assessment and Plan Summary Impairments Pain ROM Strength Balance Coordination Bed Mobility Transfers Gait Activity Tolerance Assessment Summary Pt had no c/o lightheadedness and BP remained WNL. Pt requires extra time during ambulation and Min A for walker management. Pt will benefit from SNF rehab to improve strength and functional independence prior to d/c home. Goals Bed Mobility Goal Independent Transfer Goal Standby Assistance Front Wheeled Walker Gait Goal Standby Assistance Front Wheel Walker Gait Distance 150 Other Goals improve transfers and ambulation using L PFW SBA Days to Meet Goals 5 Frequency of Treatment Frequency Of Treatment Twice a Day Treatment Plan Physical Therapy Treatment Plan Bed Mobility Training Transfer Training Gait Training Therapeutic Exercise Balance Retraining Post Op Education Discharge Planning Hot or Cold Pack Neuromuscular Re-ed Coordination Retraining Manual Therapy Other Recommendations and Next Treatment ambulation Focus Recommendations To Nursing Amount of Assist Needed 1 Person Assist Discharge Recommendations PT Discharge Recommendations SNF Rehab
[2018-06-23 11:14] VITALS: BP 136/75; PULSE 103; RESP 16; TEMP 37.2; O2SAT 98
--- NOTE | 2018-06-23 13:56 | PT.IPTN ---
This is to certify that I reviewed this documentation and I am involved with this pt's care. Shun Manley, PT, DPT Current Diagnoses Age-related osteoporosis with current pathological fracture, left femur, subsequent encounter for fracture with malunion (06/21/18) Displaced intertrochanteric fracture of left femur, initial encounter for closed fracture (06/21/18) Surgery Performed Operation Date: 06/21/18 12:15 Actual Procedures p Removal HW s/p ORIF to Total(Left) - Gabby Patino MD Physical Therapy Treatment Note M2 PT-IP Current Condition Start: 06/22/18 12:14 Freq: NEEDED Status: Active Protocol: Document 06/22/18 09:25 AB (Rec: 06/22/18 12:45 AB [id number]) Physical Therapy Current Condition Current Condition Evaluation Date 06/22/18 Treatment Diagnosis s/p L ISABEL posterior approach; difficulty in walkiing Onset Date 06/21/18 Precautions Posterior Hip Precautions No Hip Flexion > 90 degrees No Hip Internal Rotation No Hip Adduction Other Precautions pt with h/o L wrist ORIF 05/03. stated that Dr. gillespie told her that she cannot use L hand too much but can lift ~ 5# Weight Bearing Status Weight Bearing Status Weight Bear as Tolerated Allowed Weight Bearing Amount (enter % WBAT on LLE or #) (%) limited weight bearing on LUE per pt M3 PT-IP Subjective Start: 06/22/18 12:14 Freq: NEEDED Status: Active Protocol: Document 06/23/18 14:27 BS (Rec: 06/23/18 15:15 BS [email or web address]) Subjective Physical Therapy Visit Type Type Treatment Note Visit Start Time 13:56 Visit Stop Time 14:27 Total Visit Minutes 31 Number of GIFT BASKET PACKER Visits 0 Physical Therapy Visit Comments Patient Comments Pt agreeable to PT, requests to use bedside commode. Therapy Pain Assessment Location Left Hip Scale Used pain scale not stated Pain Management Techniques Apply Cold Re-positioning Timing of Activity with Medications M4 PT-IP Mobility and Gait Start: 06/22/18 12:14 Freq: NEEDED Status: Active Protocol: Document 06/23/18 14:27 BS (Rec: 06/23/18 15:15 BS [email or web address]) PT-Bed Mobility Assessment Supine to Sit Supine to Sit Standby Assistance Head of Bed Elevated Scooting Scooting to Edge of Bed Standby Assistance PT-Transfer Assessment Equipment Transfer Assistive Device Gait Belt Platform Walker Orthotic/Prosthetic Devices or Brace: Yes Transfers Transfer Destination Bed Toilet Comments Mobility Comments Pt completed supine to sit transfer with head of bed elevated, was able to swing and lower B LEs off of bedside without assistance. Gait Assessment Gait Gait Assistance Required: Minimum Assistance Distance (Feet) 10 Able to Maintain Weight Bearing Status Yes During Gait Assistive Devices Assistive Device Gait Belt Front Wheeled Walker Orthotic/Prosthetic Devices or Brace: Yes Gait Deviations General Gait Pattern Antalgic Decreased Stride Length Decreased Feet Clearance Factors Limiting Gait Function Factors Limiting Gait Function Decreased Activity Tolerance Decreased Strength Limited Range of Motion Pain Poor Balance Comments Gait Comments Pt ambulated approximately 10' in room to bedside chair with use of gait belt, CGA for safety and use of L platform walker. Pt required Min VCs to avoid L hip IR when turning. M5 PT-IP Objective Assessments Start: 06/22/18 12:14 Freq: NEEDED Status: Active Protocol: Document 06/22/18 09:25 AB (Rec: 06/22/18 12:45 AB [id number]) Orientation Orientation/Cognition Level of Alertness Alert Orientation Name Age Birthday Month Date Year Day of Week Place Situation Language Function Ability No Deficits Noted Safety Awareness Understands Safety Issues Memory Description No Deficits Noted Gross Range of Motion Lower Extremity ROM Assessment Within Functional Limits Strength Lower Extremity Strength Assessment Left Impaired Knee 3+/5 Coordination Assessment Gross Coordination Gross Coordination WNL Muscle Tone Muscle Tone WNL Yes M6 PT-IP Treatment Start: 06/22/18 12:14 Freq: NEEDED Status: Active Protocol: Document 06/23/18 14:27 BS (Rec: 06/23/18 15:15 BS [email or web address]) Physical Therapy Treatment Exercises Exercises Ankle Pumps Education Education Provided Precautions Weight Bearing Status Safety Other Treatments Other Treatment Performed educated on post. hip precautions. Standing marches with platform walker. Ankle pumps in sitting.\ CP for L hip and heated blanket around L calf for pain reduction at end of sesion. M7 PT-IP Assessment and Plan Start: 06/22/18 12:14 Freq: NEEDED Status: Active Protocol: Document 06/23/18 14:27 BS (Rec: 06/23/18 15:15 BS [email or web address]) PT Summary Assessment and Plan Summary Impairments Pain ROM Strength Balance Coordination Bed Mobility Transfers Gait Activity Tolerance Assessment Summary Pt tolerated session well without any dizziness/ lightheadedness. She was able to recite posterior hip precautions and maintained them 85% of the time. Pt remains limited with mobility due to decreased activity tolerance and fatigue. Goals Bed Mobility Goal Independent Transfer Goal Standby Assistance Front Wheeled Walker Gait Goal Standby Assistance Front Wheel Walker Gait Distance 150 Other Goals improve transfers and ambulation using L PFW SBA Days to Meet Goals 5 Frequency of Treatment Frequency Of Treatment Twice a Day Treatment Plan Physical Therapy Treatment Plan Bed Mobility Training Transfer Training Gait Training Therapeutic Exercise Balance Retraining Post Op Education Discharge Planning Hot or Cold Pack Neuromuscular Re-ed Coordination Retraining Manual Therapy Other Recommendations and Next Treatment ambulation Focus Recommendations To Nursing Amount of Assist Needed 1 Person Assist Discharge Recommendations PT Discharge Recommendations SNF Rehab
--- NOTE | 2018-06-23 13:56 | PT.IPTN ---
This is to certify that I reviewed this documentation and I am involved with this pt's care. Shun Manley, PT, DPT Current Diagnoses Age-related osteoporosis with current pathological fracture, left femur, subsequent encounter for fracture with malunion (06/21/18) Displaced intertrochanteric fracture of left femur, initial encounter for closed fracture (06/21/18) Surgery Performed Operation Date: 06/21/18 12:15 Actual Procedures p Removal HW s/p ORIF to Total(Left) - Gabby Patino MD Physical Therapy Treatment Note M2 PT-IP Current Condition Start: 06/22/18 12:14 Freq: NEEDED Status: Active Protocol: Document 06/22/18 09:25 AB (Rec: 06/22/18 12:45 AB [id number]) Physical Therapy Current Condition Current Condition Evaluation Date 06/22/18 Treatment Diagnosis s/p L ISABEL posterior approach; difficulty in walkiing Onset Date 06/21/18 Precautions Posterior Hip Precautions No Hip Flexion > 90 degrees No Hip Internal Rotation No Hip Adduction Other Precautions pt with h/o L wrist ORIF 05/03. stated that Dr. Thompson told her that she cannot use L hand too much but can lift ~ 5# Weight Bearing Status Weight Bearing Status Weight Bear as Tolerated Allowed Weight Bearing Amount (enter % WBAT on LLE or #) (%) limited weight bearing on LUE per pt M3 PT-IP Subjective Start: 06/22/18 12:14 Freq: NEEDED Status: Active Protocol: Document 06/23/18 14:27 BS (Rec: 06/23/18 15:15 BS [email or web address]) Subjective Physical Therapy Visit Type Type Treatment Note Visit Start Time 13:56 Visit Stop Time 14:27 Total Visit Minutes 31 Number of DRYWALL APPLICATION SUPERVISOR Visits 2 Physical Therapy Visit Comments Patient Comments Pt agreeable to PT, requests to use bedside commode. Therapy Pain Assessment Location Left Hip Scale Used pain scale not stated Pain Management Techniques Apply Cold Re-positioning Timing of Activity with Medications M4 PT-IP Mobility and Gait Start: 06/22/18 12:14 Freq: NEEDED Status: Active Protocol: Document 06/23/18 14:27 BS (Rec: 06/23/18 15:15 BS [email or web address]) PT-Bed Mobility Assessment Supine to Sit Supine to Sit Standby Assistance Head of Bed Elevated Scooting Scooting to Edge of Bed Standby Assistance PT-Transfer Assessment Equipment Transfer Assistive Device Gait Belt Platform Walker Orthotic/Prosthetic Devices or Brace: Yes Transfers Transfer Destination Bed Toilet Comments Mobility Comments Pt completed supine to sit transfer with head of bed elevated, was able to swing and lower B LEs off of bedside without assistance. Gait Assessment Gait Gait Assistance Required: Minimum Assistance Distance (Feet) 10 Able to Maintain Weight Bearing Status Yes During Gait Assistive Devices Assistive Device Gait Belt Front Wheeled Walker Orthotic/Prosthetic Devices or Brace: Yes Gait Deviations General Gait Pattern Antalgic Decreased Stride Length Decreased Feet Clearance Factors Limiting Gait Function Factors Limiting Gait Function Decreased Activity Tolerance Decreased Strength Limited Range of Motion Pain Poor Balance Comments Gait Comments Pt ambulated approximately 10' in room to bedside chair with use of gait belt, CGA for safety and use of L platform walker. Pt required Min VCs to avoid L hip IR when turning. M5 PT-IP Objective Assessments Start: 06/22/18 12:14 Freq: NEEDED Status: Active Protocol: Document 06/22/18 09:25 AB (Rec: 06/22/18 12:45 AB [id number]) Orientation Orientation/Cognition Level of Alertness Alert Orientation Name Age Birthday Month Date Year Day of Week Place Situation Language Function Ability No Deficits Noted Safety Awareness Understands Safety Issues Memory Description No Deficits Noted Gross Range of Motion Lower Extremity ROM Assessment Within Functional Limits Strength Lower Extremity Strength Assessment Left Impaired Knee 3+/5 Coordination Assessment Gross Coordination Gross Coordination WNL Muscle Tone Muscle Tone WNL Yes M6 PT-IP Treatment Start: 06/22/18 12:14 Freq: NEEDED Status: Active Protocol: Document 06/23/18 14:27 BS (Rec: 06/23/18 15:15 BS [email or web address]) Physical Therapy Treatment Exercises Exercises Ankle Pumps Education Education Provided Precautions Weight Bearing Status Safety Other Treatments Other Treatment Performed educated on post. hip precautions. Standing marches with platform walker. Ankle pumps in sitting. CP for L hip and heated blanket around L calf for pain reduction at end of session. M7 PT-IP Assessment and Plan Start: 06/22/18 12:14 Freq: NEEDED Status: Active Protocol: Document 06/23/18 14:27 BS (Rec: 06/23/18 15:15 BS [email or web address]) PT Summary Assessment and Plan Summary Impairments Pain ROM Strength Balance Coordination Bed Mobility Transfers Gait Activity Tolerance Assessment Summary Pt tolerated session well without any dizziness/ lightheadedness. She was able to recite posterior hip precautions and maintained them 85% of the time. Pt remains limited with mobility due to decreased activity tolerance and fatigue. Goals Bed Mobility Goal Independent Transfer Goal Standby Assistance Front Wheeled Walker Gait Goal Standby Assistance Front Wheel Walker Gait Distance 150 Other Goals improve transfers and ambulation using L PFW SBA Days to Meet Goals 5 Frequency of Treatment Frequency Of Treatment Twice a Day Treatment Plan Physical Therapy Treatment Plan Bed Mobility Training Transfer Training Gait Training Therapeutic Exercise Balance Retraining Post Op Education Discharge Planning Hot or Cold Pack Neuromuscular Re-ed Coordination Retraining Manual Therapy Other Recommendations and Next Treatment ambulation Focus Recommendations To Nursing Amount of Assist Needed 1 Person Assist Discharge Recommendations PT Discharge Recommendations SNF Rehab
--- NOTE | 2018-06-23 14:53 | PC.NURSE ---
SHIFT SUMMARY: PATIENT TOLERATING PAIN WELL AFTER XANAX ORDERED FOR MUSCLE CRAMPING TO LEFT CALF. U/S NEGATIVE FOR DVT. TAKING VICODIN AND XANAX AND TYLENOL FOR PAIN. TITRATING TYLENOL TO AVOID MAX DOSE FOR 24HRS. PAIN 4/10 AFTER UP TO RECLINER W/ PHYSICAL THERAPY. OVERALL AN UNEVENTFUL SHIFT. PATIENT HAS HAD HER SISTER AT BEDSIDE, AND HAS BEEN FACE-TIMING W/ HER FRIENDS.
[2018-06-23 15:00] VITALS: BP 120/61; PULSE 104; RESP 16; TEMP 37.4; O2SAT 97
[2018-06-23 19:00] VITALS: BP 137/85; PULSE 100; RESP 16; TEMP 37.4; O2SAT 99
[2018-06-24 01:40] VITALS: BP 130/85; PULSE 108; RESP 18; TEMP 36.9; O2SAT 99
[2018-06-24] MEDS: HYDROCODONE/ACET 5/325 TABLET 1 TAB PO ×5 (03:05→19:03)
[2018-06-24] MEDS: diazePAM 2 MG TABLET PO ×5 (03:06→20:50)
--- NOTE | 2018-06-24 04:49 | PC.NURSE ---
SHIFT 11p-7a Report received, care assumed. Sinus tach on tele; other VSS. Pain under control; pt. requests [place] and Valium administered every four hours, waking her if necessary. Up to bedside commode with one person assist. SCD's declined.
[2018-06-24 05:50] VITALS: BP 137/81; PULSE 94; RESP 16; TEMP 36.8; O2SAT 100
[2018-06-24 07:00] VITALS: BP 152/95; PULSE 99; RESP 15; TEMP 37.4; O2SAT 100
--- NOTE | 2018-06-24 07:27 | PM.PNPO.1 ---
Subjective Date Patient Seen: 06/24/18 Time Patient Seen: 07:27 Interval history: Pain moderate. Patient has been having bilateral calf pain which is improved with Valium. Denies fever chills. No nausea vomiting. No shortness of breath or chest pain. Exam Vital Signs (past 8 hours): - 06/24/18 01:40 06/24/18 05:50 Temperature 98.5 F 98.2 F Pulse Rate 108 H 94 H Respiratory Rate 18 16 Blood Pressure 130/85 137/81 Pulse Oximetry 99 100 Oxygen Delivery Method Room Air Oxygen Flow Rate 0 Narrative Exam Narrative: Pleasant 67-year-old female resting comfortably in bed in no apparent distress. aura dressing on left hip is functioning, clean dry and intact. both calves are soft and nontender. Negative Homans bilaterally. Objective Labs Result Diagrams: 06/23/18 07:05 Labs: Laboratory Results - last 24 hr 06/23/18 07:05 Hgb 11.3 L Hct 33.8 L Assessment & Plan Post-op Postoperative Procedures Operation Date: 06/21/18 12:15 Actual Procedures Side Surgeon p Removal HW s/p ORIF to Total Left Gabby Basil Patino MD Postop day 3 status post left total hip arthroplasty, removal of internal fixation left hip, ORIF trochanteric fracture. patient progressing slower than expected secondary to acute blood loss anemia and bilateral lower extremity weakness. she will mobilize today with physical therapy likely discharge to [facility] facility tomorrow. Quality VTE Deep Vein Thrombosis/Pulmonary Embolism Present on Admission: No
--- NOTE | 2018-06-24 07:31 | P.PN_ITS ---
Subjective Date Patient Seen: 06/24/18 Time Patient Seen: 07:27 Interval history: Pain moderate. Patient has been having bilateral calf pain which is improved with Valium. Denies fever chills. No nausea vomiting. No shortness of breath or chest pain. Exam Vital Signs (past 8 hours): - 06/24/18 01:40 06/24/18 05:50 Temperature 98.5 F 98.2 F Pulse Rate 108 H 94 H Respiratory Rate 18 16 Blood Pressure 130/85 137/81 Pulse Oximetry 99 100 Oxygen Delivery Method Room Air Oxygen Flow Rate 0 Narrative Exam Narrative: Pleasant 67-year-old female resting comfortably in bed in no apparent distress. aura dressing on left hip is functioning, clean dry and intact. both calves are soft and nontender. Negative Homans bilaterally. Objective Labs Result Diagrams: 06/23/18 07:05 Labs: Laboratory Results - last 24 hr 06/23/18 07:05 Hgb 11.3 L Hct 33.8 L Assessment & Plan Post-op Postoperative Procedures Operation Date: 06/21/18 12:15 Actual Procedures Side Surgeon p Removal HW s/p ORIF to Total Left Gabby Basil Patino MD Postop day 3 status post left total hip arthroplasty, removal of internal fix ation left hip, ORIF trochanteric fracture. patient progressing slower than expected secondary to acute blood loss anemia and bilateral lower extremity weakness. she will mobilize today with physical therapy likely discharge to [facility] facility tomorrow. Quality VTE Deep Vein Thrombosis/Pulmonary Embolism Present on Admission: No
[2018-06-24] MEDS: ASPIRIN EC 81 MG TABLET PO ×2 (09:00→20:51)
[2018-06-24] MEDS: ACETAMINOPHEN 325 MG TABLET 975 MG PO ×2 (09:00→20:51)
[2018-06-24] MEDS: carBAMazepine XR 100 MG TAB 400 MG PO ×2 (09:00→20:50)
[2018-06-24] MEDS: FERROUS SULFATE 325 MG TABLET PO ×2 (09:01→20:50)
[2018-06-24] MEDS: DOCUSATE 100 MG CAPSULE PO ×2 (09:01→20:50)
[2018-06-24] MEDS: CHOLECALCIFEROL (VITAMIN D3) 400 UNIT TABLET 800 UNIT PO (09:01)
[2018-06-24] MEDS: IRBESARTAN 150 MG TABLET PO (09:02)
[2018-06-24] MEDS: SODIUM CHLORIDE 0.9% FLUSH 10 ML IV ×2 (09:03→20:50)
[2018-06-24 11:00] VITALS: BP 120/73; PULSE 97; RESP 16; TEMP 37.2; O2SAT 97
--- NOTE | 2018-06-24 11:12 | CM.DPC ---
Addendum entered by Jumana South LPN 06/24/18 12:37: [facility] transport will plan for 1330 pickup tomorrow if pt is d/c'd. Justine also confirms business office is updated expected d/c date and says there is not a problem holding the bed for her. Original Note: DCP: case received and discussed in Team Rounds. EMR reviewed. Met now with pt to confirm her dc plan as RN abner Miller noted some confusion from the nurses standpoint. Pt confirms she has been rehabbing at [facility] since her initial hip surgery here at in April 2018. She has paid a bed hold in order to keep her private room at the [facility] and says she did expect she might d/c today so had only paid accordingly. She notes that the therapy there has been excellent. She says she is now post surgery and am starting over so wants to make sure the facility staff are aware of this. Agreed to update [facility]/done: discussed with Justine/[facility]. Justine does not think there will be a problem re the bed hold, she will followup with their billing office. She plans to set up transport van for early afternoon in prep for the expected d/c. PASRR: not indicated as pt is returning to the snf without PASRR indicated changes. P: check in tomorrow and follow accordingly. (RN abner Miller as well as INDERJIT Palma are updated.)
[2018-06-24 15:40] VITALS: BP 122/76; PULSE 100; RESP 18; TEMP 37.1; O2SAT 98
--- NOTE | 2018-06-24 16:43 | PT.IPTN ---
Current Diagnoses Age-related osteoporosis with current pathological fracture, left femur, subsequent encounter for fracture with malunion (06/21/18) Displaced intertrochanteric fracture of left femur, initial encounter for closed fracture (06/21/18) Surgery Performed Operation Date: 06/21/18 12:15 Actual Procedures p Removal HW s/p ORIF to Total(Left) - Gabby Patino MD Physical Therapy Treatment Note M2 PT-IP Current Condition Start: 06/22/18 12:14 Freq: NEEDED Status: Active Protocol: Document 06/22/18 09:25 AB (Rec: 06/22/18 12:45 AB [id number]) Physical Therapy Current Condition Current Condition Evaluation Date 06/22/18 Treatment Diagnosis s/p L ISABEL posterior approach; difficulty in walkiing Onset Date 06/21/18 Precautions Posterior Hip Precautions No Hip Flexion > 90 degrees No Hip Internal Rotation No Hip Adduction Other Precautions pt with h/o L wrist ORIF 05/03. stated that Dr. gillespie told her that she cannot use L hand too much but can lift ~ 5# Weight Bearing Status Weight Bearing Status Weight Bear as Tolerated Allowed Weight Bearing Amount (enter % WBAT on LLE or #) (%) limited weight bearing on LUE per pt M3 PT-IP Subjective Start: 06/22/18 12:14 Freq: NEEDED Status: Active Protocol: Document 06/24/18 09:15 CLB (Rec: 06/24/18 16:43 CLB [id number]) Subjective Physical Therapy Visit Type Type Treatment Note Visit Start Time 09:15 Visit Stop Time 09:40 Total Visit Minutes 25 Number of MILK PASTEURIZER Visits 1 Physical Therapy Visit Comments Patient Comments Pt agreeable to PT, requests to ambulate to bathroom. Therapy Pain Assessment Pain When Pain Assessed During Mobility Pain Present Pain Present Pain Reported Location Left Hip Scale Used pain scale not stated Pain Management Techniques Apply Cold Re-positioning Timing of Activity with Medications M4 PT-IP Mobility and Gait Start: 06/22/18 12:14 Freq: NEEDED Status: Active Protocol: Document 06/24/18 09:15 CLB (Rec: 06/24/18 16:43 CLB [id number]) PT-Bed Mobility Assessment Supine to Sit Supine to Sit Standby Assistance Head of Bed Elevated Scooting Scooting to Edge of Bed Standby Assistance PT-Transfer Assessment Sit to and From Stand Sit to and from Stand Contact Guard Assistance 1 Person Assistance Use of Upper Extremities Equipment Transfer Assistive Device Gait Belt Platform Walker Orthotic/Prosthetic Devices or Brace: Yes Transfers Transfer Destination Chair Toilet Comments Mobility Comments Pt required cues during supine to sit to prevent no 90 degrees of hip flx. Pt able to perform own pericare but required assist with gown due to LUE. Gait Assessment Gait Gait Assistance Required: Contact Guard Assist 1 Person Assist Distance (Feet) 20 Able to Maintain Weight Bearing Status Yes During Gait Assistive Devices Assistive Device Gait Belt Platform Walker Orthotic/Prosthetic Devices or Brace: Yes Gait Deviations General Gait Pattern Antalgic Decreased Stride Length Decreased Feet Clearance Factors Limiting Gait Function Factors Limiting Gait Function Decreased Activity Tolerance Decreased Strength Limited Range of Motion Pain Poor Balance Comments Gait Comments Pt improved with gait quality and was able to manage platform walker w/o assistance . M5 PT-IP Objective Assessments Start: 06/22/18 12:14 Freq: NEEDED Status: Active Protocol: Document 06/22/18 09:25 AB (Rec: 06/22/18 12:45 AB [id number]) Orientation Orientation/Cognition Level of Alertness Alert Orientation Name Age Birthday Month Date Year Day of Week Place Situation Language Function Ability No Deficits Noted Safety Awareness Understands Safety Issues Memory Description No Deficits Noted Gross Range of Motion Lower Extremity ROM Assessment Within Functional Limits Strength Lower Extremity Strength Assessment Left Impaired Knee 3+/5 Coordination Assessment Gross Coordination Gross Coordination WNL Muscle Tone Muscle Tone WNL Yes M6 PT-IP Treatment Start: 06/22/18 12:14 Freq: NEEDED Status: Active Protocol: Document 06/24/18 09:15 CLB (Rec: 06/24/18 16:43 CLB [id number]) Physical Therapy Treatment Exercises Exercises Gluteal Sets Quad Sets Heel Slides Education Education Provided Precautions Weight Bearing Status Safety M7 PT-IP Assessment and Plan Start: 06/22/18 12:14 Freq: NEEDED Status: Active Protocol: Document 06/24/18 09:15 CLB (Rec: 06/24/18 16:43 CLB [id number]) PT Summary Assessment and Plan Summary Impairments Pain ROM Strength Balance Coordination Bed Mobility Transfers Gait Activity Tolerance Assessment Summary Pt improved with bed mobility requiring SBA and CGA for gait improving with management of platform walker. Goals Bed Mobility Goal Independent Transfer Goal Standby Assistance Front Wheeled Walker Gait Goal Standby Assistance Front Wheel Walker Gait Distance 150 Other Goals improve transfers and ambulation using L PFW SBA Days to Meet Goals 5 Frequency of Treatment Frequency Of Treatment Twice a Day Treatment Plan Physical Therapy Treatment Plan Bed Mobility Training Transfer Training Gait Training Therapeutic Exercise Balance Retraining Post Op Education Discharge Planning Hot or Cold Pack Neuromuscular Re-ed Coordination Retraining Manual Therapy Recommendations To Nursing Amount of Assist Needed 1 Person Assist Discharge Recommendations PT Discharge Recommendations SNF Rehab
--- NOTE | 2018-06-24 16:55 | PT.IPTN ---
Current Diagnoses Age-related osteoporosis with current pathological fracture, left femur, subsequent encounter for fracture with malunion (06/21/18) Displaced intertrochanteric fracture of left femur, initial encounter for closed fracture (06/21/18) Surgery Performed Operation Date: 06/21/18 12:15 Actual Procedures p Removal HW s/p ORIF to Total(Left) - Gabby Patino MD Physical Therapy Treatment Note M2 PT-IP Current Condition Start: 06/22/18 12:14 Freq: NEEDED Status: Active Protocol: Document 06/22/18 09:25 AB (Rec: 06/22/18 12:45 AB [id number]) Physical Therapy Current Condition Current Condition Evaluation Date 06/22/18 Treatment Diagnosis s/p L ISABEL posterior approach; difficulty in walkiing Onset Date 06/21/18 Precautions Posterior Hip Precautions No Hip Flexion > 90 degrees No Hip Internal Rotation No Hip Adduction Other Precautions pt with h/o L wrist ORIF 05/03. stated that Dr. gillespie told her that she cannot use L hand too much but can lift ~ 5# Weight Bearing Status Weight Bearing Status Weight Bear as Tolerated Allowed Weight Bearing Amount (enter % WBAT on LLE or #) (%) limited weight bearing on LUE per pt M3 PT-IP Subjective Start: 06/22/18 12:14 Freq: NEEDED Status: Active Protocol: Document 06/24/18 14:50 CLB (Rec: 06/24/18 16:55 CLB [id number]) Subjective Physical Therapy Visit Type Type Treatment Note Visit Start Time 14:50 Visit Stop Time 15:28 Total Visit Minutes 38 Notes Sister Altagracia present during tx . Number of PIPE INSULATOR HELPER Visits 2 Physical Therapy Visit Comments Patient Comments Pt agreeable to do therapy. Therapy Pain Assessment Pain When Pain Assessed During Mobility Pain Present Pain Present Pain Reported Location Left Hip Intensity 3 Scale Used Numeric (1 - 10) Pain Management Techniques Apply Cold Re-positioning Timing of Activity with Medications M4 PT-IP Mobility and Gait Start: 06/22/18 12:14 Freq: NEEDED Status: Active Protocol: Document 06/24/18 14:50 CLB (Rec: 06/24/18 16:55 CLB [id number]) PT-Bed Mobility Assessment Sit to Supine Sit to Supine Standby Assistance 1 Person Assistance Scooting Scooting Up and Down in Bed Standby Assistance PT-Transfer Assessment Sit to and From Stand Sit to and from Stand Standby Assistance 1 Person Assistance Use of Upper Extremities Equipment Transfer Assistive Device Gait Belt Platform Walker Orthotic/Prosthetic Devices or Brace: Yes Transfers Transfer Destination Bed Toilet Comments Mobility Comments Pt requires Min A with gown and toilet flushing due to LUE brace. Gait Assessment Gait Gait Assistance Required: Standby Assistance Contact Guard Assist 1 Person Assist Distance (Feet) 60 Able to Maintain Weight Bearing Status Yes During Gait Assistive Devices Assistive Device Gait Belt Platform Walker Orthotic/Prosthetic Devices or Brace: Yes Gait Deviations General Gait Pattern Antalgic Decreased Stride Length Decreased Feet Clearance Factors Limiting Gait Function Factors Limiting Gait Function Decreased Activity Tolerance Decreased Strength Limited Range of Motion Pain Comments Gait Comments Pt increased gait distance and was able to walk in [place] ~ 60ft with small step through gait pattern and self management of platform walker. M5 PT-IP Objective Assessments Start: 06/22/18 12:14 Freq: NEEDED Status: Active Protocol: Document 06/22/18 09:25 AB (Rec: 06/22/18 12:45 AB [id number]) Orientation Orientation/Cognition Level of Alertness Alert Orientation Name Age Birthday Month Date Year Day of Week Place Situation Language Function Ability No Deficits Noted Safety Awareness Understands Safety Issues Memory Description No Deficits Noted Gross Range of Motion Lower Extremity ROM Assessment Within Functional Limits Strength Lower Extremity Strength Assessment Left Impaired Knee 3+/5 Coordination Assessment Gross Coordination Gross Coordination WNL Muscle Tone Muscle Tone WNL Yes M6 PT-IP Treatment Start: 06/22/18 12:14 Freq: NEEDED Status: Active Protocol: Document 06/24/18 14:50 CLB (Rec: 06/24/18 16:55 CLB [id number]) Physical Therapy Treatment Exercises Exercises Gluteal Sets Quad Sets Heel Slides Education Education Provided Precautions Weight Bearing Status Safety M7 PT-IP Assessment and Plan Start: 06/22/18 12:14 Freq: NEEDED Status: Active Protocol: Document 06/24/18 14:50 CLB (Rec: 06/24/18 16:55 CLB [id number]) PT Summary Assessment and Plan Summary Impairments Pain ROM Strength Balance Coordination Bed Mobility Transfers Gait Activity Tolerance Assessment Summary Pt ambulated ~60ft in [place] SBA /CGA with good management of platform walker and small step through gait pattern. Pt able to manage LLE into bed. Pt left with ice on left hip and left knee and warm blanket around left calf. Goals Bed Mobility Goal Independent Transfer Goal Standby Assistance Front Wheeled Walker Gait Goal Standby Assistance Front Wheel Walker Gait Distance 150 Other Goals improve transfers and ambulation using L PFW SBA Days to Meet Goals 5 Treatment Plan Physical Therapy Treatment Plan Bed Mobility Training Transfer Training Gait Training Therapeutic Exercise Balance Retraining Post Op Education Discharge Planning Hot or Cold Pack Neuromuscular Re-ed Coordination Retraining Manual Therapy Other Recommendations and Next Treatment transfers, ambulation and ther Focus ex. Recommendations To Nursing Amount of Assist Needed 1 Person Assist Discharge Recommendations PT Discharge Recommendations SNF Rehab
[2018-06-24 19:34] VITALS: BP 143/83; PULSE 102; RESP 16; TEMP 37.4; O2SAT 98
[2018-06-25] MEDS: HYDROCODONE/ACET 5/325 TABLET 1 TAB PO ×3 (00:08→12:57)
[2018-06-25 00:15] VITALS: BP 136/83; PULSE 85; RESP 16; TEMP 36.5; O2SAT 99
--- NOTE | 2018-06-25 03:45 | PC.NURSE ---
SHIFT 11p-7a) Bedside report, care assumed. Pt. A&Ox3, VSS, reports pain well-managed. Resting comfortably. RAYMOND dressing intact, green light.
[2018-06-25 04:00] VITALS: BP 150/91; PULSE 93; RESP 16; TEMP 37; O2SAT 100
[2018-06-25] MEDS: diazePAM 2 MG TABLET PO ×2 (05:43→12:57)
[2018-06-25 07:10] VITALS: BP 136/87; PULSE 91; RESP 16; TEMP 36.6; O2SAT 100
[2018-06-25] MEDS: POLYETHYLENE GLYCOL 3350 17 GM POWD.PACK PO (08:29)
[2018-06-25] MEDS: ACETAMINOPHEN 325 MG TABLET 975 MG PO (08:29)
[2018-06-25] MEDS: IRBESARTAN 150 MG TABLET PO (08:31)
[2018-06-25] MEDS: FERROUS SULFATE 325 MG TABLET PO (08:31)
[2018-06-25] MEDS: CHOLECALCIFEROL (VITAMIN D3) 400 UNIT TABLET 800 UNIT PO (08:32)
[2018-06-25] MEDS: ASPIRIN EC 81 MG TABLET PO (08:32)
[2018-06-25] MEDS: carBAMazepine XR 100 MG TAB 400 MG PO (08:32)
[2018-06-25] MEDS: DOCUSATE 100 MG CAPSULE PO (08:32)
[2018-06-25] MEDS: SODIUM CHLORIDE 0.9% FLUSH 10 ML IV (08:33)
--- NOTE | 2018-06-25 08:53 | PM.DS.1 ---
History of Present Illness Date Patient Seen: 06/25/18 Time Patient Seen: 08:54 Chief complaint: [id number] Narrative: Hospital day 5, postop day 4 following left hip failed DHS and IM maryjo with hardware removal and total hip arthroplasty with ORIF of trochanteric fracture by Dr. Patino. Patient has remained stable postoperatively. Did have postoperative anemia and received 2 units PRBC 2 days ago. Has remained stable since then. Progressing with physical therapy but still needing assist. She has lexii dressing. patient is scheduled to go to [facility] [place] today. taking [address] 5 mg and Valium for pain. Discharge Providers Date of admission: 06/21/18 09:45 Discharge Date: 06/25/18 Primary care physician: Pamela Dennison MD Consults: 06/21/18 11:09 Consult to Anesthesiology Routine Comment: Consulting Provider: Anesthesiologist Reason for consultation: Regional block for post operative pain control 06/21/18 20:36 Consult to Discharge Planning Routine Comment: Consult to Physical Therapy Evaluate & Treat Comment: no abductor strengthening, wbat, posterior hip pre Physician Instructions: post op ISABEL protocol Consult to Respiratory Therapy Evaluate & Treat Comment: Physician Instructions: Evaluate and treat Discharge provider: Chadwick Damon PA-C Summary Discharge Diagnosis: Status post left hip hardware removal with total hip arthroplasty and ORIF trochanteric fracture Hospital Course: Patient brought to hospital on 06/21/2018 for above-noted surgery. she remained stable orthopedically. Did develop postoperative anemia on postop day 2 and received 2 units of PRBC. Blood counts remained stable. progressed gradually with physical therapy. Still needing assist for transfers and ambulation. Ready for discharge to SNF on postop day 4. Status at Discharge Cognitive/behavioral status at discharge: oriented Functional status at discharge: uses cane/walker Overall status at discharge: patient is progressing back to baseline Time Spent with Patient Less than 30 minutes Exam Vital Signs (past 8 hours): - 06/25/18 04:00 06/25/18 07:10 Temperature 98.6 F 97.8 F Pulse Rate 93 H 91 H Respiratory Rate 16 16 Blood Pressure 150/91 H 136/87 Pulse Oximetry 100 100 Oxygen Delivery Method Room Air Oxygen Flow Rate 0 Narrative Exam Narrative: Alert, oriented no acute distress lying in bed. legs. Lexii dressing to left hip is dry without drainage or inflammation. Good vacuum. No calf pain or swelling. pulses symmetrical. Objective Labs Result Diagrams: 06/23/18 07:05 Discharge Plan Discharge Plan Patient Disposition: SNF Transfer to: [facility] Under care of provider: Facility MD or PCP Transportation: Facility vehicle Labs: Hemogram on 07/01/[address] Patino. Discharge comment: Keep lexii dressing in place until postop visit. If battery runs down may cut the tubing and placed tape over the end. Postop visit at [facility] [place] office on 07/01/[address] Patino. I certify the postop hospital snf care is medically necessary on a continuing basis for any conditions for which he/ she received care during this hospitalization.: Yes The receiving facility has agreed to accept transfer and provide medical treatment.: Yes Discharge Med Rec/Prescriptions Prescriptions: New acetaminophen 325 mg Tablet 975 mg PO TID Qty: 60 RF: 0 polyethylene glycol 3350 17 gram Powder In Packet 17 gm PO DAILY PRN (Reason: Constipation) Qty: 5 RF: 0 hydrocodone-acetaminophen 5-325 mg Tablet 1 tab PO Q4H PRN (Reason: Pain, Moderate (4-6)) Qty: 30 RF: 0 aspirin 81 mg Tablet,Delayed Release (Dr/Ec) 81 mg PO BID Qty: 60 RF: 0 diazepam 2 mg Tablet 2 mg PO Q4HR PRN (Reason: Spasms) Qty: 15 RF: 0 Continued carbamazepine 400 MG tablet extended release 12 hr 400 mg PO Q12H Qty: 0 RF: 0 irbesartan 150 mg Tablet 150 mg PO DAILY RF: 0 docusate sodium 100 mg Capsule 100 mg PO BID 30 Days Qty: 60 RF: 0 Prolia 60 mg/mL syringe 60 mg SUBCUT [id number] Qty: 1 RF: 0 calcium carbonate [Calcium 500] 500 mg calcium (1,250 mg) tablet 500 mg PO BID MDD 1000 mg 30 Days Qty: 60 RF: 0 cholecalciferol (vitamin D3) [Vitamin D3] 400 unit tablet 800 unit PO DAILY 30 Days RF: 0 ferrous sulfate [iron] 325 mg (65 mg iron) tablet 325 mg PO BID Qty: 60 RF: 0 Discontinued hydrocodone-acetaminophen 5-325 mg Tablet 2 tab PO Q4H PRN (Reason: Pain, Severe (7-10)) Qty: 20 RF: 0 Follow up/Referrals: Pamela Dennison MD [Primary Care Provider] - Discharge Health Status Multidrug resistant organism: No MDRO Provider Discharge Instructions Diet: Diet as Tolerated Liquid consistency: Normal/Thin Food texture: Regular Activity: Ambulate as tolerated. Use walker as needed. posterior total hip arthroplasty precautions x6 weeks postop. Cold/Heat Therapy: Cold pack to left hip as needed. Skin/Wound/Dressing Care Report to your healthcare provider any signs of infection, such as:: chills, fever, night sweats, increased pain, unusual drainage and unusual redness Dressing: Keep lexii dressing in place until postop visit. If battery run step-down may cut the tubing and placed tape over the end. Special Rehabilitation Services Reason for rehabilitation: Post-operative therapy Rehab type: Physical therapy and Occupational therapy Restrictions to mobility: Left posterior total hip arthroplasty precautions. Visit Report/Discharge Packet Instructions: Blood Transfusion, DI for Hip Replacement Discharge Data Primary Care Provider: Pamela Dennison Attending Provider: Gabby Patino Admit Date/Time: 06/21/18 09:45 Quality VTE Deep Vein Thrombosis/Pulmonary Embolism Present on Admission: No
--- NOTE | 2018-06-25 09:01 | P.DS_ITS ---
History of Present Illness Date Patient Seen: 06/25/18 Time Patient Seen: 08:54 Chief complaint: [id number] LEFT Narrative: Hospital day 5, postop day 4 following left hip failed DHS and IM maryjo with hardware removal and total hip arthroplasty with ORIF of trochanteric fracture by Dr. Patino. Patient has remained stable postoperatively. Did have postoperative anemia and received 2 units PRBC 2 days ago. Has remained stable since then. Progressing with physical therapy but still needing assist. She has lexii dressing. patient is scheduled to go to [facility] [place] today. taking [place] 5 mg and Valium for pain. Discharge Providers Date of admission: 06/21/18 09:45 Discharge Date: 06/25/18 Primary care physician: Pamela Dennison MD Consults: 06/21/18 11:09 Consult to Anesthesiology Routine Comment: Consulting Provider: Anesthesiologist Reason for consultation: Regional block for post operative pain control 06/21/18 20:36 Consult to Discharge Planning Routine Comment: Consult to Physical Therapy Evaluate & Treat Comment: no abductor strengthening, wbat, posterior hip pre Physician Instructions: post op ISABEL protocol Consult to Respiratory Therapy Evaluate & Treat Comment: Physician Instructions: Evaluate and treat Discharge provider: Chadwick Damon PA-C Summary Discharge Diagnosis: Status post left hip hardware removal with total hip arthroplasty and ORIF trochanteric fracture Hospital Course: Patient brought to hospital on 06/21/2018 for above-noted surgery. she remained stable orthopedically. Did develop postoperative anemia on postop day 2 and received 2 units of PRBC. Blood counts remained stable. progressed gradually with physical therapy. Still needing assist for transfers and ambulation. Ready for discharge to SNF on postop day 4. Status at Discharge Cognitive/behavioral status at discharge: oriented Functional status at discharge: uses cane/walker Overall status at discharge: patient is progressing back to baseline Time Spent with Patient Less than 30 minutes Exam Vital Signs (past 8 hours): - 06/25/18 04:00 06/25/18 07:10 Temperature 98.6 F 97.8 F Pulse Rate 93 H 91 H Respiratory Rate 16 16 Blood Pressure 150/91 H 136/87 Pulse Oximetry 100 100 Oxygen Delivery Method Room Air Oxygen Flow Rate 0 Narrative Exam Narrative: Alert, oriented no acute distress lying in bed. legs. Lexii dressing to left hip is dry without drainage or inflammation. Good vacuum. No calf pain or swelling. pulses symmetrical. Objective Labs Result Diagrams: 06/23/18 07:05 Discharge Plan Discharge Plan Patient Disposition: SNF Transfer to: [facility] Under care of provider: Facility MD or PCP Transportation: Facility vehicle Labs: Hemogram on 07/01/[address] Patino. Discharge comment: Keep lexii dressing in place until postop visit. If battery runs down may cut the tubing and placed tape over the end. Postop visit at [facility] [place] office on 07/01/[address] Patino. I certify the postop hospital retirement care is medically necessary on a continuing basis for any conditions for which he/ she received care during this hospitalization.: Yes The receiving facility has agreed to accept transfer and provide medical treatment.: Yes Discharge Med Rec/Prescriptions Prescriptions: New acetaminophen 325 mg Tablet 975 mg PO TID Qty: 60 RF: 0 polyethylene glycol 3350 17 gram Powder In Packet 17 gm PO DAILY PRN (Reason: Constipation) Qty: 5 RF: 0 hydrocodone-acetaminophen 5-325 mg Tablet 1 tab PO Q4H PRN (Reason: Pain, Moderate (4-6)) Qty: 30 RF: 0 aspirin 81 mg Tablet,Delayed Release (Dr/Ec) 81 mg PO BID Qty: 60 RF: 0 diazepam 2 mg Tablet 2 mg PO Q4HR PRN (Reason: Spasms) Qty: 15 RF: 0 Continued carbamazepine 400 MG tablet extended release 12 hr 400 mg PO Q12H Qty: 0 RF: 0 irbesartan 150 mg Tablet 150 mg PO DAILY RF: 0 docusate sodium 100 mg Capsule 100 mg PO BID 30 Days Qty: 60 RF: 0 Prolia 60 mg/mL syringe 60 mg SUBCUT [id number] Qty: 1 RF: 0 calcium carbonate [Calcium 500] 500 mg calcium (1,250 mg) tablet 500 mg PO BID MDD 1000 mg 30 Days Qty: 60 RF: 0 cholecalciferol (vitamin D3) [Vitamin D3] 400 unit tablet 800 unit PO DAILY 30 Days RF: 0 ferrous sulfate [iron] 325 mg (65 mg iron) tablet 325 mg PO BID Qty: 60 RF: 0 Discontinued hydrocodone-acetaminophen 5-325 mg Tablet 2 tab PO Q4H PRN (Reason: Pain, Severe (7-10)) Qty: 20 RF: 0 Follow up/Referrals: Pamela Dennison MD [Primary Care Provider] - Discharge Health Status Multidrug resistant organism: No MDRO Provider Discharge Instructions Diet: Diet as Tolerated Liquid consistency: Normal/Thin Food texture: Regular Activity: Ambulate as tolerated. Use walker as needed. posterior total hip arthroplasty precautions x6 weeks postop. Cold/Heat Therapy: Cold pack to left hip as needed. Skin/Wound/Dressing Care Report to your healthcare provider any signs of infection, such as:: chills, fever, night sweats, increased pain, unusual drainage and unusual redness Dressing: Keep lexii dressing in place until postop visit. If battery run step- down may cut the tubing and placed tape over the end. Special Rehabilitation Services Reason for rehabilitation: Post-operative therapy Rehab type: Physical therapy and Occupational therapy Restrictions to mobility: Left posterior total hip arthroplasty precautions. Visit Report/Discharge Packet Instructions: Blood Transfusion, DI for Hip Replacement Discharge Data Primary Care Provider: Pamela Dennison Attending Provider: Gabby Patino Admit Date/Time: 06/21/18 09:45 Quality VTE Deep Vein Thrombosis/Pulmonary Embolism Present on Admission: No
--- NOTE | 2018-06-25 10:24 | CM.DPC ---
DCP: continued: Pt now with d/c orders as per plan. Vm is left for [facility]. [facility] transport is set for 1330/as per plan of yesterday. All orders are faxed. [facility] is updated. Pt is updated and remains agreeable to same. Will follow prn until pt leaves.
--- NOTE | 2018-06-25 11:50 | PT.IPTN ---
Current Diagnoses Age-related osteoporosis with current pathological fracture, left femur, subsequent encounter for fracture with malunion (06/21/18) Displaced intertrochanteric fracture of left femur, initial encounter for closed fracture (06/21/18) Surgery Performed Operation Date: 06/21/18 12:15 Actual Procedures p Removal HW s/p ORIF to Total(Left) - Gabby Patino MD Physical Therapy Treatment Note M2 PT-IP Current Condition Start: 06/22/18 12:14 Freq: NEEDED Status: Active Protocol: Document 06/22/18 09:25 AB (Rec: 06/22/18 12:45 AB [id number]) Physical Therapy Current Condition Current Condition Evaluation Date 06/22/18 Treatment Diagnosis s/p L ISABEL posterior approach; difficulty in walkiing Onset Date 06/21/18 Precautions Posterior Hip Precautions No Hip Flexion > 90 degrees No Hip Internal Rotation No Hip Adduction Other Precautions pt with h/o L wrist ORIF 05/03. stated that Dr. gillespie told her that she cannot use L hand too much but can lift ~ 5# Weight Bearing Status Weight Bearing Status Weight Bear as Tolerated Allowed Weight Bearing Amount (enter % WBAT on LLE or #) (%) limited weight bearing on LUE per pt M3 PT-IP Subjective Start: 06/22/18 12:14 Freq: NEEDED Status: Active Protocol: Document 06/25/18 10:48 CLB (Rec: 06/25/18 11:50 CLB [id number]) Subjective Physical Therapy Visit Type Type Treatment Note Visit Start Time 10:48 Visit Stop Time 11:05 Total Visit Minutes 17 Number of INDUSTRIAL REGISTERED NURSE Visits 3 Physical Therapy Visit Comments Patient Comments Pt agreeable to do therapy but didn't want to go too far from the bathroom. Therapy Pain Assessment Pain When Pain Assessed During Mobility Pain Present Pain Present Pain Reported Location Left Hip Intensity 3 Scale Used Numeric (1 - 10) Pain Management Techniques Apply Cold Re-positioning Timing of Activity with Medications M4 PT-IP Mobility and Gait Start: 06/22/18 12:14 Freq: NEEDED Status: Active Protocol: Document 06/25/18 10:48 CLB (Rec: 06/25/18 11:50 CLB [id number]) PT-Bed Mobility Assessment Supine to Sit Supine to Sit Standby Assistance Head of Bed Elevated Sit to Supine Sit to Supine Standby Assistance Scooting Scooting to Edge of Bed Standby Assistance Scooting Up and Down in Bed Standby Assistance PT-Transfer Assessment Sit to and From Stand Sit to and from Stand Standby Assistance 1 Person Assistance Use of Upper Extremities Equipment Transfer Assistive Device Gait Belt Platform Walker Orthotic/Prosthetic Devices or Brace: Yes Transfers Transfer Destination Bed Comments Mobility Comments Pt doing well with all mobility. Gait Assessment Gait Gait Assistance Required: Standby Assistance Distance (Feet) 120 Able to Maintain Weight Bearing Status Yes During Gait Assistive Devices Assistive Device Gait Belt Platform Walker Orthotic/Prosthetic Devices or Brace: Yes Gait Deviations General Gait Pattern Antalgic Decreased Stride Length Decreased Feet Clearance Factors Limiting Gait Function Factors Limiting Gait Function Decreased Activity Tolerance Decreased Strength Limited Range of Motion Pain Comments Gait Comments Pt able to ambulate ~120ft SBA with use of platform walker. M5 PT-IP Objective Assessments Start: 06/22/18 12:14 Freq: NEEDED Status: Active Protocol: Document 06/22/18 09:25 AB (Rec: 06/22/18 12:45 AB [id number]) Orientation Orientation/Cognition Level of Alertness Alert Orientation Name Age Birthday Month Date Year Day of Week Place Situation Language Function Ability No Deficits Noted Safety Awareness Understands Safety Issues Memory Description No Deficits Noted Gross Range of Motion Lower Extremity ROM Assessment Within Functional Limits Strength Lower Extremity Strength Assessment Left Impaired Knee 3+/5 Coordination Assessment Gross Coordination Gross Coordination WNL Muscle Tone Muscle Tone WNL Yes M6 PT-IP Treatment Start: 06/22/18 12:14 Freq: NEEDED Status: Active Protocol: Document 06/25/18 10:48 CLB (Rec: 06/25/18 11:50 CLB [id number]) Physical Therapy Treatment Exercises Exercises Heel Slides Education Education Provided Precautions M7 PT-IP Assessment and Plan Start: 06/22/18 12:14 Freq: NEEDED Status: Active Protocol: Document 06/25/18 10:48 CLB (Rec: 06/25/18 11:50 CLB [id number]) PT Summary Assessment and Plan Summary Impairments Pain ROM Strength Balance Coordination Bed Mobility Transfers Gait Activity Tolerance Assessment Summary Pt able to recall all posterior hip precaution. Pt is SBA for all bed mobility and transfers as well as ambulation. Pt increased ambulation to ~120ft with good safety awareness and walker management. Goals Bed Mobility Goal Independent Transfer Goal Standby Assistance Front Wheeled Walker Gait Goal Standby Assistance Front Wheel Walker Other Goals improve transfers and ambulation using L PFW SBA Days to Meet Goals 5 Frequency of Treatment Frequency Of Treatment Twice a Day Treatment Plan Physical Therapy Treatment Plan Bed Mobility Training Transfer Training Gait Training Therapeutic Exercise Balance Retraining Post Op Education Discharge Planning Hot or Cold Pack Neuromuscular Re-ed Coordination Retraining Manual Therapy Recommendations To Nursing Amount of Assist Needed 1 Person Assist Discharge Recommendations PT Discharge Recommendations SNF Rehab
--- NOTE | 2018-06-25 12:52 | PC.NURSE ---
Report called to MAIN [facility] RN. Gave full Pt status and answered all questions. Pt out via w/c by [employer]IV[employer] with MAIN fong and all belongings.
== END 2018-06-25 13:01 | DRG 470 ==
PROVIDERS: Anesthesiology; Physician Assistant Surgical; Admitting Provider Orthopaedic Surgery; PCP Family Medicine; Visit Provider Orthopaedic Surgery
PROC: 0SRB02A Replacement of Left Hip Joint with Metal on Polyethylene Synthetic Substitute, Uncemented, Open Approach (ICD-10-PCS; principal; 2018-06-21 12:15)
DX: T84.125A Displacement of internal fixation device of left femur, initial encounter (principal); M80.052A Age-related osteoporosis with current pathological fracture, left femur, initial encounter for fracture; D62 Acute posthemorrhagic anemia; M16.52 Unilateral post-traumatic osteoarthritis, left hip; I10 Essential (primary) hypertension; M79.662 Pain in left lower leg; M79.661 Pain in right lower leg
CPT/HCPCS: 36415; 36430; 73502; 85014; 85018; 85025; 86850; 86900; 86901; 93970; 97110; 97116; 97162; 97530; C1776; P9016; C9290; J0171; J0690; J1100; J1200; J2250; J2405; J2704; J3010; J3370